=== PATIENT | male | born 1940 | race Caucasian/White ===

== ENCOUNTER 2017-02-05 11:44 | Inpatient (IN) | payer OTHER ==
[~2017-02-05] VITALS: Ht 175.3 cm; Wt 99.8 kg
--- NOTE | 2017-02-05 11:58 | NUR ---
PT STATES THAT HE HAS BEEN HAVING INCREASED URINATION AND MID ABD PAIN, APPETITE HAS BEEN FOR THE PAST FEW DAYS ABLE TO EAT BUT ONLY SOUPS ANS DRINK JUICES. PT STATES THAT HE NOTED THAT HE IS LEAKING URINE SO HE HAS TO WHERE A PAD.PT STATES THAT HE ALSO WAS JUST TREATED FOR YEAST INFECTION BY DR CASTELLANO.
--- NOTE | 2017-02-05 12:28 | NUR ---
LAB UNABLE TO ACCEPT URINE LABEL WAS DATED 2011 PLEASE RECOLLECT URINE WHEN PT IS ABLE TO GO AGAIN
--- NOTE | 2017-02-05 12:35 | NUR ---
PT AMB TO ROOM 2, AWAITING EVAL.
--- NOTE | 2017-02-05 12:42 | ED GENERAL ADULT ---
See Addendum History of Present Illness General Chief Complaint: General Adult Stated Complaint: PT WAS SIB DR Source: patient, family Exam Limitations: no limitations Vital Signs & Intake/Output Vital Signs & Intake/Output Vital Signs Date Time Temp Pulse Resp B/P B/P Pulse O2 O2 Flow FiO2 Mean Ox Delivery Rate 02/10 0838 78 130/80 02/09 0837 78 130/80 02/09 0658 98.5 70 16 122/82 96 Room Air 02/08 2246 98.7 71 20 122/72 95 02/08 1427 97.7 85 20 122/60 96 Room Air ED Intake and Output 02/09 0000 02/08 1200 Intake Total 700 320 Output Total 400 900 Balance 300 -580 Intake, IV 100 120 Intake, Oral 600 200 Output, Urine 400 900 Allergies Coded Allergies: No Known Allergies (02/05/17) Triage Note: PT STATES THAT HE HAS BEEN HAVING INCREASED URINATION AND MID ABD PAIN, APPETITE HAS BEEN FOR THE PAST FEW DAYS ABLE TO EAT BUT ONLY SOUPS ANS DRINK JUICES. PT STATES THAT HE NOTED THAT HE IS LEAKING URINE SO HE HAS TO WHERE A PAD.PT STATES THAT HE ALSO WAS JUST TREATED FOR YEAST INFECTION BY DR SANTOS. Triage Nurses Notes Reviewed? yes Onset: Gradual Duration: day(s): (5) Timing: no prior history Injury Environment: home Severity: severe Severity Numbers: 8 No Modifying Factors: none HPI: Patient is a 77-year-old male presenting to the emergency department with his sister with chief complaint of worsening urinary incontinence and malaise with weakness and dry mouth over the past 5 days. It started after Wednesday. He was seen and evaluated last week for an upper respiratory infection, put on antibiotics. Patient reports that he's been feeling "foggy" for the past 5 days. Denies any dysuria. No hematuria. He saw Dr. Santos after he saw his primary care physician and he was diagnosed with a fungal infection on his penis. He was treated with a topical ointment which has improved the rash. Patient denying fevers but reports chills. No chest pain. No shortness of breath. He called Dr. Santos regarding the urinary incontinence and he said it could be related to the medications he is put on. No history of diabetes. (DOREEN GARCÍA,NEGRA) Reconcile Medications Cephalexin 500 MG CAPSULE 1 CAP PO WEEKLY ABX (Reported) Fish Oil/Borage/Flax/Om3,6,9#1 ([place] 3-6-9 1,200 MG Softgel) 1,200 MG CAPSULE 1 CAP PO DAILY SUPPLEMENT (Reported) Multivitamin (One Daily Multivitamin) 1 EACH TABLET 1 TAB PO DAILY SUPPLEMENT (Reported) Rosuvastatin Calcium (Crestor) 5 MG TABLET 1 TAB PO DAILY CHOLESTEROL ( Reported) Trandolapril 1 MG TABLET 1 MG PO D HTN (Reported) Ubidecarenone (Coq-10) 100 MG CAPSULE 200 MG PO D HEART (Reported) (MELISSA CHAUHAN,JONNA) Past History Travel History Traveled to [place] past 21 day No Medical History Any Pertinent Medical History? 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 No (NEGRA GUZMAN) Review of Systems Review of Systems Constitutional: Reports: malaise, weakness. Comments Review of systems: See HPI, All other systems negative. Constitutional, no chills fever or weight loss HEENT: No visual changes no sore throat Cardiovascular: No chest pain ,palpitation , orthopnea or ankle swelling Skin, no jaundice no rashes Respiratory: No dyspnea cough sputum or hemoptysis GI: No nausea no vomiting : No dysuria No hematuria Muscle skeletal: no back pain, no neck pain, Neurologic: No numbness Psych: No stress anxiety or depression,. Heme/endocrine: No bruising no bleeding no polyuria or polydipsia Immunology: No splenectomy or history of AIDS (NEGRA GUZMAN) Physical Exam Physical Exam General Appearance: well developed/nourished, no apparent distress, alert, awake , comfortable Comments: Well-developed well-nourished person in no acute distress HEENT: extraocular motion intact, no nystagmus. Pupils equally round and reactive to light and accommodation. Nose is atraumatic. External auditory canal and Tympanic membranes clear. Pharynx normal. No swelling or edema. Very dry oral mucosa. Dry cracked lips. Neck: Supple, no lymphadenopathy, normal range of motion without pain or tenderness Back: Nontender, no CVA tenderness. Full range of motion Cardiovascular: Regular rate and rhythms no murmurs rubs or gallops, normal JVP Respiratory: Chest nontender. No respiratory distress.breath sounds clear to auscultation bilaterally Abdomen: Soft, mild tenderness to palpation in the suprapubic region, nondistended, no appreciable organomegaly. Normal bowel sounds. No ascites, no rebound or guarding, gu: No rashes, no testicular pain with palpation. Urine actively coming out of the urethra with movement of the penis. Extremity: No edema, no calf tenderness to palpation, normal and equal pulses. Muscular strength is 5 out of 5 in upper and lower extremities. Asset Manager strength is equal and symmetric bilaterally. Neuro: Alert oriented x3, motor sensory normal, cranial nerves II through XII grossly intact. Cerebellar testing is unremarkable. Skin: No appreciable rash on exposed skin, skin is warm and dry. Psych: Mood and affect is normal, memory and judgment is normal. Core Measures ACS in differential dx? Yes CVA/TIA Diagnosis: No Severe Sepsis Present: No Septic Shock Present: No (DOREEN GARCÍA,NEGRA) Progress Differential Diagnoses I considered the following diagnoses in my evaluation of the patient: Electrolyte abnormality, dehydration, New-onset diabetes, UTI, overflow incontinence Plan of Care: Orders Procedure Date/time Status CBC WITHOUT DIFFERENTIAL 02/09 06 Complete BASIC ELECTROLYTES PLUS BUN&CR 02/09 06 Complete Nursing Misc 02/08 UNK Active Current Medications Sig/Claire Start time Last Medication Dose Stop Time Status Admin Insulin Detemir 12 UNITS BID 02/07 2200 AC 02/09 (Levemir) 0836 Insulin Aspart 0 AT BEDTIME 02/06 2200 AC 02/08 (NovoLOG) 2150 Ampicillin 2,000 MG Q8H 02/06 1800 AC 02/09 (Omnipen-N- 0229 Polycillin 2GM Inj Eloisa) Sodium Chloride 100 ML (Normal Saline 0.9%) Lisinopril 10 MG DAILY 02/06 1429 AC 02/09 (Prinivil) 0838 Tamsulosin HCl 0.4 MG DAILY 02/06 1000 AC 02/09 (Flomax) 0837 Insulin Aspart 0 TIDAC 02/06 0900 AC 02/09 (NovoLOG) 0837 Atorvastatin Calcium 5 MG 1700 02/05 1800 AC 02/08 (Lipitor) 1604 Acetaminophen 325 MG Q6 PRN 02/05 1500 AC (Tylenol) Morphine Sulfate 1 MG Q4 PRN 02/05 1500 AC (Morphine) Oxycodone/ 1 TAB Q6 PRN 02/05 1500 AC Acetaminophen (Percocet) Laboratory Tests 02/09/17 0630: Anion Gap 7, Estimated GFR > 60, BUN/Creatinine Ratio 20.0, CBC w Diff NO MAN DIFF REQ, RBC 3.87 L, MCV 92.5, MCH 31.4 H, RDW 13.0, MPV 8.3, Gran % 51.4, Lymphocytes % 40.9, Monocytes % 4.3, Eosinophils % 3.0, Basophils % 0.4, Absolute Granulocytes 2.5, Absolute Lymphocytes 2.0, Absolute Monocytes 0.2, Absolute Eosinophils 0.1, Absolute Basophils 0, PUBS MCHC 34.0 Initial ED EKG: sinus rhythm at 76 bpm, peaked T waves in the anterolateral leads. Comments: 02/05/2017 1:08:44 PMpatient is alert and orientated mentating well. Patient has extremely dry oral mucosa, complaining about urinary incontinence 5 days. No history of diabetes. We will assess CBC, CMP, troponin and EKG. 02/05/2017 2:30:23 PM patient and family members informed of all lab work results. Patient likely in DKA. No acidosis noted on arterial blood gas. Patient will go to the ICU. IV fluids still infusing. Patient also received calcium gluconate to help stabilize cardiac membranes. 02/05/2017 3:09:34 PM patient will be admitted to the ICU for DKA new onset diabetes. Blood glucose level is 1149. Patient is hyperkalemic, peaked T waves on EKG. Insulin drip going. Spoke with Dr. Tolliver and MOD. (NEGRA GUZMAN) Departure Departure Time of Disposition: 1435 Disposition: STILL A PATIENT Condition: Stable Clinical Impression Primary Impression: DKA (diabetic ketoacidoses) Qualifiers: Diabetes mellitus type: type 2 Diabetes mellitus complication detail: without coma Qualified Code: E13.10 - Other specified diabetes mellitus with ketoacidosis without coma Secondary Impressions: Acute electrocardiogram changes, Hyperkaluria Referrals: TOMA TOLLIVER MD (PCP/Family) Departure Forms: Customer Survey General Discharge Information Admission Note Spoke With: TOMA TOLLIVER MD Documentation of Exam: Documentation of any treatments & extenuating circumstances including Concerns Regarding Discharge (functional status, medication knowledge or non-compliance, living conditions, etc.) that warrant an admission rather than observation: Patient requiring insulin drip for hyperglycemia and DKA, will need endocrinology consultation, medication administration/consultation, IV hydration , serial fingerstick checks. Discharge at this time and medically harmful. Patient will also need serial EKGs to make sure that peaked T waves trend down. (NEGRA GUZMAN) PA/UNDERWATER TRAPPER Co-Sign Statement Statement: ED Attending supervision documentation- [X] I saw and evaluated the patient. I have also reviewed all the pertinent lab results and diagnostic results. I agree with the findings and the plan of care as documented in the PA's/UNDERWATER TRAPPER's documentation. [X] I have reviewed the ED Record and agree with the PA's/UNDERWATER TRAPPER's documentation. [] Additions or exceptions (if any) to the PAs/UNDERWATER TRAPPER's note and plan are summarized below: [] (MELISSA CHAUHAN,JONNA) Critical Care Note Critical Care Note Critical Care Time: 30-74 min (NEGRA GUZMAN) 02/05/2017 2:30:23 PM patient and family members informed of all lab work results. Patient likely in DKA. No acidosis noted on arterial blood gas. Patient will go to the ICU. IV fluids still infusing. Patient also received calcium gluconate to help stabilize cardiac membranes. 02/05/2017 3:09:34 PM patient will be admitted to the ICU for DKA new onset diabetes. Blood glucose level is 1149. Patient is hyperkalemic, peaked T waves on EKG. Insulin drip going. Spoke with Dr. Tolliver and MOD. (NEGRA GUZMAN) Departure Departure Time of Disposition: 1435 Disposition: STILL A PATIENT Condition: Stable Clinical Impression Primary Impression: DKA (diabetic ketoacidoses) Qualifiers: Diabetes mellitus type: type 2 Diabetes mellitus complication detail: without coma Qualified Code: E13.10 - Other specified diabetes mellitus with ketoacidosis without coma Secondary Impressions: Acute electrocardiogram changes, Hyperkaluria Referrals: TOMA TOLLIVER MD (PCP/Family) Departure Forms: Customer Survey General Discharge Information Admission Note Spoke With: TOMA TOLLIVER MD Documentation of Exam: Documentation of any treatments & extenuating circumstances including Concerns Regarding Discharge (functional status, medication knowledge or non-compliance, living conditions, etc.) that warrant an admission rather than observation: Patient requiring insulin drip for hyperglycemia and DKA, will need endocrinology consultation, medication administration/consultation, IV hydration , serial fingerstick checks. Discharge at this time and medically harmful. Patient will also need serial EKGs to make sure that peaked T waves trend down. (NEGRA GUZMAN) PA/UNDERWATER TRAPPER Co-Sign Statement Statement: ED Attending supervision documentation- [X] I saw and evaluated the patient. I have also reviewed all the pertinent lab results and diagnostic results. I agree with the findings and the plan of care as documented in the PA's/UNDERWATER TRAPPER's documentation. [X] I have reviewed the ED Record and agree with the PA's/UNDERWATER TRAPPER's documentation. [] Additions or exceptions (if any) to the PAs/UNDERWATER TRAPPER's note and plan are summarized below: [] (MELISSA CHAUHAN,JONNA) Critical Care Note Critical Care Note Critical Care Time: 30-74 min (NEGRA GUZMAN)
--- NOTE | 2017-02-05 12:50 | NUR ---
URINE SENT. CLEAR AND REEVES TOP ONLY. RAQUEL LOGAN IN FOR EVAL.
[2017-02-05 13:21] LABS: ABSOLUTE BASOPHIL COUNT 0 /CUMM (0.0-0.2); ABSOLUTE EOSINOPHIL COUNT 0 /CUMM (0.0-0.7); ABSOLUTE GRANULOCYTE CT 11.1 /CUMM (1.4-6.5); ABSOLUTE LYMPH COUNT 0.7 /CUMM (1.2-3.4); ABSOLUTE MONOCYTE COUNT 0.5 /CUMM (0.10-0.60); BASOPHIL % 0.3 % (0.0-2.0); EOSINOPHIL % 0 % (0-5); HEMATOCRIT 47.2 % (42-52); MEAN CORPUSCULAR HGB 31.5 PG (27.0-31.0); MEAN CORPUSCULAR HGB CONC 33.1 G/DL (33.0-37.0); MEAN CORPUSCULAR VOLUME 95.2 FL (80.0-94.0); MEAN PLATELET VOLUME 9.2 FL (7.4-10.4); PLATELET COUNT 137 /CUMM (130-400); RBC DISTRIBUTION WIDTH 12.7 % (11.5-14.5); RED BLOOD CELL CT 4.96 /CUMM (4.70-6.10); WHITE BLOOD CELL COUNT 12.4 /CUMM (4.8-10.8)
[2017-02-05 13:41] LABS: GRANULOCYTE % 89.7 % (42.2-75.2)
--- NOTE | 2017-02-05 14:03 | NUR ---
CRITICAL TEST RESULTS [id number] AAKASH CHENEY F 77 M TESTS AND RESULTS: GLUCOSE 1146 & POTASSIUM 6.7 Results received and read back by: FÉLIX MONTENEGRO Results received date and time: 02/05/17 1404 The following provider was notified of the results, and read the results back: RAQUEL LOGAN AND ELDA CARMEN Notified date and time: 02/05/17 at 1404
--- NOTE | 2017-02-05 14:55 | History & Physical ---
See Addendum JLUIS CHAUHAN,SILVERIO 02/05/17 1454: General Information and HPI MD Statement: I have seen and personally examined AAKASH CHENEY and documented this H&P. The patient is a 77 year old M who presented with a patient stated chief complaint of urinary incontinence, polyuria and polydipsia. Source of Information: patient, family, old records Exam Limitations: no limitations History of Present Illness: Mr. Cheney is a 77-year-old gentleman with past medical history of hypertension, HLD, and BPH who presented to the emergency department on 02/05/2017 complaining of urinary incontinence, polyuria and polydipsia. The patient states that approximately 4 weeks ago he developed a productive cough and symptoms of a URI. He visit with his primary care physician Dr. Tolliver who gave him an antibiotic [Cephalexin 500 mg (01/18-01/28)] and a short dose of prednisone (10 mg 01/18-01/29). On 01/25 the patient followed up with his urologist Dr. Santos who began the patient on finasteride (5 mg) and a combination of nystatin (100mg (01/25-02/04) and fluconazole (100 mg 01/25-02/04) for symptomatic relief from a questionable fungal infection which the patient had recently developed. Fungal infection was on his penis. He also has noted that he has continued to have urinary frequency with episodes occuring every 15 minutes. Approximately 24 hours ago patient found that he had decreasing control over his bladder up until early this afternoon when the patient came in with complete loss of bladder control. The patient does report that over the last 7 days he has decreased by mouth intake and has been unable to consume any food. During this time however, he has felt very thirsty. He denies any family history of diabetes His sister Lilian was present in the room at the time of the encounter. 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 Home Who Do You Live With? self Services at Home: None Primary Language: [place] R[place] Smoking Status: Never Smoked ETOH Use: heavy use, Daily Use. Glass of wine daily. . Illicit Drug Use: denies illicit drug use Functional Ability ADLs Independent: dressing, eating, toileting, bathing. Ambulation: independent IADLs Independent: shopping, housework, finances, food prep, telephone, transportation , medication admin. Review of Systems Review of Systems Constitutional: Reports: malaise, weakness. Denies: chills, diaphoresis, fever. Cardiovascular: Denies: chest pain, edema, orthopena, palpitations. Respiratory: Denies: cough, hemoptysis, orthopnea, short of breath. GI: Reports: distention. Denies: abdominal pain, bloating, constipation, diarrhea, bowel incontinence, melena, nausea, bloody stool. Genitourinary: Reports: frequency, hesitation, nocturia, pain, urgency. Denies: discharge, dysuria, hematuria. Musculoskeletal: Denies: back pain, gout, joint pain, joint swelling. Skin: Denies: cysts, change in skin color, change in hair/nails, dryness. Exam & Diagnostic Data Last 24 Hrs of Vital Signs/I&O Vital Signs Date Time Temp Pulse Resp B/P B/P Pulse O2 O2 Flow FiO2 Mean Ox Delivery Rate 02/05 1616 98.4 92 18 153/76 94 Room Air Room Air 02/05 1511 97.9 80 20 181/80 987 Room Air 02/05 1358 98.0 100 18 170/80 96 Room Air 02/05 1315 98 Room Air 02/05 1155 97.1 104 18 153/81 96 Room Air Intake & Output 02/05 1600 02/05 0800 02/05 0000 Intake Total 1000 Output Total Balance 1000 Intake, IV 1000 Patient 99.79 kg Weight Physical Exam General Appearance Alert, Oriented X3, Cooperative Skin Bilaterral Lower Extemity Warts Skin Temp/Moisture Exam: Warm/Dry HEENT Atraumatic, PERRLA, EOMI, Mucous Membranes Dry Cardiovascular Regular Rate, Normal S1, Normal S2 Lungs Clear to Auscultation Abdomen Normal Bowel Sounds, Soft, Distended, Tenderness on deep palpation Neurological Normal Gait, Normal Speech, Strength at 5/5 X4 Ext Extremities No Clubbing, No Cyanosis, No Edema, Normal Pulses Vascular Normal Pulses Reproductive (MALE) ? Penile Discharge. Evidence of urinary incontinence. Pad in place. Last 24 Hrs of Labs/Marck: Laboratory Tests 02/05/17 1410: pH 7.40, pCO2 33 L, pO2 76 L, HCO3 20 L, ABG O2 Sat (Measured) 93.0 L, Carboxyhemoglobin 0.8 L, O2 Concentration % .21, O2 Delivery Method RA, Phlebotomy Draw Site LEFT RADIAL 02/05/17 1310: Anion Gap 17 H, Estimated GFR 37 L, BUN/Creatinine Ratio 24.4, Glucose 1146 *H , Hemoglobin A1c 12.2 H, Serum Osmolality 355 H, Calcium 9.7, Total Bilirubin 0.8, AST 28, ALT 71, Alkaline Phosphatase 99, Troponin I < 0.01, Total Protein 6.4, Albumin 4.1, Globulin 2.3, Albumin/Globulin Ratio 1.8, CBC w Diff NO MAN DIFF REQ, RBC 4.96, MCV 95.2 H, MCH 31.5 H, RDW 12.7, MPV 9.2, Gran % 89.7 H, Lymphocytes % 5.7 L, Monocytes % 4.3, Eosinophils % 0, Basophils % 0.3, Absolute Granulocytes 11.1 H, Absolute Lymphocytes 0.7 L, Absolute Monocytes 0.5, Absolute Eosinophils 0, Absolute Basophils 0, PUBS MCHC 33.1, Acetone Level POSITIVE AT 1:4 DIL 02/05/17 1250: Urine Color YEL, Urine Clarity CLEAR, Urine pH 5.5, Ur Specific [place] <= 1.005 , Urine Protein NEG, Urine Ketones 15 H, Urine Nitrite NEG, Urine Bilirubin NEG , Urine Urobilinogen 0.2, Ur Leukocyte Esterase NEG, Ur Microscopic SEDIMENT EXAMINED, Urine RBC 1-3, Urine WBC 1-3 H, Ur Epithelial Cells RARE, Urine Bacteria RARE H, Urine Mucus RARE, Urine Hemoglobin MOD H, Urine Glucose >= 1000 H Microbiology 02/05 1630 UPPER RESP: Surveillance Culture - ORD 02/05 1630 GI: Surveillance Culture - ORD 02/05 1615 BLOOD: Blood Culture - RECD 02/05 1611 BLOOD: Blood Culture - RECD 02/05 1523 URINE ROUT: Urine Culture - ORD 02/05 1250 URINE ROUT: Urine Culture - RECD Diagnostic Data EKG Results Rate: 76 OR: 168 NSR Assessment/Plan Assessment: Mr. Cheney is a 77-year-old gentleman with past medical history of hypertension, HLD, and BPH who presented to the emergency department on 02/05/2017 complaining of urinary incontinence, polyuria and polydipsia. Patient currently admitted to the ICU for closer monitoring. Hyper osmolar hyperglycemic state Likely precipitated by recent illness and dehydration due to poor PO intake. We will begin the patinet on an Insulin drip, 10 units per hour. Bring down glucoase to below 250. Aim to maintain glucose between 180-250. Aggressive fluid hydration with NS, 1/2 normal Saline, with 20meq KCL and then D5 1/2 NS running at 200 ml/hour. Monitor Ins and outs. 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 (0.05-0.1 U/kg/H) Hyperkalemia Patient was initially given calcium gluconate in the emergency department. Repeat labs 1700 hrs. With continued infusion of insulin, patient will likely need potassium supplementation. Eneida A call was made out to Dr Moreno (covering for Dr Santos), routine consult will be placed for Wednesday02/08/2017. MARCO Hold Chi for now. Once creatinine values normalize, resume. History of BPH Continue finasteride Urology consult with Dr. Santos. Diet Nothing by mouth for now. Can advance diet once blood sugars are lower than 250 and patient expresses desire to begin PO intake. DVT prophylaxis Heparin subcutaneous Code Full code As Ranked By This Provider Problem List: 1. Hyperkaluria 2. DKA (diabetic ketoacidoses) Qualifiers Diabetes mellitus type: type 2 Diabetes mellitus complication detail: without coma Qualified Code: E13.10 - Other specified diabetes mellitus with ketoacidosis without coma Core Measures/Miscellaneous Acute Coronary Syndrome ACS Diagnosis: No Cerebrovascular Accident CVA/TIA Diagnosis: No Congestive Heart Failure CHF Diagnosis: No Venous Thromboembolism VTE Risk Factors: Acute medical illness [facility] prophylaxis d/t: No contraindications No VTE Pharm Prophylaxis d/t: No contraindications VTE Diagnosis: No VTE Type: NONE VTE Confirmed by (Test): NONE Severe Sepsis Severe Sepsis Present: No Septic Shock Septic Shock Present: No Miscellaneous Documentation Attending Case Discussed With: TOMA TOLLIVER MD Primary Care Physician: TOMA TOLLIVER MD Patient sees these Specialists Dr Santos Level of Patient Care: Critical Care (CRI) BRODY BRAY 02/05/17 1600: General Information and HPI Allergies/Medications Home Med list Cephalexin 500 MG CAPSULE 1 CAP PO WEEKLY ABX (Reported) Fish Oil/Borage/Flax/Om3,6,9#1 ([place] 3-6-9 1,200 MG Softgel) 1,200 MG CAPSULE 1 CAP PO DAILY SUPPLEMENT (Reported) Multivitamin (One Daily Multivitamin) 1 EACH TABLET 1 TAB PO DAILY SUPPLEMENT (Reported) Rosuvastatin Calcium (Crestor) 5 MG TABLET 1 TAB PO DAILY CHOLESTEROL ( Reported) Trandolapril 1 MG TABLET 1 MG PO D HTN (Reported) Ubidecarenone (Coq-10) 100 MG CAPSULE 200 MG PO D HEART (Reported) Resident Review Statement Resident Statement: examined this patient, 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 Patient reports that about a month back he had some upper respiratory tract infection and he was treated with by mouth cephalexin and by mouth prednisone for [address] Tolliver. At the same time he developed a fungal infection on his penis for which he was started on fluconazole and finasteride by Dr. Santos. For the past 1 week he has been feeling very weak and tired with decreased appetite. He was not taking any solid food, just drinking juices as he was very thirsty. He had increased urinary frequency and urgency and remembers going to the bathroom every 15 minutes. Symptoms worsened to the point that he became incontinent of urine and continues to be the same. He presumed everything was secondary to the new medications started by Dr. Santos and therefore he stopped taking them. Denied any fevers, chills, nausea, vomiting, chest pain, shortness of breath but complained of increased suprapubic discomfort which is worse today. Patient has no history of diabetes and has never had similar episodes in the past. As per his sister he had recent blood work at Dr. Tolliver's office showed normal sugar numbers. No family history of diabetes. At baseline, the patient is very active, drinks a glass of wine per day, does not smoke or use drugs. In the ED , pertinent labs showed white count of 12.4, H&H of 15/47.2, sodium 132, potassium 6.7, chloride 91, anion gap of 17, BU and 44, creatinine 1.8( normal baseline in the system), serum glucose 1146, hemoglobin A1c 12.2, serum osmolarity 355, negative troponins, normal LFTs. UA showed no infection, 15 ketones. U tox acetone positive AB.40/23/76/20 EKG sinus rhythm at 76 bpm, tall T waves in the anterolateral leads. Physical examination General : Obese, mild discomfort, awake alert and oriented 3 HEENT : PERRLA, EOMI, dry mucous membranes Chest : Clear breath sounds, no adventitious sounds CVS : Regular rhythm, S1-S2 heard, no murmurs Abdomen : Distended, suprapubic tenderness, no guarding/rigidity : Urinary incontinence , white discharge seen over the glans Extremities : No edema, Multiple small warts over bilateral feet . Assessment * Hyperosmolar hyperglycemic state( sugar>1000, ph>7.3, small amount of ketones) * Hypertension * Hyperlipidemia * BPH * Hyperkalemia * Hyponatremia * MARCO? due to dehydration * Incontinence * Fungal infection Plan * Patient is being admitted to the ICU for close monitoring * Endocrinology has been consulted. Recommendations appreciated. * Patient started on insulin drip at 10 units/hr, will be titrated down as sugar improves. Will transition to sc insulin once gap closes. * Water defit calculated about 6 L. Patient received 2 L in the ED. Continue hydration with IV NS at 250 mL per hour X 1 bag. Switch to half-normal NS after that. Start D5 half normal saline when sugar below 250 mg. * Accu-Cheks every 1 hour. * Recheck labs every 2 hrs. Monitor the electrolytes ( Na/ K/AG) and replete as needed. * Blood and urine cultures sent to r/o infection. UA clean * Love placed for incontinence. Urology consult with Dr. Santos as patient was being treated for a fungal infection of the penis. * Continue home medications for hyperlipidemia and BPH. BP stable now. Will hold Lisinopril given the MARCO. Can give Hydralazine prn for BP. * DVT Prophylaxis subcutaneous heparin * Nothing by mouth for now, but start diabetic diet once patient feels like eating. * Full code * Mild pain pathway
--- NOTE | 2017-02-05 15:15 | NUR ---
PT AWARE OF POC AND ADMISSION TO ICU. SISTER AT BEDSIDE. Informed waiting has been performed. REPORT HANDED OFF TO [facility] LEADELDA EDWARDS.
[2017-02-05] MEDS ORDERED: CRESTOR5 M1 PO (15:19)
[2017-02-05] MEDS ORDERED: TRANDOLAPRIL1 MG PO (15:20)
[2017-02-05] MEDS ORDERED: CEPHALEXIN500 M3 PO (15:21)
[2017-02-05] MEDS ORDERED: ONE DAILY MULT1 EAC2 PO (15:21)
[2017-02-05] MEDS ORDERED: COQ-10100 MG PO (15:21)
[2017-02-05] MEDS ORDERED: OMEGA 3-6-9 11200 MG PO (15:22)
--- NOTE | 2017-02-05 15:31 | NUR ---
HOUSE STAFF TO BEDSIDE FOR EVAL.
--- NOTE | 2017-02-05 15:36 | NUR ---
REPORT TO MANISH SCHROEDER IN ICU.
--- NOTE | 2017-02-05 16:26 | NUR ---
[facility] CALLED FOR PT TRANSPORT. BLOOD CULTURES DRAWN AND SENT. URINE TRIO SENT.
--- NOTE | 2017-02-05 17:00 | RADIOLOGY REPORT ---
EXAMINATION: XR PORTABLE CHEST CLINICAL INFORMATION: Cough. COMPARISON: Chest done on 09/07/2016. TECHNIQUE: Portable AP view of the chest was obtained. FINDINGS: Nonspecific bibasilar airspace disease is noted, new since prior study, may represent hypoventilatory, atelectatic changes, infiltrate or combination thereof. The remainder of the lung [place] bilaterally appear clear. The cardiomediastinal silhouette is within normal limits. There is no pleural effusion present. The visualized upper abdomen is unremarkable. IMPRESSION: Nonspecific bibasilar airspace disease, new since 09/07/2016, may represent infiltrate, atelectasis or combination thereof.
[2017-02-05 17:16] VITALS: BP 130/70
[2017-02-05 17:42] LABS: ABSOLUTE BASOPHIL COUNT 0 /CUMM (0.0-0.2); ABSOLUTE EOSINOPHIL COUNT 0 /CUMM (0.0-0.7); ABSOLUTE GRANULOCYTE CT 9.7 /CUMM (1.4-6.5); ABSOLUTE LYMPH COUNT 0.8 /CUMM (1.2-3.4); ABSOLUTE MONOCYTE COUNT 0.4 /CUMM (0.10-0.60); BASOPHIL % 0 % (0.0-2.0); EOSINOPHIL % 0 % (0-5); GRANULOCYTE % 89.3 % (42.2-75.2); HEMATOCRIT 43.4 % (42-52); MEAN CORPUSCULAR HGB 31.2 PG (27.0-31.0); MEAN CORPUSCULAR HGB CONC 33.7 G/DL (33.0-37.0); MEAN CORPUSCULAR VOLUME 92.5 FL (80.0-94.0); MEAN PLATELET VOLUME 9.1 FL (7.4-10.4); PLATELET COUNT 121 /CUMM (130-400); RBC DISTRIBUTION WIDTH 13.4 % (11.5-14.5); RED BLOOD CELL CT 4.69 /CUMM (4.70-6.10); WHITE BLOOD CELL COUNT 10.8 /CUMM (4.8-10.8)
--- NOTE | 2017-02-05 18:31 | Cons- Endocrinology ---
General Information and HPI Consulting Request Date of Consult: 02/05/17 Requested By: medical team Reason for Consult: Hyperglycemic hyperosmolar state Source of Information: patient Exam Limitations: no limitations History of Present Illness: This 77-year-old male felt a known history of diabetes came to emergency room because of lower abdominal discomfort. He also has had weakness over the past few days. He has noticed a lot of increased thirst and urination. He has been treated recently for a fungal infection by Dr. Santos. He had received a course of prednisone which he stopped about 1 week ago. There is no family history of diabetes. In the emergency room his blood sugar was found to be 1146. He was also found to be in urinary retention and a Love had to be inserted. Allergies/Medications Allergies: Coded Allergies: No Known Allergies (02/05/17) Home Med List: Cephalexin 500 MG CAPSULE 1 CAP PO WEEKLY ABX (Reported) Fish Oil/Borage/Flax/Om3,6,9#1 ([place] 3-6-9 1,200 MG Softgel) 1,200 MG CAPSULE 1 CAP PO DAILY SUPPLEMENT (Reported) Multivitamin (One Daily Multivitamin) 1 EACH TABLET 1 TAB PO DAILY SUPPLEMENT (Reported) Rosuvastatin Calcium (Crestor) 5 MG TABLET 1 TAB PO DAILY CHOLESTEROL ( Reported) Trandolapril 1 MG TABLET 1 MG PO D HTN (Reported) Ubidecarenone (Coq-10) 100 MG CAPSULE 200 MG PO D HEART (Reported) Review of Systems Review of Systems Constitutional: Denies: chills, fever. Cardiovascular: Denies: chest pain. Respiratory: Denies: cough. GI: Reports: abdominal pain (lower abdomen). Genitourinary: Reports: see HPI. Skin: Reports: no symptoms. 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 Home Who Do You Live With? self Services at Home: None Primary Language: Tajik Smoking Status: Never Smoked ETOH Use: heavy use, Daily Use. Glass of wine daily. . Illicit Drug Use: denies illicit drug use Functional Ability ADLs Independent: dressing, eating, toileting, bathing. Ambulation: independent IADLs Independent: shopping, housework, finances, food prep, telephone, transportation , medication admin. Exam & Diagnostic Data Last 24 Hrs of Vital Signs/I&O Vital Signs Date Time Temp Pulse Resp B/P B/P Pulse O2 O2 Flow FiO2 Mean Ox Delivery Rate 02/05 1716 95 Room Air 02/05 1716 98.2 93 16 130/70 95 Room Air 02/05 1616 98.4 92 18 153/76 94 Room Air Room Air 02/05 1511 97.9 80 20 181/80 987 Room Air 02/05 1358 98.0 100 18 170/80 96 Room Air 02/05 1315 98 Room Air 02/05 1155 97.1 104 18 153/81 96 Room Air Intake & Output 02/05 1600 02/05 0800 02/05 0000 Intake Total 1000 Output Total Balance 1000 Intake, IV 1000 Patient 220 lb Weight Vital Signs Date Time Temp Pulse Resp B/P B/P Pulse O2 O2 Flow FiO2 Mean Ox Delivery Rate 02/05 1716 95 Room Air 02/05 1716 98.2 93 16 130/70 95 Room Air 02/05 1616 98.4 92 18 153/76 94 Room Air Room Air 02/05 1511 97.9 80 20 181/80 987 Room Air 02/05 1358 98.0 100 18 170/80 96 Room Air 02/05 1315 98 Room Air 02/05 1155 97.1 104 18 153/81 96 Room Air Intake & Output 02/05 1600 02/05 0800 02/05 0000 Intake Total 1000 Output Total Balance 1000 Intake, IV 1000 Patient 220 lb Weight Physical Exam General Appearance: alert, awake, comfortable Head: normal appearance Ears, Nose, Throat: tongue is dry Neck: normal inspection Respiratory: normal breath sounds Cardiovascular: regular rate/rhythm Gastrointestinal: normal bowel sounds, soft, non-tender Extremities: normal inspection Skin: intact Labs/Marck Results: Laboratory Tests 02/05 02/05 1725 1700 Chemistry Sodium (137 - 145 mmol/L) 142 Cancelled Potassium (3.5 - 5.1 mmol/L) 4.5 Cancelled Chloride (98 - 107 mmol/L) 103 Cancelled Carbon Dioxide (22 - 30 mmol/L) 24 Cancelled Anion Gap (5 - 16) 16 Cancelled BUN (9 - 20 mg/dL) 41 H Cancelled Creatinine (0.7 - 1.2 mg/dL) 1.5 H Cancelled Estimated GFR (>60 ml/min) 45 L BUN/Creatinine Ratio Cancelled Glucose (65 - 99 mg/dL) 664 *H Calcium (8.4 - 10.2 mg/dL) 9.9 Phosphorus (2.5 - 4.5 mg/dL) 3.5 Magnesium (1.6 - 2.3 mg/dL) 2.8 H Total Bilirubin (0.2 - 1.3 mg/dL) 0.6 AST (17 - 59 U/L) 27 ALT (21 - 72 U/L) 64 Albumin (3.5 - 5.0 g/dL) 3.7 Hematology CBC w Diff NO MAN DIFF REQ WBC (4.8 - 10.8 /CUMM) 10.8 RBC (4.70 - 6.10 /CUMM) 4.69 L Hgb (14.0 - 18.0 G/DL) 14.6 Hct (42 - 52 %) 43.4 MCV (80.0 - 94.0 FL) 92.5 MCH (27.0 - 31.0 PG) 31.2 H RDW (11.5 - 14.5 %) 13.4 Plt Count (130 - 400 /CUMM) 121 L MPV (7.4 - 10.4 FL) 9.1 Gran % (42.2 - 75.2 %) 89.3 H Lymphocytes % (20.5 - 51.1 %) 7.2 L Monocytes % (1.7 - 9.3 %) 3.5 Eosinophils % (0 - 5 %) 0 Basophils % (0.0 - 2.0 %) 0 L Absolute Granulocytes (1.4 - 6.5 /CUMM) 9.7 H Absolute Lymphocytes (1.2 - 3.4 /CUMM) 0.8 L Absolute Monocytes (0.10 - 0.60 /CUMM) 0.4 Absolute Eosinophils (0.0 - 0.7 /CUMM) 0 Absolute Basophils (0.0 - 0.2 /CUMM) 0 PUBS MCHC (33.0 - 37.0 G/DL) 33.7 02/05 02/05 1410 1310 Blood Gas pH (7.35 - 7.45 PH) 7.40 pCO2 (35 - 45 TORR) 33 L pO2 (80 - 100 TORR) 76 L HCO3 (21 - 28 MEQ/L) 20 L ABG O2 Sat (Measured) (>96.0 %) 93.0 L Carboxyhemoglobin (1.5 - 5.0 %) 0.8 L O2 Concentration % .21 O2 Delivery Method RA Chemistry Sodium (137 - 145 mmol/L) 132 L Potassium (3.5 - 5.1 mmol/L) 6.7 *H Chloride (98 - 107 mmol/L) 91 L Carbon Dioxide (22 - 30 mmol/L) 24 Anion Gap (5 - 16) 17 H BUN (9 - 20 mg/dL) 44 H Creatinine (0.7 - 1.2 mg/dL) 1.8 H Estimated GFR (>60 ml/min) 37 L BUN/Creatinine Ratio (7 - 25 %) 24.4 Glucose (65 - 99 mg/dL) 1146 *H Hemoglobin A1c (4.2 - 5.8 %) 12.2 H Serum Osmolality (285 - 295 MOSM/KG) 355 H Calcium (8.4 - 10.2 mg/dL) 9.7 Total Bilirubin (0.2 - 1.3 mg/dL) 0.8 AST (17 - 59 U/L) 28 ALT (21 - 72 U/L) 71 Alkaline Phosphatase (< 127 U/L) 99 Troponin I (<0.11 ng/ml) < 0.01 Total Protein (6.3 - 8.2 g/dL) 6.4 Albumin (3.5 - 5.0 g/dL) 4.1 Globulin (1.9 - 4.2 gm/dL) 2.3 Albumin/Globulin Ratio (1.1 - 2.2 %) 1.8 Hematology CBC w Diff NO MAN DIFF REQ WBC (4.8 - 10.8 /CUMM) 12.4 H RBC (4.70 - 6.10 /CUMM) 4.96 Hgb (14.0 - 18.0 G/DL) 15.6 Hct (42 - 52 %) 47.2 MCV (80.0 - 94.0 FL) 95.2 H MCH (27.0 - 31.0 PG) 31.5 H RDW (11.5 - 14.5 %) 12.7 Plt Count (130 - 400 /CUMM) 137 MPV (7.4 - 10.4 FL) 9.2 Gran % (42.2 - 75.2 %) 89.7 H Lymphocytes % (20.5 - 51.1 %) 5.7 L Monocytes % (1.7 - 9.3 %) 4.3 Eosinophils % (0 - 5 %) 0 Basophils % (0.0 - 2.0 %) 0.3 Absolute Granulocytes (1.4 - 6.5 /CUMM) 11.1 H Absolute Lymphocytes (1.2 - 3.4 /CUMM) 0.7 L Absolute Monocytes (0.10 - 0.60 /CUMM) 0.5 Absolute Eosinophils (0.0 - 0.7 /CUMM) 0 Absolute Basophils (0.0 - 0.2 /CUMM) 0 PUBS MCHC (33.0 - 37.0 G/DL) 33.1 Miscellaneous Phlebotomy Draw Site LEFT RADIAL Toxicology Acetone Level (NEGATIVE) POSITIVE AT 1:4 DIL 02/05 1250 Urines Urine Color (YEL,AMB,STR) YEL Urine Clarity (CLEAR) CLEAR Urine pH (5.0 - 8.0) 5.5 Ur Specific [place] (1.001 - 1.035) <= 1.005 Urine Protein (NEG,<30 MG/DL) NEG Urine Ketones (NEG) 15 H Urine Nitrite (NEG) NEG Urine Bilirubin (NEG) NEG Urine Urobilinogen (0.1 - 1.0 EU/dl) 0.2 Ur Leukocyte Esterase (NEG) NEG Ur Microscopic SEDIMENT EXAMINED Urine RBC (0 - 5 /HPF) 1-3 Urine WBC (0 - 2 /HPF) 1-3 H Ur Epithelial Cells (NONE,FEW) RARE Urine Bacteria (NEG/NONE) RARE H Urine Mucus (FEW,NONE) RARE Urine Hemoglobin (NEG) MOD H Urine Glucose (N MG/DL) >=1000 H Assessment/Plan Assessment/Plan This patient has a hyperglycemic hyperosmolar state. His anion gap is mildly elevated but this is not a significant degree of ketoacidosis. He also has evidence of renal insufficiency possibly Acute on Chronic Renal Disease. Patient Is Presently on an Insulin Drip at 10 Units per Hour. We Are Going to Continue the Insulin Drip and Measure His Sugar Every Hour. After this liter of normal saline we should switch his IV to half-normal saline with 20 mEq KCl at 250 mL per hour. His repeat potassium is down to 4.5 and his creatinine has improved to 1.5.. When his fingerstick sugar gets to 250 we should switch to D5 half-normal saline with 20 mEq KCl at 200 mL per hour. We can continue the insulin drip at that time and adjust the rate of the insulin drip to keep his blood sugar in the 180- 200 range. We can allow him to drink water since he is alert awake and has no trouble swallowing. I would repeat his lab work every 4 hours. Consult Acknowledgment - Thank you for your consult request.
--- NOTE | 2017-02-05 18:46 | Admission Certification ---
Admission Certification Certification Statement - As attending physician, I certify that at the time of - admission, based on clinical presentation, severity of - symptoms, need for further diagnostic testing and - therapeutic interventions, and risk of adverse outcomes - without in-hospital treatment, in my clinical assessment, - this patient requires an acute hospital stay for a minimum - of two nights or longer. I have also considered psychsocial - factors such as support system, advanced age, financial - issues, cognitive issues, and failed out-patient treatments, - past re-admission history, safety of patient, and lack of - compliance as applicable. Specific rationale supporting this admission is: new onset of diabetis with DKA
--- NOTE | 2017-02-05 18:56 | PN- Att Addend ---
Attending Addendum Attending Brief Note 77-year-old white male no previous history of diabetes , having some urological problems followed by a urologist on medications even had some steroids for the last few days having polydipsia not feeling well comes to the emergency room weak and very high sugars,abnormal electrolytes was treated with insulin drip and IV fluids, admitted to the ICU, following closely blood work, seen by Dr. Monterroso endocrinology patient already improved Laboratory Tests 02/05 02/05 1725 1700 Chemistry Sodium (137 - 145 mmol/L) 142 Cancelled Potassium (3.5 - 5.1 mmol/L) 4.5 Cancelled Chloride (98 - 107 mmol/L) 103 Cancelled Carbon Dioxide (22 - 30 mmol/L) 24 Cancelled Anion Gap (5 - 16) 16 Cancelled BUN (9 - 20 mg/dL) 41 H Cancelled Creatinine (0.7 - 1.2 mg/dL) 1.5 H Cancelled Estimated GFR (>60 ml/min) 45 L BUN/Creatinine Ratio Cancelled Glucose (65 - 99 mg/dL) 664 *H Calcium (8.4 - 10.2 mg/dL) 9.9 Phosphorus (2.5 - 4.5 mg/dL) 3.5 Magnesium (1.6 - 2.3 mg/dL) 2.8 H Total Bilirubin (0.2 - 1.3 mg/dL) 0.6 AST (17 - 59 U/L) 27 ALT (21 - 72 U/L) 64 Albumin (3.5 - 5.0 g/dL) 3.7 Hematology CBC w Diff NO MAN DIFF REQ WBC (4.8 - 10.8 /CUMM) 10.8 RBC (4.70 - 6.10 /CUMM) 4.69 L Hgb (14.0 - 18.0 G/DL) 14.6 Hct (42 - 52 %) 43.4 MCV (80.0 - 94.0 FL) 92.5 MCH (27.0 - 31.0 PG) 31.2 H RDW (11.5 - 14.5 %) 13.4 Plt Count (130 - 400 /CUMM) 121 L MPV (7.4 - 10.4 FL) 9.1 Gran % (42.2 - 75.2 %) 89.3 H Lymphocytes % (20.5 - 51.1 %) 7.2 L Monocytes % (1.7 - 9.3 %) 3.5 Eosinophils % (0 - 5 %) 0 Basophils % (0.0 - 2.0 %) 0 L Absolute Granulocytes (1.4 - 6.5 /CUMM) 9.7 H Absolute Lymphocytes (1.2 - 3.4 /CUMM) 0.8 L Absolute Monocytes (0.10 - 0.60 /CUMM) 0.4 Absolute Eosinophils (0.0 - 0.7 /CUMM) 0 Absolute Basophils (0.0 - 0.2 /CUMM) 0 PUBS MCHC (33.0 - 37.0 G/DL) 33.7 02/05 02/05 1410 1310 Blood Gas pH (7.35 - 7.45 PH) 7.40 pCO2 (35 - 45 TORR) 33 L pO2 (80 - 100 TORR) 76 L HCO3 (21 - 28 MEQ/L) 20 L ABG O2 Sat (Measured) (>96.0 %) 93.0 L Carboxyhemoglobin (1.5 - 5.0 %) 0.8 L O2 Concentration % .21 O2 Delivery Method RA Chemistry Sodium (137 - 145 mmol/L) 132 L Potassium (3.5 - 5.1 mmol/L) 6.7 *H Chloride (98 - 107 mmol/L) 91 L Carbon Dioxide (22 - 30 mmol/L) 24 Anion Gap (5 - 16) 17 H BUN (9 - 20 mg/dL) 44 H Creatinine (0.7 - 1.2 mg/dL) 1.8 H Estimated GFR (>60 ml/min) 37 L BUN/Creatinine Ratio (7 - 25 %) 24.4 Glucose (65 - 99 mg/dL) 1146 *H Hemoglobin A1c (4.2 - 5.8 %) 12.2 H Serum Osmolality (285 - 295 MOSM/KG) 355 H Calcium (8.4 - 10.2 mg/dL) 9.7 Total Bilirubin (0.2 - 1.3 mg/dL) 0.8 AST (17 - 59 U/L) 28 ALT (21 - 72 U/L) 71 Alkaline Phosphatase (< 127 U/L) 99 Troponin I (<0.11 ng/ml) < 0.01 Total Protein (6.3 - 8.2 g/dL) 6.4 Albumin (3.5 - 5.0 g/dL) 4.1 Globulin (1.9 - 4.2 gm/dL) 2.3 Albumin/Globulin Ratio (1.1 - 2.2 %) 1.8 Hematology CBC w Diff NO MAN DIFF REQ WBC (4.8 - 10.8 /CUMM) 12.4 H RBC (4.70 - 6.10 /CUMM) 4.96 Hgb (14.0 - 18.0 G/DL) 15.6 Hct (42 - 52 %) 47.2 MCV (80.0 - 94.0 FL) 95.2 H MCH (27.0 - 31.0 PG) 31.5 H RDW (11.5 - 14.5 %) 12.7 Plt Count (130 - 400 /CUMM) 137 MPV (7.4 - 10.4 FL) 9.2 Gran % (42.2 - 75.2 %) 89.7 H Lymphocytes % (20.5 - 51.1 %) 5.7 L Monocytes % (1.7 - 9.3 %) 4.3 Eosinophils % (0 - 5 %) 0 Basophils % (0.0 - 2.0 %) 0.3 Absolute Granulocytes (1.4 - 6.5 /CUMM) 11.1 H Absolute Lymphocytes (1.2 - 3.4 /CUMM) 0.7 L Absolute Monocytes (0.10 - 0.60 /CUMM) 0.5 Absolute Eosinophils (0.0 - 0.7 /CUMM) 0 Absolute Basophils (0.0 - 0.2 /CUMM) 0 PUBS MCHC (33.0 - 37.0 G/DL) 33.1 Miscellaneous Phlebotomy Draw Site LEFT RADIAL Toxicology Acetone Level (NEGATIVE) POSITIVE AT 1:4 DIL 02/05 1250 Urines Urine Color (YEL,AMB,STR) YEL Urine Clarity (CLEAR) CLEAR Urine pH (5.0 - 8.0) 5.5 Ur Specific [place] (1.001 - 1.035) <= 1.005 Urine Protein (NEG,<30 MG/DL) NEG Urine Ketones (NEG) 15 H Urine Nitrite (NEG) NEG Urine Bilirubin (NEG) NEG Urine Urobilinogen (0.1 - 1.0 EU/dl) 0.2 Ur Leukocyte Esterase (NEG) NEG Ur Microscopic SEDIMENT EXAMINED Urine RBC (0 - 5 /HPF) 1-3 Urine WBC (0 - 2 /HPF) 1-3 H Ur Epithelial Cells (NONE,FEW) RARE Urine Bacteria (NEG/NONE) RARE H Urine Mucus (FEW,NONE) RARE Urine Hemoglobin (NEG) MOD H Urine Glucose (N MG/DL) >=1000 H
[2017-02-06] VITALS: BP 100/50
[2017-02-06 05:30] LABS: ABSOLUTE BASOPHIL COUNT 0 /CUMM (0.0-0.2); WHITE BLOOD CELL COUNT 9.7 /CUMM (4.8-10.8)
[2017-02-06 05:38] LABS: ABSOLUTE EOSINOPHIL COUNT 0.1 /CUMM (0.0-0.7); ABSOLUTE GRANULOCYTE CT 7.2 /CUMM (1.4-6.5); ABSOLUTE MONOCYTE COUNT 0.5 /CUMM (0.10-0.60); BASOPHIL % 0 % (0.0-2.0); EOSINOPHIL % 0.6 % (0-5); GRANULOCYTE % 74.4 % (42.2-75.2); MEAN CORPUSCULAR HGB 31.2 PG (27.0-31.0); MEAN CORPUSCULAR HGB CONC 33.3 G/DL (33.0-37.0); MEAN CORPUSCULAR VOLUME 93.6 FL (80.0-94.0); MEAN PLATELET VOLUME 8.7 FL (7.4-10.4); PLATELET COUNT 102 /CUMM (130-400); RBC DISTRIBUTION WIDTH 13.1 % (11.5-14.5); RED BLOOD CELL CT 3.95 /CUMM (4.70-6.10)
[2017-02-06 05:46] LABS: HEMATOCRIT 36.9 % (42-52)
--- NOTE | 2017-02-06 07:48 | PN- Att Addend ---
Attending Addendum Attending Brief Note Covering attending note. Overall patient looks very well he's awake alert no complaints. Glucose is morning is 126. Intake & Output 02/06 0800 02/06 0000 02/05 1600 Intake Total 1540 1587 1000 Output Total 300 1800 Balance 1240 -213 1000 Intake, IV 1500 1547 1000 Intake, Oral 40 40 Number 0 0 Bowel Movements Output, Urine 300 1800 Patient 220 lb 220 lb Weight Vital Signs Date Time Temp Pulse Resp B/P B/P Pulse O2 O2 Flow FiO2 Mean Ox Delivery Rate 02/06 97.8 66 14 100/50 95 Room Air Room Air 02/05 1716 95 Room Air 02/05 1716 98.2 93 16 130/70 95 Room Air 02/05 1616 98.4 92 18 153/76 94 Room Air Room Air 02/05 1511 97.9 80 20 181/80 987 Room Air 02/05 1358 98.0 100 18 170/80 96 Room Air 02/05 1315 98 Room Air 02/05 1155 97.1 104 18 153/81 96 Room Air Intake & Output 02/06 0800 02/06 0000 02/05 1600 Intake Total 1540 1587 1000 Output Total 300 1800 Balance 1240 -213 1000 Intake, IV 1500 1547 1000 Intake, Oral 40 40 Number 0 0 Bowel Movements Output, Urine 300 1800 Patient 220 lb 220 lb Weight Glucose this morning is 126. Examination Patient is awake alert oriented knowing in no acute distress. Neck is supple JVD is not raised no carotid bruit S1-S2 is normal Lungs air entry equal bilaterally no crepitations or rhonchi Abdomen is soft nontender bowel sounds are present Extremities no evidence of any calf tenderness and good pedal pulses are present bilaterally. Laboratory Tests 02/06 02/06 02/05 0510 0100 8 Chemistry Sodium (137 - 145 mmol/L) 146 H 147 H 147 H Potassium (3.5 - 5.1 mmol/L) 4.1 4.0 3.9 Chloride (98 - 107 mmol/L) 113 H 112 H 111 H Carbon Dioxide (22 - 30 mmol/L) 26 28 28 Anion Gap (5 - 16) 8 8 8 BUN (9 - 20 mg/dL) 32 H 34 H 37 H Creatinine (0.7 - 1.2 mg/dL) 1.1 1.2 1.2 Estimated GFR (>60 ml/min) > 60 58 L 58 L Glucose (65 - 99 mg/dL) 146 H 189 H 149 H Calcium (8.4 - 10.2 mg/dL) 8.5 8.9 9.3 Phosphorus (2.5 - 4.5 mg/dL) 2.9 3.6 3.2 Magnesium (1.6 - 2.3 mg/dL) 2.3 2.5 H 2.6 H Total Bilirubin (0.2 - 1.3 mg/dL) 0.3 0.3 0.4 AST (17 - 59 U/L) 25 25 27 ALT (21 - 72 U/L) 57 56 57 Albumin (3.5 - 5.0 g/dL) 2.4 L 2.8 L 3.1 L Hematology CBC w Diff NO MAN DIFF REQ WBC (4.8 - 10.8 /CUMM) 9.7 RBC (4.70 - 6.10 /CUMM) 3.95 L Hgb (14.0 - 18.0 G/DL) 12.3 L Hct (42 - 52 %) 36.9 L MCV (80.0 - 94.0 FL) 93.6 MCH (27.0 - 31.0 PG) 31.2 H RDW (11.5 - 14.5 %) 13.1 Plt Count (130 - 400 /CUMM) 102 L MPV (7.4 - 10.4 FL) 8.7 Gran % (42.2 - 75.2 %) 74.4 Lymphocytes % (20.5 - 51.1 %) 20.3 L Monocytes % (1.7 - 9.3 %) 4.7 Eosinophils % (0 - 5 %) 0.6 Basophils % (0.0 - 2.0 %) 0 L Absolute Granulocytes (1.4 - 6.5 /CUMM) 7.2 H Absolute Lymphocytes (1.2 - 3.4 /CUMM) 2.0 Absolute Monocytes (0.10 - 0.60 /CUMM) 0.5 Absolute Eosinophils (0.0 - 0.7 /CUMM) 0.1 Absolute Basophils (0.0 - 0.2 /CUMM) 0 PUBS MCHC (33.0 - 37.0 G/DL) 33.3 02/05 02/05 1725 1700 Chemistry Sodium (137 - 145 mmol/L) 142 Cancelled Potassium (3.5 - 5.1 mmol/L) 4.5 Cancelled Chloride (98 - 107 mmol/L) 103 Cancelled Carbon Dioxide (22 - 30 mmol/L) 24 Cancelled Anion Gap (5 - 16) 16 Cancelled BUN (9 - 20 mg/dL) 41 H Cancelled Creatinine (0.7 - 1.2 mg/dL) 1.5 H Cancelled Estimated GFR (>60 ml/min) 45 L BUN/Creatinine Ratio Cancelled Glucose (65 - 99 mg/dL) 664 *H Calcium (8.4 - 10.2 mg/dL) 9.9 Phosphorus (2.5 - 4.5 mg/dL) 3.5 Magnesium (1.6 - 2.3 mg/dL) 2.8 H Total Bilirubin (0.2 - 1.3 mg/dL) 0.6 AST (17 - 59 U/L) 27 ALT (21 - 72 U/L) 64 Albumin (3.5 - 5.0 g/dL) 3.7 Hematology CBC w Diff NO MAN DIFF REQ WBC (4.8 - 10.8 /CUMM) 10.8 RBC (4.70 - 6.10 /CUMM) 4.69 L Hgb (14.0 - 18.0 G/DL) 14.6 Hct (42 - 52 %) 43.4 MCV (80.0 - 94.0 FL) 92.5 MCH (27.0 - 31.0 PG) 31.2 H RDW (11.5 - 14.5 %) 13.4 Plt Count (130 - 400 /CUMM) 121 L MPV (7.4 - 10.4 FL) 9.1 Gran % (42.2 - 75.2 %) 89.3 H Lymphocytes % (20.5 - 51.1 %) 7.2 L Monocytes % (1.7 - 9.3 %) 3.5 Eosinophils % (0 - 5 %) 0 Basophils % (0.0 - 2.0 %) 0 L Absolute Granulocytes (1.4 - 6.5 /CUMM) 9.7 H Absolute Lymphocytes (1.2 - 3.4 /CUMM) 0.8 L Absolute Monocytes (0.10 - 0.60 /CUMM) 0.4 Absolute Eosinophils (0.0 - 0.7 /CUMM) 0 Absolute Basophils (0.0 - 0.2 /CUMM) 0 PUBS MCHC (33.0 - 37.0 G/DL) 33.7 02/05 02/05 1410 1310 Blood Gas pH (7.35 - 7.45 PH) 7.40 pCO2 (35 - 45 TORR) 33 L pO2 (80 - 100 TORR) 76 L HCO3 (21 - 28 MEQ/L) 20 L ABG O2 Sat (Measured) (>96.0 %) 93.0 L Carboxyhemoglobin (1.5 - 5.0 %) 0.8 L O2 Concentration % .21 O2 Delivery Method RA Chemistry Sodium (137 - 145 mmol/L) 132 L Potassium (3.5 - 5.1 mmol/L) 6.7 *H Chloride (98 - 107 mmol/L) 91 L Carbon Dioxide (22 - 30 mmol/L) 24 Anion Gap (5 - 16) 17 H BUN (9 - 20 mg/dL) 44 H Creatinine (0.7 - 1.2 mg/dL) 1.8 H Estimated GFR (>60 ml/min) 37 L BUN/Creatinine Ratio (7 - 25 %) 24.4 Glucose (65 - 99 mg/dL) 1146 *H Hemoglobin A1c (4.2 - 5.8 %) 12.2 H Serum Osmolality (285 - 295 MOSM/KG) 355 H Calcium (8.4 - 10.2 mg/dL) 9.7 Total Bilirubin (0.2 - 1.3 mg/dL) 0.8 AST (17 - 59 U/L) 28 ALT (21 - 72 U/L) 71 Alkaline Phosphatase (< 127 U/L) 99 Troponin I (<0.11 ng/ml) < 0.01 Total Protein (6.3 - 8.2 g/dL) 6.4 Albumin (3.5 - 5.0 g/dL) 4.1 Globulin (1.9 - 4.2 gm/dL) 2.3 Albumin/Globulin Ratio (1.1 - 2.2 %) 1.8 Hematology CBC w Diff NO MAN DIFF REQ WBC (4.8 - 10.8 /CUMM) 12.4 H RBC (4.70 - 6.10 /CUMM) 4.96 Hgb (14.0 - 18.0 G/DL) 15.6 Hct (42 - 52 %) 47.2 MCV (80.0 - 94.0 FL) 95.2 H MCH (27.0 - 31.0 PG) 31.5 H RDW (11.5 - 14.5 %) 12.7 Plt Count (130 - 400 /CUMM) 137 MPV (7.4 - 10.4 FL) 9.2 Gran % (42.2 - 75.2 %) 89.7 H Lymphocytes % (20.5 - 51.1 %) 5.7 L Monocytes % (1.7 - 9.3 %) 4.3 Eosinophils % (0 - 5 %) 0 Basophils % (0.0 - 2.0 %) 0.3 Absolute Granulocytes (1.4 - 6.5 /CUMM) 11.1 H Absolute Lymphocytes (1.2 - 3.4 /CUMM) 0.7 L Absolute Monocytes (0.10 - 0.60 /CUMM) 0.5 Absolute Eosinophils (0.0 - 0.7 /CUMM) 0 Absolute Basophils (0.0 - 0.2 /CUMM) 0 PUBS MCHC (33.0 - 37.0 G/DL) 33.1 Miscellaneous Phlebotomy Draw Site LEFT RADIAL Toxicology Acetone Level (NEGATIVE) POSITIVE AT 1:4 DIL 02/05 1250 Urines Urine Color (YEL,AMB,STR) YEL Urine Clarity (CLEAR) CLEAR Urine pH (5.0 - 8.0) 5.5 Ur Specific [place] (1.001 - 1.035) <= 1.005 Urine Protein (NEG,<30 MG/DL) NEG Urine Ketones (NEG) 15 H Urine Nitrite (NEG) NEG Urine Bilirubin (NEG) NEG Urine Urobilinogen (0.1 - 1.0 EU/dl) 0.2 Ur Leukocyte Esterase (NEG) NEG Ur Microscopic SEDIMENT EXAMINED Urine RBC (0 - 5 /HPF) 1-3 Urine WBC (0 - 2 /HPF) 1-3 H Ur Epithelial Cells (NONE,FEW) RARE Urine Bacteria (NEG/NONE) RARE H Urine Mucus (FEW,NONE) RARE Urine Hemoglobin (NEG) MOD H Urine Glucose (N MG/DL) >=1000 H Microbiology Date/Time Procedure - Status Source Growth 02/05 192 Urine Culture - RECD URINE ROUT 02/05 163 Surveillance Culture - RECD UPPER RESP 02/05 1630 Surveillance Culture - CAN GI Cancelled: PATIENT REFUSED. 02/05 1615 Blood Culture - RES BLOOD GRAM POSITIVE COCCI 02/05 1611 Blood Culture - RECD BLOOD 02/05 1523 Urine Culture - COLB URINE ROUT 02/05 1250 Urine Culture - RECD URINE ROUT Blood cultures 1 is bottle is positive for gram-positive rods and chains Assessment * Hyperosmolar hyperglycemic state( sugar>1000, ph>7.3, small amount of ketones) * Hypertension * Hyperlipidemia * BPH * Hyperkalemia * Hyponatremia * MARCO? due to dehydration * Incontinence Plan currently on insulin drip which been tapered down by Joey Monterroso MD [facility] the urinary incontinence currently has a Love catheter Patient currently not on any antibiotics but once her blood cultures positive possibly contaminant will identify the organism also look for the other set of blood cultures. EKG shows low-voltage left axis deviation.
[2017-02-06 08:00] VITALS: BP 118/60
--- NOTE | 2017-02-06 08:06 | PN- Housestaff ---
Subjective Follow-up For: Hyperosmolar hyperglycemic state Urinary incontinence Subjective: Patient was seen and examined this morning, he is lying comfortably on bed with no signs of acute distress, alert oriented 3. Patient denied any abdominal pain, nausea, vomiting. We started his diet this morning and he was able to eat 30-40% of his breakfast. Patient denied any shortness of breath, cough, chest pain. Denied any lightheadedness, blurry vision, headache. Patient denied any burning with urination, has Zelaya catheter in place with clear urine. Review of Systems Constitutional: Reports: see HPI. Objective Last 24 Hrs of Vital Signs/I&O Vital Signs Date Time Temp Pulse Resp B/P B/P Pulse O2 O2 Flow FiO2 Mean Ox Delivery Rate 02/06 1209 64 130/60 02/06 0800 96 Room Air 02/06 0800 98.6 69 15 118/60 96 Room Air 02/06 0000 97.8 66 14 100/50 95 Room Air Room Air 02/05 1716 95 Room Air 02/05 1716 98.2 93 16 130/70 95 Room Air 02/05 1616 98.4 92 18 153/76 94 Room Air Room Air 02/05 1511 97.9 80 20 181/80 987 Room Air Intake & Output 02/06 1600 02/06 0800 02/06 0000 Intake Total 1540 1587 Output Total 300 1800 Balance 1240 -213 Intake, IV 1500 1547 Intake, Oral 40 40 Number 0 0 Bowel Movements Output, Urine 300 1800 Patient 99.79 kg 99.79 kg Weight Physical Exam General Appearance: Alert, Oriented X3, Cooperative, No Acute Distress Skin: No Rashes, No Breakdown, No Significant Lesion Skin Temp/Moisture Exam: Warm/Dry Sepsis Skin Exam (color): Normal for Ethnicity HEENT: Atraumatic, PERRLA, EOMI, Mucous Membr. moist/pink Neck: Supple, No JVD Lymphatic: no cervical lymphadenopathy Cardiovascular: Regular Rate, Normal S1, Normal S2, No Murmurs Lungs: Clear to Auscultation, Normal Air Movement Abdomen: Normal Bowel Sounds, Soft, No Tenderness Neurological: Normal Gait, Normal Speech, Strength at 5/5 X4 Ext, Normal Tone, Sensation Intact, Cranial Nerves 3-12 NL, Reflexes 2+ Extremities: No Clubbing, No Cyanosis, No Edema, Normal Pulses, No Tenderness/ Swelling Assessment/Plan Assessment: Mr. Upton is a 77-year-old gentleman with past medical history of hypertension, HLD, and BPH who presented to the emergency department on 02/05/2017 complaining of urinary incontinence, polyuria and polydipsia. Assessment * Hyperosmolar hyperglycemic state( sugar>1000, ph>7.3, small amount of ketones) * Hypertension, Hyperlipidemia * BPH * MARCO * Urinary Incontinence * Fungal infection Plan #Hyperosmolar hyperglycemic state( sugar>1000, ph>7.3, small amount of ketones) -Blood sugar this morning is 146, anion gap is closed 8, will switch to levemir 10 mg twice a day and NovoLog sliding scale before meals and separate 1 at bedtime -Endocrine consultation was obtained, thanks for recommendation -Accu-Chek 3 times a day before meals and at bedtime -Potassium 4.1, sodium 146 -We'll start diet consistent carbohydrate 2 -DC IV fluid -Nutrition consultation was obtained, advancement to consistent carbohydrate 3 was recommended once patient tolerate the diet well #Hypertension and Hyperlipidemia -Patient creatinine value improved, 1.1 was 1.5 on admission -We will restart FATOU inhibitor, patient's home medication trandolipril 1 mg daily which is equivalent to lisinopril 10 mg daily -Continue atorvastatin 5 mg daily #MARCO -Mostly due to dehydration -Improved -On admission BUN/creatinine 41/1.5, this morning BUN/creatinine 32/1.1 -Diet was restarted -Encourage fluid intake #BPH -We'll start Flomax 0.4 mg daily -Zelaya catheter is in place, plan to remove zelaya catheter tomorrow morning -Follow up urine culture #Fungal infection -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 Diabetic hyperosmolar non-ketotic state 2. BPH (benign prostatic hyperplasia) Pain Ratin Pain Location: none Pain Goal: Pain 4 or less Pain Plan: Mild [place] pathway Tomorrow's Labs & Rationales: CBC ICU bundle
--- NOTE | 2017-02-06 08:30 | PN- Diabetes ---
Assessment/Plan Assessment: Patient feels improved. His labs have pretty much normalized except for mildly elevated serum sodium. His renal function is improved. Patient's labs this morning show glucose 140 6P 132, creatinine 1.1, sodium 146, potassium 4.1, chloride 113, carbon dioxide 26 anion gap 8. Albumin is low at 2.4 and liver tests are normal. There is one blood culture positive for gram-positive cocci. His urine cultures states pending receipt. Plan: Suggest that the patient be switched to subcutaneous insulin. We can begin Levemir 10 units twice a day first dose stat. The blood cultures should be drawn.e positive for gram-positive cocci may be a contaminant. Further blood cultur In addition we will begin NovoLog sliding scale. NovoLog sliding scale before meals should be 80-150 give 4 units NovoLog, 151-200 give 5 units NovoLog, 201- 250 give 6 units NovoLog, 251-300 give 7 units NovoLog, 301-350 give 8 units NovoLog, 351-400 give 9 units NovoLog. Accu-Chek should be done 4 times a day. We should do one additional fingerstick blood sugar 2 hours after breakfast. A separate bedtime sliding-scale should be written. Bedtime sliding-scale NovoLog should be less than 250 give no insulin, 251-300 give 2 units NovoLog 301-350 give 3 units NovoLog 351-400 give 4 units NovoLog. We should make sure that the patient's urine culture is in the lab has not another one should be done. Addition we should start him on Flomax 0.4 mg daily and perhaps his Love catheter can be removed by tomorrow morning. The one blood culture positive for gram-positive cocci may be a contaminant. Further blood cultures should be drawn. Subjective Subjective: Feels okay Review of Systems Constitutional: Denies: chills, fever. Cardiovascular: Denies: chest pain. Respiratory: Denies: cough, short of breath. Gastrointestinal: Denies: abdominal pain, nausea, vomiting. Skin: Reports: no symptoms. Objective Last 24 Hrs of Vital Signs/I&O Vital Signs Date Time Temp Pulse Resp B/P B/P Pulse O2 O2 Flow FiO2 Mean Ox Delivery Rate 02/06 0000 97.8 66 14 100/50 95 Room Air Room Air 02/06 1716 95 Room Air 04/21 1716 98.2 93 16 130/70 95 Room Air 02/05 1616 98.4 92 18 153/76 94 Room Air Room Air 02/05 1511 97.9 80 20 181/80 987 Room Air 02/05 1358 98.0 100 18 170/80 96 Room Air 02/05 1315 98 Room Air 02/05 1155 97.1 104 18 153/81 96 Room Air Vital Signs Date Time Temp Pulse Resp B/P B/P Pulse O2 O2 Flow FiO2 Mean Ox Delivery Rate 02/06 0000 97.8 66 14 100/50 95 Room Air Room Air 02/05 1716 95 Room Air 02/05 1716 98.2 93 16 130/70 95 Room Air 02/05 1616 98.4 92 18 153/76 94 Room Air Room Air 02/05 1511 97.9 80 20 181/80 987 Room Air 02/05 1358 98.0 100 18 170/80 96 Room Air 02/05 1315 98 Room Air 02/05 1155 97.1 104 18 153/81 96 Room Air Intake & Output 02/06 1600 02/06 0800 02/06 0000 Intake Total 1540 1587 Output Total 300 1800 Balance 1240 -213 Intake, IV 1500 1547 Intake, Oral 40 40 Number 0 0 Bowel Movements Output, Urine 300 1800 Patient 220 lb 220 lb Weight Physical Exam General Appearance: alert, awake, comfortable Head: normal appearance Neck: normal inspection Respiratory: normal breath sounds Cardiovascular: regular rate/rhythm Extremities: normal inspection Current Medications: Current Medications Sig/Claire Start time Last Medication Dose Route Stop Time Status Admin Acetaminophen 325 MG Q6 PRN 02/05 1500 AC PO Atorvastatin Calcium 5 MG 1700 02/05 1800 AC 02/05 PO 2030 Atorvastatin Calcium 5 MG DAILY 02/05 1715 CAN PO Calcium Chloride 0 .STK-MED ONE 02/05 1504 DC .ROUTE Calcium Chloride 0 .STK-MED ONE 02/05 1504 DC .ROUTE Calcium Gluconate 0 .STK-MED ONE 02/05 1506 DC IV Calcium Gluconate 1 GM ONCE ONE 02/05 1415 DC 02/05 Sodium Chloride 100 ML IV 02/05 1514 1500 Heparin Sodium 5,000 UNIT Q8 02/05 1454 AC 02/06 (Porcine) SC 0524 Insulin Detemir 10 UNITS BID 02/06 1000 UNVr SC Insulin Human Regular 100 UNIT Q24H 02/05 1530 DC 02/06 Sodium Chloride 100 ML IV 0526 Insulin Human Regular 100 UNIT ONCE ONE 02/05 1415 DC 02/05 Sodium Chloride 100 ML IV 02/05 1416 1450 Lisinopril 10 MG DAILY 02/05 1715 DC PO Morphine Sulfate 1 MG Q4 PRN 02/05 1500 AC IV Oxycodone/ 1 TAB Q6 PRN 02/05 1500 AC Acetaminophen PO Patient Medication 1 UNIT ONE NR 02/05 1730 [place] Teaching ED 02/05 1800 Patient Medication 1 UNIT ONE NR 02/05 1730 [place] Teaching ED 02/05 1800 Potassium Chloride 20 MEQ Q5H 02/06 0400 DC 02/06 Dextrose/Sodium 1,000 ML IV 0525 Chloride Potassium Chloride 20 MEQ Q5H 02/05 2300 DC 02/06 Dextrose/Sodium 1,000 ML IV 0344 Chloride Potassium Chloride 20 MEQ Q4H 02/05 1915 DC 02/05 Sodium Chloride 1,000 ML IV 2029 Potassium Chloride 250 MEQ ONCE ONE 02/05 1900 CAN IV 02/05 1901 Potassium Chloride 20 MEQ ONCE ONE 02/05 1900 CAN Sodium Chloride 1,000 ML IV 02/05 2259 Sodium Chloride 1,000 ML ONCE ONE 02/05 1530 DC 02/05 IV 02/05 1929 1625 Sodium Chloride 1,000 ML BOLUS ONE 02/05 1415 DC 02/05 IV 02/05 1614 1450 Sodium Chloride 1,000 ML BOLUS ONE 02/05 1315 DC 02/05 IV 02/05 1514 1310 Findings Pertinent Lab/Marck Results: Laboratory Tests 02/06 02/06 02/05 0510 0100 2138 Chemistry Sodium (137 - 145 mmol/L) 146 H 147 H 147 H Potassium (3.5 - 5.1 mmol/L) 4.1 4.0 3.9 Chloride (98 - 107 mmol/L) 113 H 112 H 111 H Carbon Dioxide (22 - 30 mmol/L) 26 28 28 Anion Gap (5 - 16) 8 8 8 BUN (9 - 20 mg/dL) 32 H 34 H 37 H Creatinine (0.7 - 1.2 mg/dL) 1.1 1.2 1.2 Estimated GFR (>60 ml/min) > 60 58 L 58 L Glucose (65 - 99 mg/dL) 146 H 189 H 149 H Calcium (8.4 - 10.2 mg/dL) 8.5 8.9 9.3 Phosphorus (2.5 - 4.5 mg/dL) 2.9 3.6 3.2 Magnesium (1.6 - 2.3 mg/dL) 2.3 2.5 H 2.6 H Total Bilirubin (0.2 - 1.3 mg/dL) 0.3 0.3 0.4 AST (17 - 59 U/L) 25 25 27 ALT (21 - 72 U/L) 57 56 57 Albumin (3.5 - 5.0 g/dL) 2.4 L 2.8 L 3.1 L Hematology CBC w Diff NO MAN DIFF REQ WBC (4.8 - 10.8 /CUMM) 9.7 RBC (4.70 - 6.10 /CUMM) 3.95 L Hgb (14.0 - 18.0 G/DL) 12.3 L Hct (42 - 52 %) 36.9 L MCV (80.0 - 94.0 FL) 93.6 MCH (27.0 - 31.0 PG) 31.2 H RDW (11.5 - 14.5 %) 13.1 Plt Count (130 - 400 /CUMM) 102 L MPV (7.4 - 10.4 FL) 8.7 Gran % (42.2 - 75.2 %) 74.4 Lymphocytes % (20.5 - 51.1 %) 20.3 L Monocytes % (1.7 - 9.3 %) 4.7 Eosinophils % (0 - 5 %) 0.6 Basophils % (0.0 - 2.0 %) 0 L Absolute Granulocytes (1.4 - 6.5 /CUMM) 7.2 H Absolute Lymphocytes (1.2 - 3.4 /CUMM) 2.0 Absolute Monocytes (0.10 - 0.60 /CUMM) 0.5 Absolute Eosinophils (0.0 - 0.7 /CUMM) 0.1 Absolute Basophils (0.0 - 0.2 /CUMM) 0 PUBS MCHC (33.0 - 37.0 G/DL) 33.3 02/05 02/05 1725 1700 Chemistry Sodium (137 - 145 mmol/L) 142 Cancelled Potassium (3.5 - 5.1 mmol/L) 4.5 Cancelled Chloride (98 - 107 mmol/L) 103 Cancelled Carbon Dioxide (22 - 30 mmol/L) 24 Cancelled Anion Gap (5 - 16) 16 Cancelled BUN (9 - 20 mg/dL) 41 H Cancelled Creatinine (0.7 - 1.2 mg/dL) 1.5 H Cancelled Estimated GFR (>60 ml/min) 45 L BUN/Creatinine Ratio Cancelled Glucose (65 - 99 mg/dL) 664 *H Calcium (8.4 - 10.2 mg/dL) 9.9 Phosphorus (2.5 - 4.5 mg/dL) 3.5 Magnesium (1.6 - 2.3 mg/dL) 2.8 H Total Bilirubin (0.2 - 1.3 mg/dL) 0.6 AST (17 - 59 U/L) 27 ALT (21 - 72 U/L) 64 Albumin (3.5 - 5.0 g/dL) 3.7 Hematology CBC w Diff NO MAN DIFF REQ WBC (4.8 - 10.8 /CUMM) 10.8 RBC (4.70 - 6.10 /CUMM) 4.69 L Hgb (14.0 - 18.0 G/DL) 14.6 Hct (42 - 52 %) 43.4 MCV (80.0 - 94.0 FL) 92.5 MCH (27.0 - 31.0 PG) 31.2 H RDW (11.5 - 14.5 %) 13.4 Plt Count (130 - 400 /CUMM) 121 L MPV (7.4 - 10.4 FL) 9.1 Gran % (42.2 - 75.2 %) 89.3 H Lymphocytes % (20.5 - 51.1 %) 7.2 L Monocytes % (1.7 - 9.3 %) 3.5 Eosinophils % (0 - 5 %) 0 Basophils % (0.0 - 2.0 %) 0 L Absolute Granulocytes (1.4 - 6.5 /CUMM) 9.7 H Absolute Lymphocytes (1.2 - 3.4 /CUMM) 0.8 L Absolute Monocytes (0.10 - 0.60 /CUMM) 0.4 Absolute Eosinophils (0.0 - 0.7 /CUMM) 0 Absolute Basophils (0.0 - 0.2 /CUMM) 0 PUBS MCHC (33.0 - 37.0 G/DL) 33.7 02/05 02/05 1410 1310 Blood Gas pH (7.35 - 7.45 PH) 7.40 pCO2 (35 - 45 TORR) 33 L pO2 (80 - 100 TORR) 76 L HCO3 (21 - 28 MEQ/L) 20 L ABG O2 Sat (Measured) (>96.0 %) 93.0 L Carboxyhemoglobin (1.5 - 5.0 %) 0.8 L O2 Concentration % .21 O2 Delivery Method RA Chemistry Sodium (137 - 145 mmol/L) 132 L Potassium (3.5 - 5.1 mmol/L) 6.7 *H Chloride (98 - 107 mmol/L) 91 L Carbon Dioxide (22 - 30 mmol/L) 24 Anion Gap (5 - 16) 17 H BUN (9 - 20 mg/dL) 44 H Creatinine (0.7 - 1.2 mg/dL) 1.8 H Estimated GFR (>60 ml/min) 37 L BUN/Creatinine Ratio (7 - 25 %) 24.4 Glucose (65 - 99 mg/dL) 1146 *H Hemoglobin A1c (4.2 - 5.8 %) 12.2 H Serum Osmolality (285 - 295 MOSM/KG) 355 H Calcium (8.4 - 10.2 mg/dL) 9.7 Total Bilirubin (0.2 - 1.3 mg/dL) 0.8 AST (17 - 59 U/L) 28 ALT (21 - 72 U/L) 71 Alkaline Phosphatase (< 127 U/L) 99 Troponin I (<0.11 ng/ml) < 0.01 Total Protein (6.3 - 8.2 g/dL) 6.4 Albumin (3.5 - 5.0 g/dL) 4.1 Globulin (1.9 - 4.2 gm/dL) 2.3 Albumin/Globulin Ratio (1.1 - 2.2 %) 1.8 Hematology CBC w Diff NO MAN DIFF REQ WBC (4.8 - 10.8 /CUMM) 12.4 H RBC (4.70 - 6.10 /CUMM) 4.96 Hgb (14.0 - 18.0 G/DL) 15.6 Hct (42 - 52 %) 47.2 MCV (80.0 - 94.0 FL) 95.2 H MCH (27.0 - 31.0 PG) 31.5 H RDW (11.5 - 14.5 %) 12.7 Plt Count (130 - 400 /CUMM) 137 MPV (7.4 - 10.4 FL) 9.2 Gran % (42.2 - 75.2 %) 89.7 H Lymphocytes % (20.5 - 51.1 %) 5.7 L Monocytes % (1.7 - 9.3 %) 4.3 Eosinophils % (0 - 5 %) 0 Basophils % (0.0 - 2.0 %) 0.3 Absolute Granulocytes (1.4 - 6.5 /CUMM) 11.1 H Absolute Lymphocytes (1.2 - 3.4 /CUMM) 0.7 L Absolute Monocytes (0.10 - 0.60 /CUMM) 0.5 Absolute Eosinophils (0.0 - 0.7 /CUMM) 0 Absolute Basophils (0.0 - 0.2 /CUMM) 0 PUBS MCHC (33.0 - 37.0 G/DL) 33.1 Miscellaneous Phlebotomy Draw Site LEFT RADIAL Toxicology Acetone Level (NEGATIVE) POSITIVE AT 1:4 DIL 02/05 1250 Urines Urine Color (YEL,AMB,STR) YEL Urine Clarity (CLEAR) CLEAR Urine pH (5.0 - 8.0) 5.5 Ur Specific [place] (1.001 - 1.035) <= 1.005 Urine Protein (NEG,<30 MG/DL) NEG Urine Ketones (NEG) 15 H Urine Nitrite (NEG) NEG Urine Bilirubin (NEG) NEG Urine Urobilinogen (0.1 - 1.0 EU/dl) 0.2 Ur Leukocyte Esterase (NEG) NEG Ur Microscopic SEDIMENT EXAMINED Urine RBC (0 - 5 /HPF) 1-3 Urine WBC (0 - 2 /HPF) 1-3 H Ur Epithelial Cells (NONE,FEW) RARE Urine Bacteria (NEG/NONE) RARE H Urine Mucus (FEW,NONE) RARE Urine Hemoglobin (NEG) MOD H Urine Glucose (N MG/DL) >=1000 H
[2017-02-06 16:00] VITALS: BP 122/64
--- NOTE | 2017-02-06 17:45 | Event Note ---
Event Note Event Note: Patient has both sets of blood culture (02/05 2 tubes, 02/06 1 tube) positive for gram-positive cocci in chains and pairs. Over the phone consultation with Dr. Jabier Dominique MD was obtained. Will treat for enterococcus with ampicillin 2 g every 8, follow culture sensitivity tomorrow, recommendation for CT abdomen and pelvis to look for any signs of urinary obstruction given history of BPH versus abdominal pathology. Patient is hemodynamically stable, afebrile, no leukocytosis. Patient is Asymptomatic. Resident made aware. We'll continue to follow.
--- NOTE | 2017-02-06 21:58 | CT SCAN REPORT ---
EXAMINATION: CT ABDOMEN AND PELVIS WITHOUT AND WITH CONTRAST CLINICAL INFORMATION: Septicemia COMPARISON: CT chest 09/29/2016 TECHNIQUE: Multidetector volumetric imaging was performed through the abdomen prior to IV contrast. The abdomen and pelvis were then reexamined after the administration of 94 mL Optiray 320 intravenous contrast. Sagittal and coronal reformatted images were obtained on the technologist's workstation. DLP: 1099.9 mGy-cm FINDINGS: LUNG BASES: The visualized lung bases are unremarkable. LIVER, GALLBLADDER, AND BILIARY TREE: The liver is grossly unremarkable on this noncontrast study. There is a hypodense lesion within segment 7 of the liver measuring 1 cm in size which is too small to characterize (image 67, series 3). The gallbladder is mildly distended. There is no pericholecystic fluid or wall edema. High density layering material is present within the gallbladder. PANCREAS: There are numerous punctate densities scattered throughout the pancreas. There is a cystic lesion within the tail of the pancreas measuring 1.3 cm which is best appreciated on the coronal images (image 47, series 602). SPLEEN: Unremarkable. ADRENAL GLANDS: Unremarkable. KIDNEYS AND URETERS: There is no hydronephrosis. There is symmetric bilateral perinephric stranding. An exophytic cystic structures identified lower pole of the right kidney measuring 1.3 cm. There are bilateral punctate densities within the collecting system of the kidneys consistent with nonfasting stones. BLADDER: A Love catheter is present within the bladder. Soft tissue stranding is noted surrounding the superior aspect of the bladder. GASTROINTESTINAL TRACT: There are no dilated loops of small or large bowel. Innumerable diverticula are seen involving the descending and sigmoid colon. The appendix is unremarkable. ABDOMINAL WALL: There is a small fat-containing inguinal hernia on the left. LYMPH NODES: Normal. VASCULAR: Unremarkable. PELVIC VISCERA: The prostate gland appears significantly enlarged measuring 8 cm in transverse diameter and extending superiorly into the bladder. There are numerous coarse calcifications at the base of the prostate. OSSEOUS STRUCTURES: There is a right-sided pars defect at the L5-S1 level. There are mild degenerative changes of the visualized portions of the lower thoracic lumbar spine. No spondylolisthesis. IMPRESSION: 1. Distended gallbladder without other CT evidence for acute cholecystitis. Correlation with patient's symptoms and consideration of dedicated right upper quadrant ultrasound is suggested. 2. Prostatomegaly. Inflammatory changes surrounding the upper portion of the bladder. Underlying bladder infection cannot be completely excluded. 3. Indeterminate cystic lesion within the tail of the pancreas. Evidence for repeated bouts of pancreatitis given the number of calcifications. Differential diagnostic considerations for the cystic mass within the pancreatic tail would include a pseudocyst versus a cystic pancreatic neoplasm. Consider further dedicated evaluation with ERCP or MRCP. 4. Indeterminant liver lesion. This is statistically most likely to represent a cyst. 5. Small exophytic cyst at the lower pole the right kidney. 6. Diverticulosis without CT evidence for acute diverticulitis.
[2017-02-06 23:52] VITALS: BP 120/50
--- NOTE | 2017-02-06 23:54 | NUR ---
PT ARRIVED TO FLOOR AT [facility]. 2250. A&O X 3. NO C/O PAIN. LUNGS CTA, NO EDEMA NOTED. BED LOW, LOCKED, CALL DÍAZ WITHIN REACH. MONITOR, MAINTAIN SAFETY PRECAUTIONS.
[2017-02-07 06:29] VITALS: BP 140/76
[2017-02-07 09:11] LABS: ABSOLUTE BASOPHIL COUNT 0 /CUMM (0.0-0.2); ABSOLUTE EOSINOPHIL COUNT 0.1 /CUMM (0.0-0.7); ABSOLUTE GRANULOCYTE CT 3.6 /CUMM (1.4-6.5); ABSOLUTE LYMPH COUNT 1.9 /CUMM (1.2-3.4); ABSOLUTE MONOCYTE COUNT 0.2 /CUMM (0.10-0.60); BASOPHIL % 0.3 % (0.0-2.0); EOSINOPHIL % 1.3 % (0-5); GRANULOCYTE % 61.8 % (42.2-75.2); HEMATOCRIT 37.9 % (42-52); MEAN CORPUSCULAR HGB 31.2 PG (27.0-31.0); MEAN CORPUSCULAR HGB CONC 33.6 G/DL (33.0-37.0); MEAN CORPUSCULAR VOLUME 92.7 FL (80.0-94.0); MEAN PLATELET VOLUME 8.9 FL (7.4-10.4); PLATELET COUNT 92 /CUMM (130-400); RBC DISTRIBUTION WIDTH 13.3 % (11.5-14.5); RED BLOOD CELL CT 4.09 /CUMM (4.70-6.10); WHITE BLOOD CELL COUNT 5.8 /CUMM (4.8-10.8)
--- NOTE | 2017-02-07 09:27 | PN- Diabetes ---
Assessment/Plan Assessment: The patient feels better. He still has a Love catheter inserted. He now has 2 blood cultures positive for gram-positive cocci and pairs and in chains. He has been placed on Unasyn. The CT scan of abdomen and pelvis shows evidence of chronic pancreatitis. With regard to his blood sugars patient is presently on 10 units of Levemir twice a day. He is on sliding scale NovoLog starting with 4 units 150 before meals. His fingerstick blood sugar this morning is 262. Yesterday his sugars were 230 to before breakfast, 347 before lunch, 310 before dinner, and 203 at bedtime. There are now two blood cultures positive for gram-positive cocci. He has been placed on IV Unasyn. His urine cultures is not complete. Plan: Suggest increase Levemir to 12 units twice a day. Adjust sliding-scale NovoLog before meals to be 80-150 give 4 units, 151-200 give 6 units, 201-250 give 7 units, 251-300 give 8 units, 301-350 give 9 units, 351-400 give 10 units. Patient has evidence of positive blood cultures. Jabier Dominique MD to see patient. Bedtime sliding-scale NovoLog should stay as written.. We should continue to check the blood sugars 4 times a day and further adjustments of his insulin may be necessary. Patient has a very large prostate. We should check his PSA which apparently he states his been in the 7-8 range for years. After a few doses of tamsulosin we can try to discontinue the Love catheter Subjective Subjective: Feels okay Review of Systems Constitutional: Denies: chills, fever. Cardiovascular: Denies: chest pain. Respiratory: Denies: cough, short of breath. Gastrointestinal: Denies: nausea, vomiting. Genitourinary: Reports: no symptoms (still has Love). Musculoskeletal: Denies: back pain. Skin: Reports: no symptoms. Objective Last 24 Hrs of Vital Signs/I&O Vital Signs Date Time Temp Pulse Resp B/P B/P Pulse O2 O2 Flow FiO2 Mean Ox Delivery Rate 02/07 0629 97.8 70 18 140/76 96 Room Air 02/06 2352 98.2 87 20 120/50 96 Room Air 02/06 1600 98.6 72 18 122/64 95 Room Air 02/06 1540 98.6 72 18 122/64 02/06 1209 64 130/60 Intake & Output 02/07 1600 02/07 0800 02/07 0000 Intake Total 720 655 Output Total 1250 1076 Balance -530 -421 Intake, IV 600 175 Intake, Oral 120 480 Number 0 Bowel Movements Output, Stool 1 Output, Urine 1250 1075 Vital Signs Date Time Temp Pulse Resp B/P B/P Pulse O2 O2 Flow FiO2 Mean Ox Delivery Rate 02/07 0629 97.8 70 18 140/76 96 Room Air 02/06 2352 98.2 87 20 120/50 96 Room Air 02/06 1600 98.6 72 18 122/64 95 Room Air 02/06 1540 98.6 72 18 122/64 02/06 1209 64 130/60 Intake & Output 02/07 1600 02/07 0800 02/07 0000 Intake Total 720 655 Output Total 1250 1076 Balance -530 -421 Intake, IV 600 175 Intake, Oral 120 480 Number 0 Bowel Movements Output, Stool 1 Output, Urine 1250 1075 Physical Exam General Appearance: alert, awake, comfortable Head: normal appearance Neck: normal inspection Respiratory: normal breath sounds Cardiovascular: regular rate/rhythm Abdomen: normal bowel sounds, soft, non-tender Extremities: normal inspection Skin: intact Current Medications: Current Medications Sig/Claire Start time Last Medication Dose Route Stop Time Status Admin Acetaminophen 325 MG Q6 PRN 02/05 1500 AC PO Ampicillin 2,000 MG Q8H 02/06 1800 AC 02/07 Sodium Chloride 100 ML IV 0154 Atorvastatin Calcium 5 MG 1700 02/05 1800 AC 02/06 PO 1613 Heparin Sodium 5,000 UNIT Q8 02/05 1454 DC 02/06 (Porcine) [place] 1322 Insulin Aspart 0 AT BEDTIME 02/06 2200 AC SC Insulin Aspart 0 TIDAC 02/06 0900 AC 02/07 VA 0808 Insulin Detemir 10 UNITS BID 02/06 1000 AC 02/06 SC 2136 Lisinopril 10 MG DAILY 02/06 1429 AC 02/06 PO 1540 Morphine Sulfate 1 MG Q4 PRN 02/05 1500 AC IV Oxycodone/ 1 TAB Q6 PRN 02/05 1500 AC Acetaminophen PO Sodium Chloride 1,000 ML ONCE ONE 02/06 1745 DC 02/06 IV 02/07 0704 1930 Tamsulosin HCl 0.4 MG DAILY 02/06 1000 AC 04/22 PO 1209 Findings Pertinent Lab/Marck Results: Laboratory Tests 02/07 0800 Chemistry Sodium (137 - 145 mmol/L) 141 Potassium (3.5 - 5.1 mmol/L) 4.0 Chloride (98 - 107 mmol/L) 110 H Carbon Dioxide (22 - 30 mmol/L) 26 Anion Gap (5 - 16) 6 BUN (9 - 20 mg/dL) 18 Creatinine (0.7 - 1.2 mg/dL) 0.9 Estimated GFR (>60 ml/min) > 60 Glucose (65 - 99 mg/dL) 223 H Calcium (8.4 - 10.2 mg/dL) 8.3 L Phosphorus (2.5 - 4.5 mg/dL) 2.8 Magnesium (1.6 - 2.3 mg/dL) 2.0 Total Bilirubin (0.2 - 1.3 mg/dL) 0.3 AST (17 - 59 U/L) 43 ALT (21 - 72 U/L) 72 Albumin (3.5 - 5.0 g/dL) 2.5 L Hematology CBC w Diff Pending WBC Pending RBC Pending Hgb Pending Hct Pending MCV Pending MCH Pending RDW Pending Plt Count Pending MPV Pending PUBS MCHC Pending
--- NOTE | 2017-02-07 09:45 | PN- Att Addend ---
Attending Addendum Attending Brief Note Covering attending note. Patient is comfortable has no new complaints at all. However his blood cultures Q grew gram-positive cocci in pairs and in chains. He was started on IV Unasyn. Is fully catheter will be discontinued today Current Medications Sig/Claire Start time Last Medication Dose Route Stop Time Status Admin Acetaminophen 325 MG Q6 PRN 02/05 1500 AC PO Ampicillin 2,000 MG Q8H 02/06 1800 AC 02/07 Sodium Chloride 100 ML IV 0154 Atorvastatin Calcium 5 MG 1700 02/05 1800 AC 02/06 PO 1613 Heparin Sodium 5,000 UNIT Q8 02/05 1454 DC 02/06 (Porcine) SC 1322 Insulin Aspart 0 AT BEDTIME 02/06 2200 AC SC Insulin Aspart 0 TIDAC 02/06 0900 AC 02/07 SC 0808 Insulin Detemir 10 UNITS BID 02/06 1000 AC 02/06 SC 2136 Lisinopril 10 MG DAILY 02/06 1429 AC 02/06 PO 1540 Morphine Sulfate 1 MG Q4 PRN 02/05 1500 AC IV Oxycodone/ 1 TAB Q6 PRN 02/05 1500 AC Acetaminophen PO Sodium Chloride 1,000 ML ONCE ONE 02/06 1745 DC 02/06 IV 02/07 0704 1930 Tamsulosin HCl 0.4 MG DAILY 02/06 1000 AC 02/06 PO 1209 On examination Patient is awake alert oriented 3 Neck is supple JVD is not raised No carotid bruit present. S1-S2 is normal Lungs are clear Abdomen is soft nontender bowel sounds are present. Blood cultures Positive for enterococcus Laboratory Tests 02/07 0800 Chemistry Sodium (137 - 145 mmol/L) 141 Potassium (3.5 - 5.1 mmol/L) 4.0 Chloride (98 - 107 mmol/L) 110 H Carbon Dioxide (22 - 30 mmol/L) 26 Anion Gap (5 - 16) 6 BUN (9 - 20 mg/dL) 18 Creatinine (0.7 - 1.2 mg/dL) 0.9 Estimated GFR (>60 ml/min) > 60 Glucose (65 - 99 mg/dL) 223 H Calcium (8.4 - 10.2 mg/dL) 8.3 L Phosphorus (2.5 - 4.5 mg/dL) 2.8 Magnesium (1.6 - 2.3 mg/dL) 2.0 Total Bilirubin (0.2 - 1.3 mg/dL) 0.3 AST (17 - 59 U/L) 43 ALT (21 - 72 U/L) 72 Albumin (3.5 - 5.0 g/dL) 2.5 L Hematology CBC w Diff Pending WBC Pending RBC Pending Hgb Pending Hct Pending MCV Pending MCH Pending RDW Pending Plt Count Pending MPV Pending PUBS MCHC Pending Assessment Sepsis Gram-positive for the cocci in chains and pairs enterococcus Patient is started on IV Unasyn. History of diabetic ketoacidosis Will obtain infectious disease consult. DC Love catheter.
--- NOTE | 2017-02-07 09:55 | Cons- Infect Disease ---
General Information and HPI Consulting Request Date of Consult: 02/07/17 Requested By: TOMA GUNTER MD Reason for Consult: Positive blood cultures for gram-positive cocci in pairs and chains Source of Information: patient History of Present Illness: This is a 77-year-old man with a history of hypertension and BPH, treated with Keflex and prednisone 2 1/2 weeks prior to admission for URI symptoms and Fluconazole and Nystatin for what was felt to be a Maryjo balanitis, and begun on Flomax at that time, admitted on February 05 with decreased oral intake, fatigue , urinary frequency and urgency over the past week and more recent onset of urinary incontinence and suprapubic discomfort with no fevers or chills. On admission he was afebrile. Laboratory data revealed a white blood cell count of 12,000, platelets 137,000, glucose 1146, BUN/creatinine 44 and 1.8, sodium 132, potassium 6.7, acetone +1:4, with normal liver enzymes, hemoglobin A1c 12.2, ABG 7.40/33/76 on room air. Urinalysis 1-3 RBC/1-3 WBCs. Chest x-ray revealed nonspecific bibasilar airspace disease. A Love catheter was inserted with 900 mL of urine obtained. He was given IV fluids, begun on an insulin drip and admitted to the ICU. On February 06 blood cultures 2 were reported positive for gram-positive cocci in pairs and chains. After discussion with me he was begun on Ampicillin. He has remained afebrile since admission and white blood cell count has decreased. He feels improved with no further suprapubic discomfort. Allergies/Medications Allergies: Coded Allergies: No Known Allergies (02/05/17) Home Med List: Cephalexin 500 MG CAPSULE 1 CAP PO WEEKLY ABX (Reported) Fish Oil/Borage/Flax/Om3,6,9#1 (Glade 3-6-9 1,200 MG Softgel) 1,200 MG CAPSULE 1 CAP PO DAILY SUPPLEMENT (Reported) Multivitamin (One Daily Multivitamin) 1 EACH TABLET 1 TAB PO DAILY SUPPLEMENT (Reported) Rosuvastatin Calcium (Crestor) 5 MG TABLET 1 TAB PO DAILY CHOLESTEROL ( Reported) Trandolapril 1 MG TABLET 1 MG PO D HTN (Reported) Ubidecarenone (Coq-10) 100 MG CAPSULE 200 MG PO D HEART (Reported) Past History Travel History Traveled to [place] past 21 day No Medical History Blood Transfusion Hx: No Neurological: NONE EENT: NONE Cardiovascular: hypertension, hyperlipidemia Respiratory: NONE Gastrointestinal: NONE Hepatic: NONE Renal: benign prost hyperplasia Musculoskeletal: NONE Psychiatric: NONE Endocrine: NONE Blood Disorders: NONE Cancer(s): NONE History of MRSA: No History of VRE: No History of CDIFF: No Isolation History: Standard Influenza Vaccine: 10/29/16 Tetanus Vaccine: Surgical History Surgical History: non-contributory Psychosocial History Where Do You Live? Home Who Do You Live With? self Services at Home: None Primary Language: Turkmen Smoking Status: Never Smoked ETOH Use: heavy use, Daily Use. Glass of wine daily. . Illicit Drug Use: denies illicit drug use Functional Ability ADLs Independent: dressing, eating, toileting, bathing. Ambulation: independent IADLs Independent: shopping, housework, finances, food prep, telephone, transportation , medication admin. Review of Systems Review of Systems All Other Systems: Reviewed and Negative Exam & Diagnostic Data Last 24 Hrs of Vital Signs/I&O Vital Signs Date Time Temp Pulse Resp B/P B/P Pulse O2 O2 Flow FiO2 Mean Ox Delivery Rate 02/07 0946 140/70 02/07 0946 140/70 02/07 0629 97.8 70 18 140/76 96 Room Air 02/06 2352 98.2 87 20 120/50 96 Room Air 02/06 1600 98.6 72 18 122/64 95 Room Air 02/06 1540 98.6 72 18 122/64 02/06 1209 64 130/60 Intake & Output 02/07 1600 02/07 0800 02/07 0000 Intake Total 720 655 Output Total 1250 1076 Balance -530 -421 Intake, IV 600 175 Intake, Oral 120 480 Number 0 Bowel Movements Output, Stool 1 Output, Urine 1250 1075 Physical Exam Other Physical Findings: He is awake and alert in no acute distress. He is afebrile. Skin reveals a birthmark on his right upper thigh and groin. HEENT exam is negative. Neck is supple with no adenopathy. Lungs are clear. Heart regular rhythm with no murmur. Abdomen is soft, nontender with positive bowel sounds. Back no CVA tenderness. Extremities no cyanosis, clubbing or edema. Neuro is without focality. Love catheter is in place. Last 24 Hours of Lab Results: Laboratory Tests 02/07 0800 Chemistry Sodium (137 - 145 mmol/L) 141 Potassium (3.5 - 5.1 mmol/L) 4.0 Chloride (98 - 107 mmol/L) 110 H Carbon Dioxide (22 - 30 mmol/L) 26 Anion Gap (5 - 16) 6 BUN (9 - 20 mg/dL) 18 Creatinine (0.7 - 1.2 mg/dL) 0.9 Estimated GFR (>60 ml/min) > 60 Glucose (65 - 99 mg/dL) 223 H Calcium (8.4 - 10.2 mg/dL) 8.3 L Phosphorus (2.5 - 4.5 mg/dL) 2.8 Magnesium (1.6 - 2.3 mg/dL) 2.0 Total Bilirubin (0.2 - 1.3 mg/dL) 0.3 AST (17 - 59 U/L) 43 ALT (21 - 72 U/L) 72 Albumin (3.5 - 5.0 g/dL) 2.5 L Hematology CBC w Diff NO MAN DIFF REQ WBC (4.8 - 10.8 /CUMM) 5.8 RBC (4.70 - 6.10 /CUMM) 4.09 L Hgb (14.0 - 18.0 G/DL) 12.7 L Hct (42 - 52 %) 37.9 L MCV (80.0 - 94.0 FL) 92.7 MCH (27.0 - 31.0 PG) 31.2 H RDW (11.5 - 14.5 %) 13.3 Plt Count (130 - 400 /CUMM) 92 L MPV (7.4 - 10.4 FL) 8.9 Gran % (42.2 - 75.2 %) 61.8 Lymphocytes % (20.5 - 51.1 %) 32.4 Monocytes % (1.7 - 9.3 %) 4.2 Eosinophils % (0 - 5 %) 1.3 Basophils % (0.0 - 2.0 %) 0.3 Absolute Granulocytes (1.4 - 6.5 /CUMM) 3.6 Absolute Lymphocytes (1.2 - 3.4 /CUMM) 1.9 Absolute Monocytes (0.10 - 0.60 /CUMM) 0.2 Absolute Eosinophils (0.0 - 0.7 /CUMM) 0.1 Absolute Basophils (0.0 - 0.2 /CUMM) 0 PUBS MCHC (33.0 - 37.0 G/DL) 33.6 Last 24 Hours of Marck Results: Blood cultures 2 February 05 positive for Enterococcus Blood cultures 2 February 06 negative so far Urine culture February 05 2 negative Diagnostic Data Recent Imaging Findings: Chest x-ray February [address] CT of the abdomen and pelvis with and without IV contrast February 05 reveals a mildly distended gallbladder, with no pericholecystic fluid or wall edema, but with high density linear material within the gallbladder; numerous punctate densities throughout the pancreas, with a cystic lesion within the tail of the pancreas; bilateral perinephric stranding, with bilateral punctate densities within the collecting systems of the kidneys; significantly enlarged prostate Assessment/Plan Assessment/Plan Impression: This is a 77-year-old man with a history of hypertension and BPH, recently treated for a URI and a Maryjo balanitis, admitted on February 05 with 1-2 week history of decreased oral intake, fatigue, urinary frequency and a more recent onset of suprapubic discomfort and urinary incontinence, found to be in a hyperglycemic hyperosmolar state, with renal insufficiency, with no fever and only mild leukocytosis, but with blood cultures 2 positive for Enterococcus. The most likely source of his sepsis is urologic, either the prostate or the kidney, with the CT scan revealing a significantly enlarged prostate, bilateral perinephric stranding and kidney stones and with urinary symptoms, though his urine cultures are negative. An intra-abdominal process is possible, either biliary, with the distended gallbladder, or the pancreas, given the abnormalities seen on CT scan, though he has no GI symptoms. This could be further evaluated, for example with a right upper quadrant ultrasound and MRCP, but would defer until he is evaluated by Urology. Suggestion: 1. Urology evaluation 2. Consider further evaluation of the abdomen, for example right upper quadrant ultrasound and MRCP, but would defer until he is evaluated by Urology 3. Echocardiogram 4. Follow-up final blood cultures 5. Continue Ampicillin Consult Acknowledgment - Thank you for your consult request.
--- NOTE | 2017-02-07 09:57 | PN- Housestaff ---
Subjective Follow-up For: Hyperosmolar hyperglycemic state Urinary incontinence MARCO BPH Hypertension and Hyperlipidemia Subjective: Alert oriented 3, he is lying comfortably on bed with no signs of acute distress. pt denies any current complains. Review of Systems Constitutional: Reports: see HPI. Objective Last 24 Hrs of Vital Signs/I&O Vital Signs Date Time Temp Pulse Resp B/P B/P Pulse O2 O2 Flow FiO2 Mean Ox Delivery Rate 02/07 1459 97.9 87 20 118/56 96 02/07 0946 140/70 02/07 0946 140/70 02/07 0629 97.8 70 18 140/76 96 Room Air 02/06 2352 98.2 87 20 120/50 96 Room Air Intake & Output 02/07 1600 02/07 0800 02/07 0000 Intake Total 1425 720 655 Output Total 500 1250 1076 Balance 925 -530 -421 Intake, IV 625 600 175 Intake, Oral 800 120 480 Number 0 Bowel Movements Output, Stool 1 Output, Urine 500 1250 1075 Physical Exam General Appearance: Alert, Oriented X3, Cooperative, No Acute Distress HEENT: Atraumatic, PERRLA, EOMI, Mucous Membr. moist/pink Cardiovascular: Regular Rate, Normal S1, Normal S2, No Murmurs Lungs: Clear to Auscultation, Normal Air Movement Abdomen: Normal Bowel Sounds, Soft, No Tenderness Neurological: Normal Speech, Strength at 5/5 X4 Ext Extremities: No Clubbing, No Cyanosis, No Edema Current Medications: Current Medications Sig/Claire Start time Last Medication Dose Route Stop Time Status Admin Acetaminophen 325 MG Q6 PRN 02/05 1500 AC PO Ampicillin 2,000 MG Q8H 02/06 1800 AC 02/07 Sodium Chloride 100 ML IV 1720 Atorvastatin Calcium 5 MG 1700 02/05 1800 AC 02/07 PO 1719 Insulin Aspart 0 AT BEDTIME 02/06 2200 AC SC Insulin Aspart 0 TIDAC 02/06 0900 AC 02/07 SC 1719 Insulin Detemir 12 UNITS BID 02/07 2200 AC SC Insulin Detemir 10 UNITS BID 02/06 1000 DC 02/07 SC 0946 Lisinopril 10 MG DAILY 02/06 1429 AC 02/07 PO 0946 Morphine Sulfate 1 MG Q4 PRN 02/05 1500 AC IV Oxycodone/ 1 TAB Q6 PRN 02/05 1500 AC Acetaminophen PO Sodium Chloride 1,000 ML ONCE ONE 02/06 1745 DC 02/06 IV 02/07 0704 1930 Tamsulosin HCl 0.4 MG DAILY 02/06 1000 AC 02/07 PO 0946 Last 24 Hrs of Lab/Marck Results Last 24 Hrs of Labs/Mics: Laboratory Tests 02/07/17 0800: Anion Gap 6, Estimated GFR > 60, Glucose 223 H, Calcium 8.3 L, Phosphorus 2.8, Magnesium 2.0, Total Bilirubin 0.3, AST 43, ALT 72, Albumin 2.5 L, CBC w Diff NO MAN DIFF REQ, RBC 4.09 L, MCV 92.7, MCH 31.2 H, RDW 13.3, MPV 8.9, Gran % 61.8, Lymphocytes % 32.4, Monocytes % 4.2, Eosinophils % 1.3, Basophils % 0.3, Absolute Granulocytes 3.6, Absolute Lymphocytes 1.9, Absolute Monocytes 0.2, Absolute Eosinophils 0.1, Absolute Basophils 0, PUBS MCHC 33.6 Assessment/Plan Assessment: #Hyperosmolar hyperglycemic state This morning blood glucose is 262, anion gap is 6, K is 4. * cont' Accu-Chek 3 times a day before meals and at bedtime * Cont' consistent carbohydrate 2 diet. * We will increase Levemir to 12 units twice a day * We adjusted sliding-scale NovoLog as per Endo rec(see order) #Hypertension and Hyperlipidemia * Cont' lisinopril 10 mg daily * Continue atorvastatin 5 mg daily #MARCO Cr is 0.9 it was 1.5 on admission. Mostly 2/2 dehydration. Resolved. #BPH * Cont' Flomax 0.4 mg daily * Love catheter was DCed * strate cath PRN #Positive Blood Cxs Pt was admitted with one week Hx of urinary frequency, suprapubic discomfort and urinary incontinence. Pt has Hx of fungal infection prior to admission. Was found to have blood cultures 2 positive for Enterococcus most likely 2/[address] scan revealing a significantly enlarged prostate, bilateral perinephric stranding and kidney stones. urine cultures are negative. * F/U final blood Cxs * Cont' Ampicillin 2000 IV Q8. * Urology was consulted, we will follow there rec. * Echocardiogram as per ID Diet consistent carbohydrate 2 DVT prophylaxis heparin subcutaneous Code full Problem List: 1. BPH (benign prostatic hyperplasia) 2. Diabetic hyperosmolar non-ketotic state Pain Ratin Pain Location: na Pain Goal: Remain pain free Pain Plan: See A&P Tomorrow's Labs & Rationales: CBC and bep -Blood culture, one tube grew gram-positive cocci mostly contamination -We'll repeat blood culture Diet consistent carbohydrate to DVT prophylaxis heparin subcutaneous Code full Consultation endocrinology and nutrition Love catheter Day#2 Problem List: 1. BPH (benign prostatic hyperplasia) 2. Diabetic hyperosmolar non-ketotic state Pain Ratin Pain Location: na Pain Goal: Remain pain free Pain Plan: See A&P Tomorrow's Labs & Rationales: CBC and bep
[2017-02-07 14:59] VITALS: BP 118/56
--- NOTE | 2017-02-07 18:06 | NUR ---
PT'S ORTA REMOVED AT 10 AM THIS MORNING. DTV BY THIS TIME, UNABLE TO VOID, STATES URGE TO VOID BUT UNABLE TO PASS URINE. BLADDER SCANNED FOR 377 CC URINE. CALL PLACED TO PHOTOGRAPH DEVELOPER FOR STRAIGHT CATH PROTOCOL.
--- NOTE | 2017-02-07 21:57 | NUR ---
Late entry: Call placed to manufacturing intern for straight cath protocol following pt unable to void s/p removal of zelaya from this morning. Straight cathed at 1900 for 525 cc clear yellow urine, pt stated some discomfort/pain upon catheter insertion, no resistance met during insertion. Scant amt blood to tip of penis following removal of straight cath. Call placed to manufacturing intern to update, and ? need of urology consult. Will continue to monitor.
[2017-02-07 22:56] VITALS: BP 122/60
--- NOTE | 2017-02-07 23:03 | NUR ---
BLADDER SCANNED AT THIS TIME FOR 534. STRAIGHT CATHED FOR 700ML CLEAR YELLOW URINE. WILL CONTINUE SCP EVERY 4 HOURS AT THIS TIME.
[2017-02-08 06:53] VITALS: BP 120/60
--- NOTE | 2017-02-08 07:22 | PN- Housestaff ---
Subjective Follow-up For: 1. Hyperosmolar hyperglycemic state 2. Sepsis 2/2 urilogical origin 3. Urinary incontinence 4. MARCO 5. BPH Subjective: The patient feels relatively better. Denies any chest pain, fever, chills, N/V/D Has urinary incontinence and was on zelaya, now straight cath protocol, wanted to see Dr. Santos Review of Systems Constitutional: Reports: see HPI. Cardiovascular: Reports: no symptoms. Respiratory: Reports: no symptoms. Gastrointestinal: Reports: no symptoms. Genitourinary: Reports: see HPI. Musculoskeletal: Reports: no symptoms. Skin: Reports: no symptoms. Objective Last 24 Hrs of Vital Signs/I&O Vital Signs Date Time Temp Pulse Resp B/P B/P Pulse O2 O2 Flow FiO2 Mean Ox Delivery Rate 02/08 1427 97.7 85 20 122/60 96 Room Air 02/08 0830 88 120/70 02/08 0830 88 120/70 02/08 0653 98.0 84 18 120/60 96 02/07 2256 97.8 77 20 122/60 94 Room Air Intake & Output 02/08 1600 02/08 0800 02/08 0000 Intake Total 700 320 200 Output Total 400 900 525 Balance 300 -580 -325 Intake, IV 100 120 200 Intake, Oral 600 200 Output, Urine 400 900 525 Physical Exam General Appearance: Alert, Oriented X3, Cooperative, No Acute Distress Cardiovascular: Regular Rate, Normal S1, Normal S2, No Murmurs Lungs: Clear to Auscultation, Normal Air Movement Abdomen: Normal Bowel Sounds, Soft, No Tenderness, No Hepatospenomegaly Neurological: Normal Gait, Normal Speech, Strength at 5/5 X4 Ext, Normal Tone, Sensation Intact Extremities: No Edema, Normal Pulses Current Medications: Current Medications Sig/Claire Start time Last Medication Dose Route Stop Time Status Admin Acetaminophen 325 MG Q6 PRN 02/05 1500 AC PO Ampicillin 2,000 MG Q8H 02/06 1800 AC 02/08 Sodium Chloride 100 ML IV 1049 Atorvastatin Calcium 5 MG 1700 02/05 1800 AC 02/08 PO 1604 Insulin Aspart 0 AT BEDTIME 02/06 2200 AC 02/07 SC 2106 Insulin Aspart 0 TIDAC 02/06 0900 AC 02/08 SC 1210 Insulin Detemir 12 UNITS BID 02/07 2200 AC 02/08 SC 0828 Insulin Detemir 10 UNITS BID 02/06 1000 DC 02/07 SC 0946 Lisinopril 10 MG DAILY 02/06 1429 AC 02/08 PO 0830 Morphine Sulfate 1 MG Q4 PRN 02/05 1500 AC IV Oxycodone/ 1 TAB Q6 PRN 02/05 1500 AC Acetaminophen PO Patient Medication 1 ED .STK-MED ONE 02/08 1409 DC Teaching ED 02/08 1410 Tamsulosin HCl 0.4 MG DAILY 02/06 1000 AC 02/08 PO 0830 Last 24 Hrs of Lab/Marck Results Last 24 Hrs of Labs/Mics: Laboratory Tests 02/08/17 0620: Anion Gap 8, Estimated GFR > 60, BUN/Creatinine Ratio 17.5, CBC w Diff NO MAN DIFF REQ, RBC 3.93 L, MCV 92.4, MCH 31.3 H, RDW 13.1, MPV 8.5, Gran % 55.4, Lymphocytes % 37.4, Monocytes % 4.1, Eosinophils % 2.7, Basophils % 0.4, Absolute Granulocytes 2.7, Absolute Lymphocytes 1.8, Absolute Monocytes 0.2, Absolute Eosinophils 0.1, Absolute Basophils 0, PUBS MCHC 33.9 Assessment/Plan Assessment: Mr. Upton is a 77-year-old gentleman with past medical history of hypertension, HLD, and BPH who presented to the emergency department on 02/05/2017 complaining of urinary incontinence, polyuria and polydipsia. Was iniotially admitted to the ICU, transferred to on 02/06. Assesment and Plan 1. Hyperosmolar hyperglycemic state The patient was initially admitted to the ICU, after being stablized and transitioned to SC insulin he was transferred to on 02/06. - Finger sticks: [phone] - Dr. Monterroso on board - Will continue with the same ISS and Levemir 12 units BID 2. Sepsis Pt was admitted with one week Hx of urinary frequency, suprapubic discomfort and urinary incontinence. Pt has Hx of fungal infection prior to admission. Was found to have blood cultures 2 positive for Enterococcus most likely 2/[address] scan revealing a significantly enlarged prostate, bilateral perinephric stranding and kidney stones. Urine cultures are negative. - ID on board - WIll continue with Ampicillin per ID - Awaiting Urology input, call placed again to Dr. Santos - Awaiting ECHO - Will get RUQ US or MRCP per ID pending urology evaluation - Continue with straight cath protocol Q6 for now 3. MARCO - Cr was1.5 on admission, likely 2/2 dehydration and post obstructive. Now resolved with Cr 0.8 4. BPH - Cont' Flomax 0.4 mg daily - Zelaya catheter was DCed - Straight catch Q6 - Awaiting Urology consult. A consult was placed over the weekend and I called Dr. Santos's answering service again today. Awaiting call back. 5. Hypertension and Hyperlipidemia - Continue lisinopril 10 mg daily - Continue atorvastatin 5 mg daily 6. Diet: Diet consistent carbohydrate 2 7. DVT prophylaxis heparin subcutaneous 8. FULL CODE Problem List: 1. Diabetic hyperosmolar non-ketotic state 2. BPH (benign prostatic hyperplasia) 3. Sepsis Pain Ratin Pain Location: none Pain Goal: Remain pain free Pain Plan: PRN Tylenol and Percocet Tomorrow's Labs & Rationales: CBC - h/h monitoring DVT/Prophylaxis: pharmacological Discharge Plan Stable for Discharge? No
--- NOTE | 2017-02-08 08:13 | PN- Diabetes ---
Assessment/Plan Assessment: The patient feels better. The Love catheter has been removed and he is on straight cath protocol. He states he is still having trouble passing his urine. He is on Flomax. He has been placed on Unasyn. The CT scan of abdomen and pelvis shows evidence of chronic pancreatitis. With regard to his blood sugars patient is presently on 12 units of Levemir twice a day. His sliding scale NovoLog was adjusted yesterday. There are now two blood cultures positive for enterococcus, sensitivities to follow. He has been seen by Jabier Dominique MD an infectious disease marine engineering consultant. Plan: Suggest continue the present insulin regimen. Sugars are starting to come down. Subjective Subjective: Feels okay Review of Systems Constitutional: Denies: chills, fever. Cardiovascular: Denies: chest pain. Respiratory: Denies: cough, short of breath. Gastrointestinal: Denies: abdominal pain, nausea, changes in stool. Genitourinary: Reports: see HPI. Skin: Reports: no symptoms. Objective Last 24 Hrs of Vital Signs/I&O Vital Signs Date Time Temp Pulse Resp B/P B/P Pulse O2 O2 Flow FiO2 Mean Ox Delivery Rate 02/08 0653 98.0 84 18 120/60 96 02/07 2256 97.8 77 20 122/60 94 Room Air 02/07 1459 97.9 87 20 118/56 96 02/07 0946 140/70 02/07 0946 140/70 Intake & Output 02/08 1600 02/08 0800 02/08 0000 Intake Total 320 200 Output Total 900 525 Balance -580 -325 Intake, IV 120 200 Intake, Oral 200 Output, Urine 900 525 Vital Signs Date Time Temp Pulse Resp B/P B/P Pulse O2 O2 Flow FiO2 Mean Ox Delivery Rate 02/08 0653 98.0 84 18 120/60 96 02/07 2256 97.8 77 20 122/60 94 Room Air 02/07 1459 97.9 87 20 118/56 96 02/07 0946 140/70 02/07 0946 140/70 Intake & Output 02/08 1600 02/08 0800 02/08 0000 Intake Total 320 200 Output Total 900 525 Balance -580 -325 Intake, IV 120 200 Intake, Oral 200 Output, Urine 900 525 Physical Exam General Appearance: alert, awake, anxious Head: normal appearance Neck: normal inspection Cardiovascular: regular rate/rhythm Abdomen: normal bowel sounds Extremities: normal inspection Current Medications: Current Medications Sig/Claire Start time Last Medication Dose Route Stop Time Status Admin Acetaminophen 325 MG Q6 PRN 02/05 1500 AC PO Ampicillin 2,000 MG Q8H 02/06 1800 AC 02/08 Sodium Chloride 100 ML IV 0227 Atorvastatin Calcium 5 MG 1700 02/05 1800 AC 02/07 PO 1719 Insulin Aspart 0 AT BEDTIME 02/06 2200 AC 02/07 SC 210 Insulin Aspart 0 TIDAC 02/06 0900 AC 02/07 SC 1719 Insulin Detemir 12 UNITS BID 02/07 2200 AC 02/07 SC 2106 Insulin Detemir 10 UNITS BID 02/06 1000 DC 02/07 SC 0946 Lisinopril 10 MG DAILY 02/06 1429 AC 02/07 PO 0946 Morphine Sulfate 1 MG Q4 PRN 02/05 1500 AC IV Oxycodone/ 1 TAB Q6 PRN 02/05 1500 AC Acetaminophen PO Tamsulosin HCl 0.4 MG DAILY 02/06 1000 AC 02/07 PO 0946 Findings Pertinent Lab/Marck Results: Laboratory Tests 02/08 0620 Chemistry Sodium Pending Potassium Pending Chloride Pending Carbon Dioxide Pending Anion Gap Pending BUN Pending Creatinine Pending BUN/Creatinine Ratio Pending Hematology CBC w Diff Pending WBC Pending RBC Pending Hgb Pending Hct Pending MCV Pending MCH Pending RDW Pending Plt Count Pending MPV Pending PUBS MCHC Pending
[2017-02-08 08:16] LABS: ABSOLUTE BASOPHIL COUNT 0 /CUMM (0.0-0.2); ABSOLUTE EOSINOPHIL COUNT 0.1 /CUMM (0.0-0.7); ABSOLUTE GRANULOCYTE CT 2.7 /CUMM (1.4-6.5); ABSOLUTE LYMPH COUNT 1.8 /CUMM (1.2-3.4); ABSOLUTE MONOCYTE COUNT 0.2 /CUMM (0.10-0.60); BASOPHIL % 0.4 % (0.0-2.0); EOSINOPHIL % 2.7 % (0-5); GRANULOCYTE % 55.4 % (42.2-75.2); HEMATOCRIT 36.3 % (42-52); MEAN CORPUSCULAR HGB 31.3 PG (27.0-31.0); MEAN CORPUSCULAR HGB CONC 33.9 G/DL (33.0-37.0); MEAN CORPUSCULAR VOLUME 92.4 FL (80.0-94.0); MEAN PLATELET VOLUME 8.5 FL (7.4-10.4); PLATELET COUNT 90 /CUMM (130-400); RBC DISTRIBUTION WIDTH 13.1 % (11.5-14.5); RED BLOOD CELL CT 3.93 /CUMM (4.70-6.10); WHITE BLOOD CELL COUNT 4.9 /CUMM (4.8-10.8)
--- NOTE | 2017-02-08 13:19 | PN- Infect Dx ---
Subjective Subjective: Afebrile. He complains of fatigue but has no pain. He has required straight catheterization per protocol since his Love was removed yesterday. Objective Last 24 Hrs of Vital Signs/I&O Vital Signs Date Time Temp Pulse Resp B/P B/P Pulse O2 O2 Flow FiO2 Mean Ox Delivery Rate 02/08 0830 88 120/70 02/08 0830 88 120/70 02/08 0653 98.0 84 18 120/60 96 02/07 2256 97.8 77 20 122/60 94 Room Air 02/07 1459 97.9 87 20 118/56 96 Intake & Output 02/08 1600 02/08 0800 02/08 0000 Intake Total 320 200 Output Total 900 525 Balance -580 -325 Intake, IV 120 200 Intake, Oral 200 Output, Urine 900 525 Physical Exam Other Physical Findings: He appears comfortable in no acute distress Lungs are clear Heart regular rhythm with no murmur Abdomen is distended, mild suprapubic tenderness, with positive bowel sounds Back no CVA tenderness Extremities no cyanosis, clubbing or edema Results Last 24 Hours of Lab Results: Laboratory Tests 02/08 0620 Chemistry Sodium (137 - 145 mmol/L) 140 Potassium (3.5 - 5.1 mmol/L) 3.6 Chloride (98 - 107 mmol/L) 108 H Carbon Dioxide (22 - 30 mmol/L) 24 Anion Gap (5 - 16) 8 BUN (9 - 20 mg/dL) 14 Creatinine (0.7 - 1.2 mg/dL) 0.8 Estimated GFR (>60 ml/min) > 60 BUN/Creatinine Ratio (7 - 25 %) 17.5 Hematology CBC w Diff NO MAN DIFF REQ WBC (4.8 - 10.8 /CUMM) 4.9 RBC (4.70 - 6.10 /CUMM) 3.93 L Hgb (14.0 - 18.0 G/DL) 12.3 L Hct (42 - 52 %) 36.3 L MCV (80.0 - 94.0 FL) 92.4 MCH (27.0 - 31.0 PG) 31.3 H RDW (11.5 - 14.5 %) 13.1 Plt Count (130 - 400 /CUMM) 90 L MPV (7.4 - 10.4 FL) 8.5 Gran % (42.2 - 75.2 %) 55.4 Lymphocytes % (20.5 - 51.1 %) 37.4 Monocytes % (1.7 - 9.3 %) 4.1 Eosinophils % (0 - 5 %) 2.7 Basophils % (0.0 - 2.0 %) 0.4 Absolute Granulocytes (1.4 - 6.5 /CUMM) 2.7 Absolute Lymphocytes (1.2 - 3.4 /CUMM) 1.8 Absolute Monocytes (0.10 - 0.60 /CUMM) 0.2 Absolute Eosinophils (0.0 - 0.7 /CUMM) 0.1 Absolute Basophils (0.0 - 0.2 /CUMM) 0 PUBS MCHC (33.0 - 37.0 G/DL) 33.9 Last 24 Hours of Marck Results: Blood cultures February 05 positive for Enterococcus sensitive to Ampicillin Blood cultures February 06 negative Assessment/Plan Impression: Enterococcal sepsis most likely of urologic origin, with his urinary complaints of frequency, incontinence and retention, superimposed on the background of BPH and nephrolithiasis, though his urine cultures were negative. A GI source, for example secondary to a biliary or pancreatic process, is also possible, given his CT findings, though he has no GI symptoms. He remains afebrile with white blood cell count normal on Ampicillin Day 2, with repeat blood cultures, sent prior to antibiotics, remaining negative. Suggestion: 1. Await Urology evaluation 2. Consider further evaluation of the abdomen, for example right upper quadrant ultrasound and MRCP, as suggested by Radiology, but would defer until he is evaluated by Urology 3. Echocardiogram 4. Continue Ampicillin
[2017-02-08 14:27] VITALS: BP 122/60
--- NOTE | 2017-02-08 20:46 | ECHOCARDIOGRAM REPORT ---
AAKASH CHENEY Age: 77 : 1940 Gender: M Exam Date: 02/08/2017 18:59 Exam Location: [address] [place] [address] Ht (in): 69 Wt (lb): 220 BSA: 2.24 BP: 120 / 60 Ordering Physician: DANA ADEN MD Referring Physician: DANA ADEN MD Technologist: Bibi Najera DAGMAR Room Number: [id number] Indications: VENTRICULAR TACHYCARDIA Rhythm: Sinus Technical Quality: Fair FINDINGS Left Ventricle Normal size left ventricle. No obvious regional wall motion abnormalities. Normal left ventricular ejection fraction estimated at 55-60%. Right Ventricle Right ventricle not well visualized, grossly normal. Right Atrium Normal right atrial size. Left Atrium Mild left atrial dilatation. Mitral Valve Mitral valve thickened. Trace mitral regurgitation. Aortic Valve Trileaflet aortic valve. Diffuse thickening (sclerosis) of the aortic valve cusps without reduced excursion. No aortic stenosis. No aortic regurgitation. Tricuspid Valve Tricuspid valve not well visualized. Trace to mild tricuspid regurgitation. Right ventricular systolic pressure estimated at 30 mmHg. Pulmonic Valve Pulmonic valve not well visualized, grossly normal. Trace to mild pulmonic regurgitation. Pericardium No pericardial effusion. Great Vessels Aortic root and proximal ascending aorta not well visualized, grossly normal. CONCLUSIONS 1. This was a technically difficult examination. 2. Aortic sclerosis is present with no valvular stenosis or insufficiency. 3. Mitral leaflet thickening is present with minimal mitral insufficiency. 4. There is no pericardial fluid detected. 5. The left ventricular chamber size and systolic function appear normal. 6. The right heart structures were not optimally visualized. Minimal to mild tricuspid and pulmonic insufficiency are present with no evidence of pulmonary hypertension. Concha Diaz M.D. (Electronically Signed) Final Date: 08 February 2017 20:46 MEASUREMENTS (Male / Female) Normal Values 2D ECHO LV Diastolic Diameter PLAX 2.9 cm 4.2 - 5.9 / 3.9 - 5.3 cm LV Systolic Diameter PLAX 1.8 cm 2.1 - 4.0 cm LV Fractional Shortening PLAX 37.9 % 25 - 46 % LV Ejection Fraction 2D Teich 69.8 % IVS Diastolic Thickness 1.1 cm LVPW Diastolic Thickness 1.0 cm LV Relative Wall Thickness 0.7 RV Internal Dim ED PLAX 2.6 cm 1.9 - 3.8 cm LVOT Diameter 2.1 cm Aortic Root Diameter 2.3 cm LA Systolic Diameter LX 4.5 cm 3.0 - 4.0 / 2.7 - 3.8 cm LA Volume 21.0 cm 18 - 58 / 22 - 52 cm Ascending Aorta Diameter 3.2 cm DOPPLER AV Peak Velocity 159.0 cm/s AV Peak Gradient 10.1 mmHg AV Mean Velocity 99.5 cm/s AV Mean Gradient 5.0 mmHg AV Velocity Time Integral 25.0 cm LVOT Peak Velocity 140.0 cm/s LVOT Peak Gradient 7.8 mmHg LVOT Mean Velocity 75.4 cm/s LVOT Mean Gradient 3.0 mmHg LVOT Velocity Time Integral 19.9 cm LVOT Stroke Volume 68.9 cm AV Area Cont Eq vti 2.8 cm AV Area Cont Eq pk 3.0 cm MV Peak Velocity 104.0 cm/s MV Peak Gradient 4.3 mmHg MV Mean Velocity 53.5 cm/s MV Mean Gradient 1.0 mmHg Mitral E Point Velocity 72.1 cm/s Mitral A Point Velocity 90.3 cm/s Mitral E to A Ratio 0.8 MV PHT Velocity 85.5 cm/s MV Deceleration [place] 235.0 cm/s MV Pressure Half Time 109.1 ms MV Area PHT 2.0 cm MV Deceleration Time 269.0 ms TR Peak Velocity 231.0 cm/s TR Peak Gradient 21.3 mmHg Right Atrial Pressure 5.0 mmHg Pulmonary Artery Systolic Pressu 26.3 mmHg Right Ventricular Systolic Press 26.3 mmHg PV Peak Velocity 142.0 cm/s PV Peak Gradient 8.1 mmHg PV Mean Velocity 87.0 cm/s PV Mean Gradient 4.0 mmHg PV Velocity Time Integral 22.2 cm LV E' Lateral Velocity 9.8 cm/s Mitral E to LV E' Lateral Ratio 7.4 LV E' Septal Velocity 5.3 cm/s Mitral E to LV E' Septal Ratio 13.7
--- NOTE | 2017-02-08 21:03 | PN- Att Addend ---
Attending Addendum Attending Brief Note Events over the weekend noted him a patient overall improved his out of the intensive care unit, his a febrile his vital signs are stable. His Lvoe was removed and he has been having trouble urinating needed frequent rate catheterizations with a urology consultation was requested and will be seen by Dr. Santos who knows the patient for his BPH urine 2 blood cultures at the first time showed enterococcus with the follow-up blood cultures the next day were negative. It was thought that the sepsis was of urological origin. The bacteria is sensitive to ampicillin. Continue antibiotic. Appreciate infectious diseases input and recommendations is appreciated medical office secretary input regarding the diabetes management Intake & Output 02/08 1600 02/08 0400 02/07 1600 02/07 0400 02/06 1600 02/06 0400 Intake Total 1319 925 2229 655 2430 1587 Output Total 4841 474 6051 4025 844 9472 Balance -280 -325 395 -421 1670 -213 Intake, IV 394 739 4160 175 1550 1547 Intake, Oral 800 920 480 880 40 Number 0 1 0 Bowel Movements Output, Stool 1 Output, Urine 4161 103 4581 1147 046 3832 Patient 220 lb 220 lb Weight Current Medications Sig/Claire Start time Last Medication Dose Route Stop Time Status Admin Acetaminophen 325 MG Q6 PRN 02/05 1500 AC PO Ampicillin 2,000 MG Q8H 02/06 1800 AC 02/08 Sodium Chloride 100 ML IV 1814 Atorvastatin Calcium 5 MG 1700 02/05 1800 AC 02/08 PO 1604 Insulin Aspart 0 AT BEDTIME 02/06 2200 AC 02/07 NV 2106 Insulin Aspart 0 TIDAC 02/06 0900 AC 02/08 NV 1701 Insulin Detemir 12 UNITS BID 02/07 2200 AC 02/08 SC 0828 Lisinopril 10 MG DAILY 02/06 1429 AC 02/08 PO 0830 Morphine Sulfate 1 MG Q4 PRN 02/05 1500 AC IV Oxycodone/ 1 TAB Q6 PRN 02/05 1500 AC Acetaminophen PO Patient Medication 1 ED .STK-MED ONE 02/08 1409 DC Teaching ED 02/08 1410 Tamsulosin HCl 0.4 MG DAILY 02/06 1000 AC 02/08 PO 0830 Laboratory Tests 02/08/ 0620: Anion Gap 8, Estimated GFR > 60, BUN/Creatinine Ratio 17.5, CBC w Diff NO MAN DIFF REQ, RBC 3.93 L, MCV 92.4, MCH 31.3 H, RDW 13.1, MPV 8.5, Gran % 55.4, Lymphocytes % 37.4, Monocytes % 4.1, Eosinophils % 2.7, Basophils % 0.4, Absolute Granulocytes 2.7, Absolute Lymphocytes 1.8, Absolute Monocytes 0.2, Absolute Eosinophils 0.1, Absolute Basophils 0, PUBS MCHC 33.9 02/07/17 0800: Anion Gap 6, Estimated GFR > 60, Glucose 223 H, Calcium 8.3 L, Phosphorus 2.8, Magnesium 2.0, Total Bilirubin 0.3, AST 43, ALT 72, Albumin 2.5 L, CBC w Diff NO MAN DIFF REQ, RBC 4.09 L, MCV 92.7, MCH 31.2 H, RDW 13.3, MPV 8.9, Gran % 61.8, Lymphocytes % 32.4, Monocytes % 4.2, Eosinophils % 1.3, Basophils % 0.3, Absolute Granulocytes 3.6, Absolute Lymphocytes 1.9, Absolute Monocytes 0.2, Absolute Eosinophils 0.1, Absolute Basophils 0, PUBS MCHC 33.6 02/06/17 0510: Anion Gap 8, Estimated GFR > 60, Glucose 146 H, Calcium 8.5, Phosphorus 2.9, Magnesium 2.3, Total Bilirubin 0.3, AST 25, ALT 57, Albumin 2.4 L, CBC w Diff NO MAN DIFF REQ, RBC 3.95 L, MCV 93.6, MCH 31.2 H, RDW 13.1, MPV 8.7, Gran % 74.4, Lymphocytes % 20.3 L, Monocytes % 4.7, Eosinophils % 0.6, Basophils % 0 L, Absolute Granulocytes 7.2 H, Absolute Lymphocytes 2.0, Absolute Monocytes 0.5, Absolute Eosinophils 0.1, Absolute Basophils 0, PUBS MCHC 33.3 02/06/17 0100: Anion Gap 8, Estimated GFR 58 L, Glucose 189 H, Calcium 8.9, Phosphorus 3.6, Magnesium 2.5 H, Total Bilirubin 0.3, AST 25, ALT 56, Albumin 2.8 L 02/05/17 2138: Anion Gap 8, Estimated GFR 58 L, Glucose 149 H, Calcium 9.3, Phosphorus 3.2, Magnesium 2.6 H, Total Bilirubin 0.4, AST 27, ALT 57, Albumin 3.1 L Microbiology 02/07 944 BLOOD: Blood Culture - RES 02/07 940 BLOOD: Blood Culture - RES 02/06 903 URINE ROUT: Urine Culture - CAN Cancelled: Cancelled via OE: PENDING IN LAB Microbiology Date/Time Procedure - Status Source Growth 02/07 944 Blood Culture - RES BLOOD 02/07 940 Blood Culture - RES BLOOD 02/06 903 Urine Culture - CAN URINE ROUT Cancelled: Cancelled via OE: PENDING IN LAB
--- NOTE | 2017-02-08 22:16 | NUR ---
LATE ENTRY FOR 1999: PT STRAIGHT CATHED FOR 700 ML CLEAR YELLOW URINE. AWAITING UROLOGY CONSULT- PT STILL UNABLE TO VOID ON OWN, AND REMAINS ON SCP EVERY 6 HOURS. CALL PLACED TO LOG CARRIER OPERATOR-UROLOGY CONSULT PLACED WEDNESDAY-STILL AWAITING CONSULT TO OCCUR. NO NEW ORDERS AT THIS TIME. PER LOG CARRIER OPERATOR CONSULT ORDER REMAINS ACTIVE. WILL CONTINUE TO MONTIOR
[2017-02-08 22:46] VITALS: BP 122/72
[2017-02-09 06:58] VITALS: BP 122/82
--- NOTE | 2017-02-09 07:36 | PN- Housestaff ---
Subjective Follow-up For: 1. Hyperosmolar hyperglycemic state 2. Sepsis 2/2 urilogical origin 3. Urinary incontinence 4. MARCO 5. BPH Subjective: The patient is doing a lit better, he was walking in am when I went to examine him. He denies any complains of chest pain, SOB, fever, chills, abdominal pain etc. But is unable to urinate and needs to get cathed every 6 hours which he does not like. Review of Systems Constitutional: Reports: see HPI. Cardiovascular: Reports: no symptoms. Respiratory: Reports: no symptoms. Gastrointestinal: Reports: no symptoms. Genitourinary: Reports: see HPI. Objective Last 24 Hrs of Vital Signs/I&O Vital Signs Date Time Temp Pulse Resp B/P B/P Pulse O2 O2 Flow FiO2 Mean Ox Delivery Rate 02/09 0838 78 130/80 02/09 0837 78 130/80 02/09 0658 98.5 70 16 122/82 96 Room Air 02/08 2246 98.7 71 20 122/72 95 02/08 1427 97.7 85 20 122/60 96 Room Air Intake & Output 02/09 1600 02/09 0800 02/09 0000 Intake Total 100 Output Total 800 Balance -700 Intake, IV 100 Output, Urine 800 Physical Exam General Appearance: Alert, Oriented X3, Cooperative, No Acute Distress Cardiovascular: Regular Rate, Normal S1, Normal S2, No Murmurs Lungs: Normal Air Movement Abdomen: Normal Bowel Sounds, Soft, No Tenderness, No Hepatospenomegaly Current Medications: Current Medications Sig/Claire Start time Last Medication Dose Route Stop Time Status Admin Acetaminophen 325 MG Q6 PRN 02/05 1500 AC PO Ampicillin 2,000 MG Q8H 02/06 1800 AC 02/09 Sodium Chloride 100 ML IV 1103 Atorvastatin Calcium 5 MG 1700 02/05 1800 AC 02/08 PO 1604 Insulin Aspart 0 AT BEDTIME 02/06 2200 AC 02/08 SC 2150 Insulin Aspart 0 TIDAC 02/06 0900 AC 02/09 SC 1203 Insulin Detemir 12 UNITS BID 02/07 2200 AC 02/09 SC 0836 Lisinopril 10 MG DAILY 02/06 1429 AC 02/09 PO 0838 Morphine Sulfate 1 MG Q4 PRN 02/05 1500 AC IV Oxycodone/ 1 TAB Q6 PRN 02/05 1500 AC Acetaminophen PO Patient Medication 1 ED .STK-MED ONE 02/08 1409 DC Teaching ED 02/08 1410 Potassium Chloride 20 MEQ ONCE ONE 02/09 0900 DC 02/09 PO 02/09 0901 1103 Tamsulosin HCl 0.4 MG DAILY 02/06 1000 AC 02/09 PO 0837 Last 24 Hrs of Lab/Marck Results Last 24 Hrs of Labs/Mics: Laboratory Tests 02/09/17 0630: Anion Gap 7, Estimated GFR > 60, BUN/Creatinine Ratio 20.0, CBC w Diff NO MAN DIFF REQ, RBC 3.87 L, MCV 92.5, MCH 31.4 H, RDW 13.0, MPV 8.3, Gran % 51.4, Lymphocytes % 40.9, Monocytes % 4.3, Eosinophils % 3.0, Basophils % 0.4, Absolute Granulocytes 2.5, Absolute Lymphocytes 2.0, Absolute Monocytes 0.2, Absolute Eosinophils 0.1, Absolute Basophils 0, PUBS MCHC 34.0 Microbiology 02/09 1040 URINE ROUT: Urine Culture - COLB Assessment/Plan Assessment: Mr. Upton is a 77-year-old gentleman with past medical history of hypertension, HLD, and BPH who presented to the emergency department on 02/05/2017 complaining of urinary incontinence, polyuria and polydipsia. Was iniotially admitted to the ICU, transferred to on 02/06. Assesment and Plan 1. Hyperosmolar hyperglycemic state The patient was initially admitted to the ICU, after being stablized and transitioned to SC insulin he was transferred to on 02/06. - Finger sticks: [phone] - Dr. Monterroso on board - Will continue with Levemir 12 units BID, ISS increased today 2. Sepsis Pt was admitted with one week Hx of urinary frequency, suprapubic discomfort and urinary incontinence. Pt has Hx of fungal infection prior to admission. Was found to have blood cultures 2 positive for Enterococcus most likely 2/[address] scan revealing a significantly enlarged prostate, bilateral perinephric stranding and kidney stones. Urine cultures are negative. - ID on board - WIll continue with Ampicillin per ID - A call was placed again in the morning to the aviation electronic warfare operator urologist and Dr. Santos was texted to follow up with the patient. Dr. Santos evaluated the patient now. - ECHO WNL EF 55-60% - Will get RUQ US or MRCP per ID (MRI not available today but order placed for tomorrow, US today) - Continue with straight cath protocol Q6 for now 3. MARCO - Cr was1.5 on admission, likely 2/2 dehydration and post obstructive. Now resolved with Cr 0.8 4. BPH - Continue Flomax 0.4 mg daily - Love catheter was DCed - Straight catch Q6 - possible TURP on February 11 5. Hypertension and Hyperlipidemia - Continue lisinopril 10 mg daily - Continue atorvastatin 5 mg daily 6. Diet: Diet consistent carbohydrate 2 7. DVT prophylaxis heparin subcutaneous 8. FULL CODE Problem List: 1. Sepsis 2. BPH (benign prostatic hyperplasia) 3. Diabetic hyperosmolar non-ketotic state Pain Ratin Pain Location: None Pain Goal: Remain pain free Pain Plan: PRN Tylenol and Percocet Tomorrow's Labs & Rationales: Not needed DVT/Prophylaxis: pharmacological Consulting Request: 1 Consulting Specialty: Infectious Disease Consulting Physician: Dr. Garrett Reason for Consult: Sepsis 2/2 possible UTI Consulting Request: 2 Consulting Specialty: Urology Consulting Physician: Dr. Santos Reason for Consult: BPH Consulting Request: 3 Consulting Specialty: Endocrinology Consulting Physician: Dr. Monterroso Reason for Consult: Hyperosmolar coma Discharge Plan Discharge Disposition: home Stable for Discharge? No
--- NOTE | 2017-02-09 07:40 | PN- Diabetes ---
Assessment/Plan Assessment: The patient feels better. The Love catheter has been removed and he is on straight cath protocol. He states he is still having trouble passing his urine. He is on Flomax. Requiring straight cath every 6 hours. Urology has not yet seen him. He has been placed on Unasyn for enterococcus sensitive to ampicillin. He is to have an echocardiogram done.. The CT scan of abdomen and pelvis shows evidence of chronic pancreatitis which could contribute to the onset of his diabetes.. With regard to his blood sugars patient is presently on 12 units of Levemir twice a day and sliding scale NovoLog. His blood sugar today is down to 187 before breakfast. Plan: The patient's fasting blood sugars have come down. Later in the day yesterday the blood sugar were still high. Suggest increase the patient's NovoLog before meals. NovoLog sliding scale before meals should be 80-150 give 4 units NovoLog , 151-200 give 6 units NovoLog, 201-250 give 8 units NovoLog, 251-300 give 9 units NovoLog, 301-350 give 10 units NovoLog, 351-400 give 11 units NovoLog. The bedtime sliding-scale NovoLog can stay the same. Subjective Subjective: Wants to go home Review of Systems Constitutional: Denies: chills, fever. Cardiovascular: Denies: chest pain. Respiratory: Denies: cough, short of breath. Genitourinary: Reports: urgency. Skin: Reports: no symptoms. Objective Last 24 Hrs of Vital Signs/I&O Vital Signs Date Time Temp Pulse Resp B/P B/P Pulse O2 O2 Flow FiO2 Mean Ox Delivery Rate 02/09 0658 98.5 70 16 12282 96 Room Air 02/08 2246 98.7 71 20 122/72 95 02/08 1427 97.7 85 20 122/60 96 Room Air 02/08 0830 88 120/70 02/08 0830 88 120/70 Intake & Output 02/09 0800 02/09 0000 02/08 1600 Intake Total 100 700 Output Total 800 400 Balance -700 300 Intake, IV 100 100 Intake, Oral 600 Output, Urine 800 400 Vital Signs Date Time Temp Pulse Resp B/P B/P Pulse O2 O2 Flow FiO2 Mean Ox Delivery Rate 02/09 0658 98.5 70 16 122/82 96 Room Air 02/086 98.7 71 20 122/72 95 02/08 1427 97.7 85 20 122/60 96 Room Air 02/08 0830 88 120/70 02/08 0830 88 120/70 Intake & Output 02/09 0800 02/09 0000 02/08 1600 Intake Total 100 700 Output Total 800 400 Balance -700 300 Intake, IV 100 100 Intake, Oral 600 Output, Urine 800 400 Physical Exam General Appearance: alert, awake, comfortable Head: normal appearance Neck: normal inspection Respiratory: normal breath sounds Cardiovascular: regular rate/rhythm Extremities: normal inspection Current Medications: Current Medications Sig/Claire Start time Last Medication Dose Route Stop Time Status Admin Acetaminophen 325 MG Q6 PRN 02/05 1500 AC PO Ampicillin 2,000 MG Q8H 02/06 1800 AC 02/09 Sodium Chloride 100 ML IV 0229 Atorvastatin Calcium 5 MG 1700 02/05 1800 AC 02/08 PO 1604 Insulin Aspart 0 AT BEDTIME 02/06 2200 AC 02/08 SC 2150 Insulin Aspart 0 TIDAC 02/06 0900 AC 02/08 SC 1701 Insulin Detemir 12 UNITS BID 02/07 2200 AC 02/08 SC 2151 Lisinopril 10 MG DAILY 02/06 1429 AC 02/08 PO 0830 Morphine Sulfate 1 MG Q4 PRN 02/05 1500 AC IV Oxycodone/ 1 TAB Q6 PRN 02/05 1500 AC Acetaminophen PO Patient Medication 1 ED .STK-MED ONE 02/08 1409 RI Teaching ED 02/08 1410 Tamsulosin HCl 0.4 MG DAILY 02/06 1000 AC 02/08 PO 0830
[2017-02-09 08:06] LABS: ABSOLUTE BASOPHIL COUNT 0 /CUMM (0.0-0.2); ABSOLUTE EOSINOPHIL COUNT 0.1 /CUMM (0.0-0.7); ABSOLUTE GRANULOCYTE CT 2.5 /CUMM (1.4-6.5); ABSOLUTE MONOCYTE COUNT 0.2 /CUMM (0.10-0.60); BASOPHIL % 0.4 % (0.0-2.0); GRANULOCYTE % 51.4 % (42.2-75.2); HEMATOCRIT 35.8 % (42-52); MEAN CORPUSCULAR HGB 31.4 PG (27.0-31.0); MEAN CORPUSCULAR VOLUME 92.5 FL (80.0-94.0); MEAN PLATELET VOLUME 8.3 FL (7.4-10.4); PLATELET COUNT 86 /CUMM (130-400); RED BLOOD CELL CT 3.87 /CUMM (4.70-6.10); WHITE BLOOD CELL COUNT 4.8 /CUMM (4.8-10.8)
--- NOTE | 2017-02-09 11:43 | PN- Infect Dx ---
Subjective Subjective: Afebrile. He feels better with no specific complaints at this time. Objective Last 24 Hrs of Vital Signs/I&O Vital Signs Date Time Temp Pulse Resp B/P B/P Pulse O2 O2 Flow FiO2 Mean Ox Delivery Rate 02/09 0838 78 130/80 02/09 0837 78 130/80 02/09 0658 98.5 70 16 122/82 96 Room Air 02/08 2246 98.7 71 20 122/72 95 02/08 1427 97.7 85 20 122/60 96 Room Air Intake & Output 02/09 1600 02/09 0800 02/09 0000 Intake Total 100 Output Total 800 Balance -700 Intake, IV 100 Output, Urine 800 Physical Exam Other Physical Findings: He appears comfortable in no acute distress Lungs are clear Heart regular rhythm with no murmur Abdomen is mildly distended, nontender with positive bowel sounds Extremities no cyanosis, clubbing or edema Love catheter has been placed Results Last 24 Hours of Lab Results: Laboratory Tests 02/09 06 Chemistry Sodium (137 - 145 mmol/L) 138 Potassium (3.5 - 5.1 mmol/L) 3.7 Chloride (98 - 107 mmol/L) 108 H Carbon Dioxide (22 - 30 mmol/L) 23 Anion Gap (5 - 16) 7 BUN (9 - 20 mg/dL) 16 Creatinine (0.7 - 1.2 mg/dL) 0.8 Estimated GFR (>60 ml/min) > 60 BUN/Creatinine Ratio (7 - 25 %) 20.0 Hematology CBC w Diff NO MAN DIFF REQ WBC (4.8 - 10.8 /CUMM) 4.8 RBC (4.70 - 6.10 /CUMM) 3.87 L Hgb (14.0 - 18.0 G/DL) 12.1 L Hct (42 - 52 %) 35.8 L MCV (80.0 - 94.0 FL) 92.5 MCH (27.0 - 31.0 PG) 31.4 H RDW (11.5 - 14.5 %) 13.0 Plt Count (130 - 400 /CUMM) 86 L MPV (7.4 - 10.4 FL) 8.3 Gran % (42.2 - 75.2 %) 51.4 Lymphocytes % (20.5 - 51.1 %) 40.9 Monocytes % (1.7 - 9.3 %) 4.3 Eosinophils % (0 - 5 %) 3.0 Basophils % (0.0 - 2.0 %) 0.4 Absolute Granulocytes (1.4 - 6.5 /CUMM) 2.5 Absolute Lymphocytes (1.2 - 3.4 /CUMM) 2.0 Absolute Monocytes (0.10 - 0.60 /CUMM) 0.2 Absolute Eosinophils (0.0 - 0.7 /CUMM) 0.1 Absolute Basophils (0.0 - 0.2 /CUMM) 0 PUBS MCHC (33.0 - 37.0 G/DL) 34.0 Last 24 Hours of Marck Results: Blood cultures 2 February 06 remain negative Recent Imaging Studies: Echocardiogram February 08, felt to be a technically difficult exam, revealed aortic sclerosis, with no valvular stenosis or insufficiency, minimal mitral insufficiency and minimal to mild tricuspid and pulmonic insufficiency Assessment/Plan Impression: Stable with temperatures and white blood cell count remaining normal on Ampicillin Day 3 of treatment for Enterococcal bacteremia, felt to be of urologic origin, with his urinary complaints of frequency, incontinence and retention, superimposed on BPH and nephrolithiasis, though his urine cultures were negative. He has been evaluated by Urology, with plans for a TURP on February 11, with a Love catheter placed by Urology. A GI source, for example secondary to a biliary or pancreatic process, is also possible, given his CT findings, though he has no GI symptoms. His repeat blood cultures, sent prior to antibiotics, remain negative, suggesting the bacteremia was transient; therefore further evaluation, for example to rule out endocarditis, should not be necessary. Suggestion: 1. Await possible TURP on February 11 2. Consider further evaluation of the abdomen, including right upper quadrant ultrasound and MRCP, per Radiology recommendations on the CT report 3. Continue Ampicillin
[2017-02-09 15:04] VITALS: BP 138/68
--- NOTE | 2017-02-09 15:51 | Transfer of Care Summary ---
Hospital Course Course Hospital Course: Patient is a 77-year-old male with past medical history of hypertension, hyperlipidemia, BPH who presented to the ED with a chief complaint of weakness, malaise, poor by mouth intake, polyuria ,polydipsia for the past 1 week. Patient reports that about a month back he had some upper respiratory tract infection and he was treated with by mouth cephalexin and by mouth prednisone for [address] Tolliver. At the same time he developed a fungal infection on his penis for which he was started on fluconazole and finasteride by Dr. Santos. For the past 1 week he has been feeling very weak and tired with decreased appetite. He was not taking any solid food, just drinking juices as he was very thirsty. He had increased urinary frequency and urgency and remembers going to the bathroom every 15 minutes. Symptoms worsened to the point that he became incontinent of urine and continues to be the same. He presumed everything was secondary to the new medications started by Dr. Santos and therefore he stopped taking them. Denied any fevers, chills, nausea, vomiting, chest pain, shortness of breath but complained of increased suprapubic discomfort which is worse today. Patient has no history of diabetes and has never had similar episodes in the past. As per his sister he had recent blood work at Dr. Tolliver's office showed normal sugar numbers. No family history of diabetes. At baseline, the patient is very active, drinks a glass of wine per day, does not smoke or use drugs. In the ED , pertinent labs showed white count of 12.4, H&H of 15/47.2, sodium 132, potassium 6.7, chloride 91, anion gap of 17, BU and 44, creatinine 1.8( normal baseline in the system), serum glucose 1146, hemoglobin A1c 12.2, serum osmolarity 355, negative troponins, normal LFTs. UA showed no infection, 15 ketones. U tox acetone positive AB.40/23/76/20 EKG sinus rhythm at 76 bpm, tall T waves in the anterolateral leads. Physical examination General : Obese, mild discomfort, awake alert and oriented 3 HEENT : PERRLA, EOMI, dry mucous membranes Chest : Clear breath sounds, no adventitious sounds CVS : Regular rhythm, S1-S2 heard, no murmurs Abdomen : Distended, suprapubic tenderness, no guarding/rigidity : Urinary incontinence , white discharge seen over the glans Extremities : No edema, Multiple small warts over bilateral feet . Assessment/Plan: 1. Hyperosmolar hyperglycemic state The patient was initially admitted to the ICU, after being stablized and transitioned to SC insulin he was transferred to on 02/06. - Finger sticks: [phone] - Dr. Monterroso on board - Will continue with Levemir 12 units BID, ISS increased today 2. Sepsis Pt was admitted with one week Hx of urinary frequency, suprapubic discomfort and urinary incontinence. Pt has Hx of fungal infection prior to admission. Was found to have blood cultures 2 positive for Enterococcus most likely 2/[address] scan revealing a significantly enlarged prostate, bilateral perinephric stranding and kidney stones. Urine cultures are negative. - ID on board - WIll continue with Ampicillin per ID - A call was placed again in the morning to the it sales consultant urologist and Dr. Santos was texted to follow up with the patient. Dr. Santos evaluated the patient now. - ECHO WNL EF 55-60% - Will get RUQ US or MRCP per ID (MRI not available today but order placed for tomorrow, US today) - Continue with straight cath protocol Q6 for now 3. MARCO - Cr was1.5 on admission, likely 2/2 dehydration and post obstructive. Now resolved with Cr 0.8 4. BPH - Continue Flomax 0.4 mg daily - Love catheter was DCed - Straight catch Q6 - possible TURP on February 11 5. Hypertension and Hyperlipidemia - Continue lisinopril 10 mg daily - Continue atorvastatin 5 mg daily 6. Diet: Diet consistent carbohydrate 2 7. DVT prophylaxis heparin subcutaneous 8. FULL CODE
[2017-02-09] MEDS ORDERED: FLOMAX0.4 M1 PO (15:55)
[2017-02-09] MEDS ORDERED: LEVEMIR100 UNIT/1 SC (15:55)
--- NOTE | 2017-02-09 15:57 | Patient Discharge Instructions ---
Discharge Instructions General Discharge Information You were seen/treated for: 1. Hyperosmolar hyperglycemic state 2. Sepsis 2/2 urilogical origin 3. Urinary incontinence 4. MARCO 5. BPH Special Instructions: 1. Please follow up with Dr. Monterroso after discharge. CALL OFFICE ON NEXT WEDNESDAY TO TOUCH BASE! 2. Please follow up with Dr. Santos after discharge 3. COntinue the new medications as prescribed 4. COntinue with your primary care physician, Dr. Tolliver after discharge AND CHECK CBC AFTER 3-4 DAYS. Diet Continue normal diet: No Recommended Diet: Diabetic, Heart Healthy Activity Full Activity/No Limits: Yes Acute Coronary Syndrome Inclusion Criteria At DC or during hospital stay patient has or had the following: ACS DIAGNOSIS No Discharge Core Measures Meds if any: Prescribed or Continued at Discharge Meds if any: NOT Prescribed or Continued at Discharge Congestive Heart Failure Inclusion Criteria At DC or during hospital stay patient has or had the following: CHF DIAGNOSIS No Discharge Core Measures Meds if any: Prescribed or Continued at Discharge Meds if any: NOT Prescribed or Continued at Discharge Cerebrovascular accident Inclusion Criteria At DC or during hospital stay patient has or had the following: CVA/TIA Diagnosis No Discharge Core Measures Meds if any: Prescribed or Continued at Discharge Meds if any: NOT Prescribed or Continued at Discharge Venous thromboembolism Inclusion Criteria VTE Diagnosis No VTE Type NONE VTE Confirmed by (Test) NONE Discharge Core Measures - Per Current guidelines, there needs to be overlap - treatment for the first 5 days of Warfarin therapy. - If discharged on Warfarin prior to 5 days of - overlap therapy, the patient will need to be - assessed for post discharge needs including - *Post discharge parental anticoagulation - *Warfarin and/or parental anticoagulation education - *Follow up date to check INR post discharge At least 5 days overlap therapy as Inpatient No Meds if any: Prescribed or Continued at Discharge Note: Overlap Therapy is Warfarin and Anticoagulant Meds if any: NOT Prescribed or Continued at Discharge
--- NOTE | 2017-02-09 19:04 | NUR ---
PT TAKEN DOWN TO US AT THIS TIME
--- NOTE | 2017-02-09 20:09 | NUR ---
PT ARRIVED TO FLOOR AT THIS TIME FROM US. PT FINGERSTICK [id number], EATING DINNER. DENIES PAIN.
--- NOTE | 2017-02-09 20:22 | ULTRASOUND REPORT ---
EXAMINATION: US ABDOMEN LIMITED CLINICAL INFORMATION: Sepsis, question biliary source. COMPARISON: CT 02/06/2017 TECHNIQUE: Real-time imaging of the right upper quadrant abdominal viscera. FINDINGS: PANCREAS: No fluid around the pancreas. The cystic lesion identified on CT is not imaged here. Liver measuring 17 cm. Prominent. Increased echogenicity. Maybe consistent with fatty change. Echogenic bile within the gallbladder. The stones identified on CT in the gallbladder neck cannot imaged here. There is no tenderness. No edema. The common duct is 5 mm within normal limits. The right kidney is 12 cm. No hydronephrosis. Cyst in the lower pole measuring 1.6 x 1.3 cm. IMPRESSION: There is some echogenic bile in the gallbladder correlating with CT. The stones seen in the region of the neck of the gallbladder on CT are not defined here. There is no ductal dilatation. No edema of the gallbladder wall. No tenderness. The cystic lesion identified on CT in the pancreas is not defined here. Echogenic liver consistent with fatty change.
--- NOTE | 2017-02-09 21:06 | PN- Att Addend ---
Attending Addendum Attending Brief Note Patient feeling and looking better but was seen by urology now has a Love catheter in place patient is a febrile vital signs are stable, no other changes physical. Blood cultures from the still negative. Impression is that the patient had sepsis of urological origin and that the bacteremia was transient. Patient is scheduled for TURP on morning and per ID recommendations patient can go through the surgery. The bioptic therapy as per IDs recommendations. Follow-up white count the last one was within normal limits. Sugars are also under better control. Current Medications Sig/Claire Start time Last Medication Dose Route Stop Time Status Admin Acetaminophen 325 MG Q6 PRN 02/05 1500 AC PO Ampicillin 2,000 MG Q8H 02/06 1800 AC 02/09 Sodium Chloride 100 ML IV 1742 Atorvastatin Calcium 5 MG 1700 02/05 1800 AC 02/09 PO 2042 Insulin Aspart 0 AT BEDTIME 02/06 2200 AC 02/08 SC 2150 Insulin Aspart 0 TIDAC 02/06 0900 AC 02/09 SC 2043 Insulin Detemir 12 UNITS BID 02/07 2200 AC 02/09 SC 2042 Lisinopril 10 MG DAILY 02/06 1429 AC 02/09 PO 0838 Morphine Sulfate 1 MG Q4 PRN 02/05 1500 AC IV Oxycodone/ 1 TAB Q6 PRN 02/05 1500 AC Acetaminophen PO Potassium Chloride 20 MEQ ONCE ONE 02/09 0900 DC 02/09 PO 02/09 0901 1103 Tamsulosin HCl 0.4 MG DAILY 02/06 1000 AC 02/09 PO 0837 Laboratory Tests 02/09/17 0630: Anion Gap 7, Estimated GFR > 60, BUN/Creatinine Ratio 20.0, CBC w Diff NO MAN DIFF REQ, RBC 3.87 L, MCV 92.5, MCH 31.4 H, RDW 13.0, MPV 8.3, Gran % 51.4, Lymphocytes % 40.9, Monocytes % 4.3, Eosinophils % 3.0, Basophils % 0.4, Absolute Granulocytes 2.5, Absolute Lymphocytes 2.0, Absolute Monocytes 0.2, Absolute Eosinophils 0.1, Absolute Basophils 0, PUBS MCHC 34.0 Microbiology Date/Time Procedure - Status Source Growth 02/09 1040 Urine Culture - COLB URINE ROUT Vital Signs Date Time Temp Pulse Resp B/P B/P Pulse O2 O2 Flow FiO2 Mean Ox Delivery Rate 04/25 1504 97.6 69 18 138/68 96 Intake & Output 02/09 1600 Intake Total 900 Output Total 1550 Balance -650 Intake, IV 100 Intake, Oral 800 Output, Urine 1550
--- NOTE | 2017-02-09 22:17 | NUR ---
SHIFT NOTE- PT A/OX3, ON RA, DENIES PAIN OR DISCOMFORT. ORTA DRAINING PINK COLORED URINE, SMALL CLOTS NOTED IN TUBING. ABD REMAINS DISTENDED BUT SOFT, +BS, +FLATUS. AMBULATING IN ROOM AND HALLWAY INDEP. CONTINUES ON ORDERED IV ABX. DIABETIC TEACHING DONE WITH SYMPTOMS OF HYPO/HYPERGLYCEMIA. PT ABLE TO STATE BACK VARIOUS SIGNS OF EACH CORRECTLY. PT SEEMS TO NEED MORE EDUCATION ON NUTRITION CHOICES. STATES "ITS CONFUSING TO KNOW WHAT TO EAT AND WHAT NOT TO EAT" NUTRITIONAL CONSULT IN PLACE. ASKS QUESTIONS REGARDING INSULIN-DIFFERENCE BETWEEN NOVOLOG AND LEVEMIR-EDUCATION DONE. WILL CONTINUE TO MONITOR.
[2017-02-09 22:27] VITALS: BP 120/60
--- NOTE | 2017-02-10 02:05 | NUR ---
AT 0100. PATIENT ON CC3 (NOT NPO PREVIOUSLY GIVEN IN REPORT). PATIENT BS 233. PER PATIENT SLIDING SCALE, NO BED TIME COVERAGE FOR BS UNDER 250. NO INSULIN GIVEN.
[2017-02-10 06:39] VITALS: BP 112/64
--- NOTE | 2017-02-10 07:51 | PN- Diabetes ---
Assessment/Plan Assessment: Patient came into the hospital with uncontrolled diabetes, hyper glycemic hyperosmolar state, and was found to have sepsis with enterococcus. He is presently doing well on 12 units of Levemir twice a day and sliding scale NovoLog. The patient feels okay. Love catheter has been being inserted by Dr. Santos. He is scheduled for a TURP tomorrow. He has been placed on Unasyn for enterococcus sensitive to ampicillin. He is to have an echocardiogram done.. The CT scan of abdomen and pelvis shows evidence of chronic pancreatitis which could contribute to the onset of his diabetes.. The patient's blood sugars yesterday were 175 before breakfast, 257 before lunch , 125 before dinner, and 169 at bedtime. Fingerstick blood sugar this morning is 189. Plan: Suggest continue the present insulin regimen today. If the patient is made nothing by mouth for the OR tomorrow I would reduce his Levemir to 6 units twice a day starting tonight and place him on sliding scale NovoLog every 4 hours. Sliding-scale NovoLog every 4 hours should be less than 150 give no insulin, 151 -200 give 3 units NovoLog, 201-250 give 4 units NovoLog, 251-300 give 5 units NovoLog, 301-350 give 6 units NovoLog, a 51-400 give 7 units NovoLog. When nothing by mouth after midnight I would place him on D5 half-normal saline at 100 mL per hour. Subjective Subjective: Feels okay Objective Last 24 Hrs of Vital Signs/I&O Vital Signs Date Time Temp Pulse Resp B/P B/P Pulse O2 O2 Flow FiO2 Mean Ox Delivery Rate 02/10 0639 98.1 62 18 112/64 96 Room Air 02/09 2227 98.6 80 20 120/60 95 Room Air 02/09 1504 97.6 69 18 138/68 96 02/09 0838 78 130/80 02/09 0837 78 130/80 Intake & Output 02/10 0800 02/10 0000 02/09 1600 Intake Total 150 900 Output Total 1500 1200 1550 Balance -1500 -1050 -650 Intake, IV 150 100 Intake, Oral 800 Output, Urine 1500 1200 1550 Vital Signs Date Time Temp Pulse Resp B/P B/P Pulse O2 O2 Flow FiO2 Mean Ox Delivery Rate 02/10 0639 98.1 62 18 112/64 96 Room Air 04/25 2227 98.6 80 20 120/60 95 Room Air 02/09 1504 97.6 69 18 138/68 96 02/09 0838 78 130/80 02/09 0837 78 130/80 Intake & Output 02/10 0800 02/10 0000 02/09 1600 Intake Total 150 900 Output Total 1500 1200 1550 Balance -1500 -1050 -650 Intake, IV 150 100 Intake, Oral 800 Output, Urine 1500 1200 1550 Current Medications: Current Medications Sig/Claire Start time Last Medication Dose Route Stop Time Status Admin Acetaminophen 325 MG Q6 PRN 02/05 1500 AC PO Ampicillin 2,000 MG Q8H 02/06 1800 AC 02/10 Sodium Chloride 100 ML IV 0211 Atorvastatin Calcium 5 MG 1700 02/05 1800 AC 02/09 PO 2042 Insulin Aspart 0 AT BEDTIME 02/06 2200 AC 02/08 SC 2150 Insulin Aspart 0 TIDAC 02/06 0900 AC 02/09 SC 2043 Insulin Detemir 12 UNITS BID 02/07 2200 AC 02/09 SC 204 Lisinopril 10 MG DAILY 02/06 1429 AC 02/09 PO 0838 Morphine Sulfate 1 MG Q4 PRN 02/05 1500 AC IV Oxycodone/ 1 TAB Q6 PRN 02/05 1500 AC Acetaminophen PO Potassium Chloride 20 MEQ ONCE ONE 02/09 0900 DC 02/09 PO 02/09 0901 1103 Tamsulosin HCl 0.4 MG DAILY 02/06 1000 AC 02/09 PO 0837
--- NOTE | 2017-02-10 10:59 | PN- Housestaff ---
Subjective Follow-up For: 1. Hyperosmolar hyperglycemic state 2. Sepsis 2/2 urilogical origin 3. BPH Subjective: No overnight events. This morning patient is alert awake and oriented. He is hemodynamically stable. He offers no complaints. He is anxious about having MRCP as he is claustrophobic. He has a Love catheter in. Review of Systems Constitutional: Reports: see HPI. Objective Last 24 Hrs of Vital Signs/I&O Vital Signs Date Time Temp Pulse Resp B/P B/P Pulse O2 O2 Flow FiO2 Mean Ox Delivery Rate 02/10 1112 80 136/64 02/10 1111 80 136/64 02/10 0639 98.1 62 18 112/64 96 Room Air 02/09 2227 98.6 80 20 120/60 95 Room Air 02/09 1504 97.6 69 18 138/68 96 Intake & Output 02/10 1600 02/10 0800 02/10 0000 Intake Total 810 150 Output Total 1500 1200 Balance 810 -1500 -1050 Intake, IV 130 150 Intake, Oral 680 Output, Urine 1500 1200 Physical Exam General Appearance: Alert, Oriented X3, Cooperative, looking anxious Neck: Supple Cardiovascular: Regular Rate Lungs: Clear to Auscultation Abdomen: Normal Bowel Sounds, Soft, No Tenderness Neurological: Normal Speech, Strength at 5/5 X4 Ext, Sensation Intact, Cranial Nerves 3-12 NL Extremities: No Edema Current Medications: Current Medications Sig/Claire Start time Last Medication Dose Route Stop Time Status Admin Acetaminophen 325 MG Q6 PRN 02/05 1500 AC PO Alprazolam 0.5 MG ONCE ONE 02/10 1145 DC PO 02/10 1146 Ampicillin 2,000 MG Q8H 02/06 1800 AC 02/10 Sodium Chloride 100 ML IV 1103 Atorvastatin Calcium 5 MG 1700 02/05 1800 AC 02/09 PO 2042 Dextrose/Sodium 1,000 ML Q10H 02/11 0000 AC Chloride IV Insulin Aspart 0 AT BEDTIME 02/06 2200 AC 02/08 SC 02/11 0000 2150 Insulin Aspart 0 TIDAC 02/06 0900 AC 02/10 SC 02/11 0000 1225 Insulin Detemir 6 UNITS BID 02/100 AC SC Insulin Detemir 12 UNITS BID 02/07 2200 DC 02/10 SC 1108 Insulin Human Regular 0 Q4 02/11 0000 AC SC Lisinopril 10 MG DAILY 02/06 1429 AC 02/10 PO 1112 Morphine Sulfate 1 MG Q4 PRN 02/05 1500 AC IV Oxycodone/ 1 TAB Q6 PRN 02/05 1500 AC Acetaminophen PO Tamsulosin HCl 0.4 MG DAILY 02/06 1000 AC 02/10 PO 1111 Lines/Diet/Fluids Love Still Needed? Yes Assessment/Plan Assessment: Mr. Upton is a 77-year-old gentleman with past medical history of hypertension, HLD, and BPH who presented to the emergency department on 02/05/2017 complaining of urinary incontinence, polyuria and polydipsia. Was initially admitted to the ICU, transferred to on 02/06. Assesment and Plan 1. Hyperosmolar hyperglycemic state The patient was initially admitted to the ICU, after being stablized and transitioned to SC insulin he was transferred to on 02/06. * Dr. Monterroso on board * Will continue with Levemir 12 units BID, NovoLog insulin sliding scale before each meal and at bedtime 2. Sepsis of urological origin/BPH * Admitted with one week Hx of urinary frequency, suprapubic discomfort and urinary incontinence. * Blood cultures 2 positive for Enterococcus * CT scan revealing a significantly enlarged prostate, bilateral perinephric stranding and kidney stones. Urine cultures are negative. * ID on board * Will continue with Ampicillin * Patient going for TURP by Dr. Santos tomorrow. Nothing by mouth after midnight tonight * Love catheter in place * Continue Flomax 3. MARCO * Cr was1.5 on admission, likely 2/2 dehydration and post obstructive. Now resolved with Cr 0.[address] Inc[address] findings on CT abdomen and pelvis * Indeterminate cystic lesion within the tail of the pancreas with calcifications. pseudocyst versus a cystic pancreatic neoplasm. * Indeterminant liver lesion, cyst. * Small exophytic cyst at the lower pole the right kidney. * These findings and need for MRI were discussed with patient and his sister. Patient is agreeable to do MRI. He wants low-dose Xanax before MRI. * 0.5 mg of Xanax x 1 was ordered 4. Hypertension and Hyperlipidemia * Continue lisinopril 10 mg daily * Continue atorvastatin 5 mg daily 5. Diet: Diet consistent carbohydrate 2 6. DVT prophylaxis Alps because of thrombocytopenia 7. FULL CODE Problem List: 1. Diabetic hyperosmolar non-ketotic state 2. BPH (benign prostatic hyperplasia) Pain Ratin Pain Location: none Pain Goal: Remain pain free Pain Plan: Tylenol Tomorrow's Labs & Rationales: INR, CBC DVT/Prophylaxis: mechanical Consulting Request: Consulting Physician: Dr. Monterroso Reason for Consult: Hyperosmolar coma
--- NOTE | 2017-02-10 13:51 | PN- Infect Dx ---
Subjective Subjective: Afebrile. He feels better with no complaints at this time. Objective Last 24 Hrs of Vital Signs/I&O Vital Signs Date Time Temp Pulse Resp B/P B/P Pulse O2 O2 Flow FiO2 Mean Ox Delivery Rate 02/10 1112 80 136/64 02/10 1111 80 136/64 02/10 0639 98.1 62 18 112/64 96 Room Air 02/09 2227 98.6 80 20 120/60 95 Room Air 02/09 1504 97.6 69 18 138/68 96 Intake & Output 02/10 1600 02/10 0800 02/10 0000 Intake Total 810 150 Output Total 550 1500 1200 Balance 260 -1500 -1050 Intake, IV 130 150 Intake, Oral 680 Output, Urine 550 1500 1200 Physical Exam Other Physical Findings: He appears comfortable in no acute distress Lungs are clear Abdomen is soft, nontender with positive bowel sounds Love catheter is in place Results Last 24 Hours of Lab Results: No labs from today Last 24 Hours of Marck Results: Blood cultures 2 February 06 remain negative Recent Imaging Studies: Right upper quadrant ultrasound February 09 revealed echogenic bile in the gallbladder with no ductal dilatation or gallbladder wall edema Assessment/Plan Impression: Stable with temperatures and white blood cell count remaining normal on Ampicillin Day 4 of treatment for Enterococcal bacteremia, felt to be of urologic origin, with his urinary complaints of frequency, incontinence and retention, superimposed on BPH and nephrolithiasis, despite the negative urine cultures. He is scheduled for a TURP in the a.m. Suggestion: 1. Await TURP in the a.m. 2. Await possible MRCP, per Radiology recommendations on the CT report 3. Continue Ampicillin, with eventual change to Amoxicillin 500 mg po every 8 hours to complete a 10-14 day course of treatment Meera Del Castillo MD will be covering me until February 16
[2017-02-10 14:32] VITALS: BP 140/70
--- NOTE | 2017-02-10 16:33 | MRI REPORT ---
EXAMINATION: MR ABDOMEN WITHOUT CONTRAST CLINICAL INFORMATION: 77-year-old male presented with septicemia. CT scan of the abdomen and pelvis done on 02/06/2017 showed distended gallbladder without other CT evidence of acute cholecystitis, indeterminate cystic lesion within the tail of the pancreas and indeterminate liver lesion. Subsequent ultrasound of the right upper quadrant of the abdomen failed to reveal the CT detected pancreatic cystic lesion. Follow-up MRI of the abdomen/MRCP is requested for further clarification. COMPARISON: CT of the abdomen and pelvis done on 02/06/2017 and right upper quadrant abdominal ultrasound done on 02/09/2017. TECHNIQUE: Multiplanar, multisequential MR images of the abdomen is obtained without administration of intravenous contrast. MRCP was performed. FINDINGS: LUNG BASES: Unremarkable. LIVER, GALLBLADDER, BILIARY TREE: Concordant with recent CT scan, there are at least 3 discrete focal subcentimeter T2 hyperintensities identified within the liver, not optimally characterized on this noncontrast study. There is mild diffuse hepatic steatosis present. The gallbladder remains distended, measures 6.1 x 5.8 cm at its maximum craniocaudal by transverse dimension however, appears unchanged since 02/06/2017. The CT detected layering milk of calcium is better visualized on the prior CT study and grossly appears unchanged as well. Similar to prior CT study, there is no evidence of any wall thickening, pericholecystic fluid collection identified. The cystic duct appears prominent and shows hypointense filling defects, consistent with calculi, better seen on prior CT study dated 02/06/2017. The intrahepatic as well as extrahepatic biliary ducts are decompressed. The common bile duct measures approximately 4-5 mm and is within normal limits without any filling defect. PANCREAS: Evaluation is technically limited on this noncontrast study. However, similar to prior CT study, there is indeed a 1.1 cm maximum dimension T2 hyperintensity identified within the tail of the pancreas consistent with nonspecific cyst. The adjacent part of the pancreatic duct within the distal part of the body and tail of the pancreas also appears slightly irregular, nodular with subtle hint of focal dilatation. The remainder of the pancreatic duct appears normal in course, caliber. There is no peripancreatic fluid collection identified. Differential diagnostic consideration would include pseudopancreatic cyst with underlying focal likely chronic pancreatitis versus cystic neoplasm including intraductal papillary mucinous tumor (IPMT). Further differentiation cannot be made based on this imaging appearance alone. SPLEEN: Unremarkable. ADRENAL GLANDS AND KIDNEYS: Both adrenal glands are unremarkable. There is an exophytic T2 hyperintensity present at the inferior posterolateral cortex of the right kidney measures 1.8 cm. 1.5 cm intracortical T2 hyperintensity is noted at the superior pole of the left kidney. These likely represent incidental cysts. Evaluation is limited due to lack of IV contrast. URETERS AND BLADDER: The visualized part of both proximal ureters appear decompressed. The urinary bladder is not included within the [id number] and accordingly not evaluated. BOWEL LOOPS: The visualized bowel loops appear decompressed. LYMPHOVASCULAR STRUCTURES: No pathologically enlarged lymphadenopathy identified within the visualized retroperitoneum. PELVIS: Was not included within the [id number] and accordingly not evaluated. BONES: Multilevel degenerative spondylosis-related changes are noted within the included visualized spine. IMPRESSION: 1. Persistent stable distended gallbladder with layering milk of calcium and evidence of calculi within the cystic duct, without any gallbladder wall thickening or pericholecystic fluid collection, appears stable since 02/06/2017. 2. Multiple nonspecific T2 hyperintense lesions are noted within the liver, not optimally characterized on this nonenhanced study. 3. A 1.1 cm cystic abnormality within the tail of the pancreas and subtle irregularities involving the adjacent part of the main pancreatic duct involving the distal part of the body and tail. Evaluation is limited due to lack of intravenous contrast. Possible differential diagnostic consideration would include pseudopancreatic cyst with underlying focal likely chronic pancreatitis versus cystic neoplasm including intraductal papillary mucinous tumor. 4. Decompressed intrahepatic biliary tree as well as decompressed common bile duct without any MR evidence of choledocholithiasis. 5. Bilateral T2 hyperintensities within the kidneys likely represent cortical renal cysts. Evaluation is limited due to lack of IV contrast.
--- NOTE | 2017-02-10 19:39 | PN- Att Addend ---
Attending Addendum Attending Brief Note Patient feeling better he's a febrile. He will have a TURP tomorrow morning, he will be nothing by mouth after midnight, so the insulin coverage will be adjusted according to Dr. Garcia recommendations patient continues on IV antibiotics for the urosepsis monitoring labs Love catheter in place Patient CAT scan showed that he may have had chronic pancreatitis I have contributed to the onset of diabetes Current Medications Sig/Claire Start time Last Medication Dose Route Stop Time Status Admin Acetaminophen 325 MG Q6 PRN 02/05 1500 AC PO Alprazolam 0.5 MG ONCE ONE 02/10 1145 DC 02/10 PO 02/10 1146 1325 Ampicillin 2,000 MG Q8H 02/06 1800 AC 02/10 Sodium Chloride 100 ML IV 1657 Atorvastatin Calcium 5 MG 1700 02/05 1800 AC 02/10 PO 1657 Dextrose/Sodium 1,000 ML Q10H 02/11 0000 AC Chloride IV Insulin Aspart 0 AT BEDTIME 02/06 2200 AC 02/08 SC 02/11 0000 2150 Insulin Aspart 0 TIDAC 02/06 0900 AC 02/10 SC 02/11 0000 1657 Insulin Detemir 6 UNITS BID 02/10 2200 AC SC Insulin Detemir 12 UNITS BID 02/07 2200 DC 02/10 SC 1108 Insulin Human Regular 0 Q4 02/11 0000 AC SC Lisinopril 10 MG DAILY 02/06 1429 AC 02/10 PO 1112 Morphine Sulfate 1 MG Q4 PRN 02/05 1500 DC IV Oxycodone/ 1 TAB Q6 PRN 02/05 1500 DC Acetaminophen PO Tamsulosin HCl 0.4 MG DAILY 02/06 1000 AC 02/10 PO 1111 Vital Signs Date Time Temp Pulse Resp B/P B/P Pulse O2 O2 Flow FiO2 Mean Ox Delivery Rate 02/10 1432 97.7 87 20 140/70 97 Intake & Output 02/10 1600 Intake Total 1050 Output Total 550 Balance 500 Intake, IV 130 Intake, Oral 920 Output, Urine 550
[2017-02-10 21:44] VITALS: BP 132/80
[2017-02-11 07:17] VITALS: BP 112/66
--- NOTE | 2017-02-11 07:38 | PN- Diabetes ---
Assessment/Plan Assessment: Patient came into the hospital with uncontrolled diabetes, hyper glycemic hyperosmolar state, and was found to have sepsis with enterococcus. And is presently nothing by mouth for his prostate surgery this morning. The patient feels okay. Love catheter has been being inserted by Dr. Santos. He is scheduled for a TURP today. He has been placed on Unasyn for enterococcus sensitive to ampicillin. He is to have an echocardiogram done.. The CT scan of abdomen and pelvis shows evidence of chronic pancreatitis which could contribute to the onset of his diabetes.. The patient is on D5 half-normal saline at 100 mL per hour. He received 6 units of Levemir last night. This morning his sugar is 186. He is on regular insulin every 4 hours rather than NovoLog every 4 hours as suggested in yesterday's note. Plan: Suggest change the insulin sliding scale coverage while NPO to NovoLog every 4 hours beginning with the sugar above 150. Since his sugar is down to 186 this morning we can hold his Levemir this morning. When the patient returns from the OR and is eating again we can place him back on his previous insulin with mealtime NovoLog coverage and increase his Levemir back to 12 units twice a day. Subjective Subjective: Feels okay Review of Systems Constitutional: Denies: chills, fever. Cardiovascular: Denies: chest pain. Respiratory: Denies: short of breath. Gastrointestinal: Denies: abdominal pain, nausea, vomiting. Skin: Reports: no symptoms. Objective Last 24 Hrs of Vital Signs/I&O Vital Signs Date Time Temp Pulse Resp B/P B/P Pulse O2 O2 Flow FiO2 Mean Ox Delivery Rate 02/11 0717 98.0 68 20 112/66 95 Room Air 02/11 2144 98.2 73 18 132/80 95 Room Air 02/10 1432 97.7 87 20 140/70 97 02/10 1112 80 136/64 02/10 1111 80 136/64 Intake & Output 02/11 0800 02/11 0000 02/10 1600 Intake Total 730 1050 Output Total 1450 550 Balance -1450 730 500 Intake, IV 130 130 Intake, Oral 600 920 Output, Urine 1450 550 Vital Signs Date Time Temp Pulse Resp B/P B/P Pulse O2 O2 Flow FiO2 Mean Ox Delivery Rate 02/11 0717 98.0 68 20 112/66 95 Room Air 04/26 2144 98.2 73 18 132/80 95 Room Air 02/10 1432 97.7 87 20 140/70 97 02/10 1112 80 136/64 02/10 1111 80 136/64 Intake & Output 02/11 0800 02/11 0000 02/10 1600 Intake Total 730 1050 Output Total 1450 550 Balance -1450 730 500 Intake, IV 130 130 Intake, Oral 600 920 Output, Urine 1450 550 Physical Exam General Appearance: alert, awake, comfortable Neck: normal inspection Respiratory: normal breath sounds Cardiovascular: regular rate/rhythm Extremities: normal inspection Current Medications: Current Medications Sig/Claire Start time Last Medication Dose Route Stop Time Status Admin Acetaminophen 325 MG Q6 PRN 02/05 1500 AC PO Alprazolam 0.5 MG ONCE ONE 02/10 1145 DC 02/10 PO 02/10 1146 1325 Ampicillin 2,000 MG Q8H 02/06 1800 AC 02/11 Sodium Chloride 100 ML IV 0213 Atorvastatin Calcium 5 MG 1700 02/05 1800 AC 02/10 PO 1657 Dextrose/Sodium 1,000 ML Q10H 02/11 0000 AC 02/10 Chloride IV 2346 Insulin Aspart 0 AT BEDTIME 02/06 2200 DC 02/08 SC 02/11 0000 2150 Insulin Aspart 0 TIDAC 02/06 0900 DC 02/10 SC 02/11 0000 1657 Insulin Detemir 6 UNITS BID 02/10 2200 AC 02/10 SC 2041 Insulin Detemir 12 UNITS BID 02/07 2200 DC 02/10 SC 1108 Insulin Human Regular 0 Q4 02/11 0200 02/11 SC 0600 Insulin Human Regular 0 Q4 02/11 0000 DC SC Lisinopril 10 MG DAILY 02/06 1429 AC 02/10 PO 1112 Morphine Sulfate 1 MG Q4 PRN 02/05 1500 DC IV Oxycodone/ 1 TAB Q6 PRN 02/05 1500 DC Acetaminophen PO Tamsulosin HCl 0.4 MG DAILY 02/06 1000 AC 02/10 PO 1111 Findings Pertinent Lab/Marck Results: Laboratory Tests 02/11 0630 Coagulation PT Pending INR Pending Hematology CBC w Diff Pending WBC Pending RBC Pending Hgb Pending Hct Pending MCV Pending MCH Pending RDW Pending Plt Count Pending MPV Pending PUBS MCHC Pending
[2017-02-11 08:23] LABS: PT 11.2 SEC (9.4-12.5)
[2017-02-11 08:41] LABS: ABSOLUTE BASOPHIL COUNT 0 /CUMM (0.0-0.2); ABSOLUTE EOSINOPHIL COUNT 0.1 /CUMM (0.0-0.7); ABSOLUTE GRANULOCYTE CT 2.7 /CUMM (1.4-6.5); ABSOLUTE LYMPH COUNT 1.6 /CUMM (1.2-3.4); ABSOLUTE MONOCYTE COUNT 0.3 /CUMM (0.10-0.60); BASOPHIL % 0.3 % (0.0-2.0); EOSINOPHIL % 3.1 % (0-5); GRANULOCYTE % 56.3 % (42.2-75.2); HEMATOCRIT 35.5 % (42-52); MEAN CORPUSCULAR HGB 31.6 PG (27.0-31.0); MEAN CORPUSCULAR HGB CONC 34.3 G/DL (33.0-37.0); MEAN CORPUSCULAR VOLUME 92.1 FL (80.0-94.0); MEAN PLATELET VOLUME 7.9 FL (7.4-10.4); PLATELET COUNT 94 /CUMM (130-400); RBC DISTRIBUTION WIDTH 12.9 % (11.5-14.5); RED BLOOD CELL CT 3.85 /CUMM (4.70-6.10); WHITE BLOOD CELL COUNT 4.8 /CUMM (4.8-10.8)
--- NOTE | 2017-02-11 10:00 | NUR ---
TO OR VIA STRETCHER. ALERT ORIENTED X3. SISTER AT BEDSIDE. NO COMPLAINTS. VSS.
[2017-02-11 10:06] VITALS: BP 140/80
--- NOTE | 2017-02-11 13:12 | PN- Housestaff ---
Subjective Follow-up For: 1. Hyperosmolar hyperglycemic state 2. Sepsis 2/2 urilogical origin 3. BPH Subjective: No overnight events. Patient is nothing by mouth from midnight last night for TURP today. He is alert, awake and oriented. He is hemodynamically stable. Review of Systems Constitutional: Reports: see HPI. Objective Last 24 Hrs of Vital Signs/I&O Vital Signs Date Time Temp Pulse Resp B/P B/P Pulse O2 O2 Flow FiO2 Mean Ox Delivery Rate 02/11 1006 97.8 65 20 140/80 94 02/11 0840 72 142/70 02/11 0717 98.0 68 20 112/66 95 Room Air 02/10 2144 98.2 73 18 132/80 95 Room Air 02/10 1432 97.7 87 20 140/70 97 Intake & Output 02/11 1600 02/11 0800 02/11 0000 Intake Total 400 800 730 Output Total 500 1450 Balance -100 -650 730 Intake, IV 400 800 130 Intake, Oral 0 600 Number 0 Bowel Movements Output, Urine 500 1450 Physical Exam General Appearance: Alert, Oriented X3, Cooperative, No Acute Distress Cardiovascular: Regular Rate, No Murmurs Lungs: Clear to Auscultation Abdomen: Normal Bowel Sounds, Soft, No Tenderness Neurological: Normal Speech, Strength at 5/5 X4 Ext, Sensation Intact, Cranial Nerves 3-12 NL Extremities: No Edema Current Medications: Current Medications Sig/Claire Start time Last Medication Dose Route Stop Time Status Admin Acetaminophen 325 MG Q6 PRN 02/05 1500 AC PO Ampicillin 2,000 MG Q8H 02/06 1800 AC 02/11 Sodium Chloride 100 ML IV 0937 Atorvastatin Calcium 5 MG 1700 02/05 1800 AC 02/10 PO 1657 Dextrose/Sodium 1,000 ML Q10H 02/11 0000 AC 02/10 Chloride IV 2346 Insulin Aspart 0 Q4 02/11 1000 AC 02/11 WA 1002 Insulin Aspart 0 AT BEDTIME 02/06 2200 DC 02/08 WA 02/11 0000 2150 Insulin Aspart 0 TIDAC 02/06 0900 DC 02/10 SC 02/11 0000 1657 Insulin Detemir 6 UNITS BID 02/10 2200 AC 02/10 SC 2041 Insulin Human Regular 0 Q4 02/11 0200 DC 02/11 SC 0600 Insulin Human Regular 0 Q4 02/11 0000 DC SC Lisinopril 10 MG DAILY 02/06 1429 AC 02/11 PO 0840 Morphine Sulfate 1 MG Q4 PRN 02/05 1500 DC IV Oxycodone/ 1 TAB Q6 PRN 02/05 1500 DC Acetaminophen PO Tamsulosin HCl 0.4 MG DAILY 02/06 1000 AC 02/11 PO 0840 Last 24 Hrs of Lab/Marck Results Last 24 Hrs of Labs/Mics: Laboratory Tests 02/11/17 0630: PT 11.2, INR 1.07, CBC w Diff NO MAN DIFF REQ, RBC 3.85 L, MCV 92.1, MCH 31.6 H, RDW 12.9, MPV 7.9, Gran % 56.3, Lymphocytes % 34.0, Monocytes % 6.3, Eosinophils % 3.1, Basophils % 0.3, Absolute Granulocytes 2.7, Absolute Lymphocytes 1.6, Absolute Monocytes 0.3, Absolute Eosinophils 0.1, Absolute Basophils 0, PUBS MCHC 34.3 Lines/Diet/Fluids Catheters/Tubes: zelaya Zelaya Still Needed? Yes Assessment/Plan Assessment: Mr. Upton is a 77-year-old gentleman with past medical history of hypertension, HLD, and BPH who presented to the emergency department on 02/05/2017 complaining of urinary incontinence, polyuria and polydipsia. Was initially admitted to the ICU, transferred to on 02/06. Assesment and Plan 1. Hyperosmolar hyperglycemic state The patient was initially admitted to the ICU, after being stablized and transitioned to SC insulin he was transferred to on 02/06. * Dr. Monterroso on board * Will continue with Levemir 12 units BID, NovoLog insulin sliding scale before each meal and at bedtime * Currently on nothing by mouth sliding scale and half of Levemir. 2. Sepsis of urological origin/BPH * Blood cultures 2 positive for Enterococcus. Blood cultures February 06 negative to date * CT scan revealing a significantly enlarged prostate, bilateral perinephric stranding and kidney stones. Urine cultures are negative. * Will continue with Ampicillin * Patient going for TURP by Dr. Santos today. * Zelaya catheter in place * Continue Flomax 3. MARCO * Cr was1.5 on admission, likely 2/2 dehydration and post obstructive. Now resolved with Cr 0.8 [address]. Incidental findings on CT abdomen and pelvis * Indeterminate cystic lesion within the tail of the pancreas with calcifications. pseudocyst versus a cystic pancreatic neoplasm. * Indeterminant liver lesion, cyst. * Small exophytic cyst at the lower pole the right kidney. * MRI abdomen was done without contrast yesterday. Same findings. Evaluation was limited due to lack of IV contrast * Plan is for open MRI with contrast as an outpatient Diet consistent carbohydrate 2 DVT prophylaxis Alps because of thrombocytopenia FULL CODE Problem List: 1. BPH (benign prostatic hyperplasia) Pain Ratin Pain Location: none Pain Goal: Pain 4 or less Pain Plan: Tylenol Tomorrow's Labs & Rationales: BEP DVT/Prophylaxis: mechanical
--- NOTE | 2017-02-11 13:35 | Operative Report ---
Operative/Inv Procedure Report Surgery Date: 02/11/17 Name of Procedure: cystoscopy: standard TURP Pre-Operative Diagnosis: gross hematuria: urinary retention and failed multiple voiding trials. Post-Operative Diagnosis: same Estimated Blood Loss: 50ml to 100ml Surgeon/[employer] Machine Helper: MD SMILEY CASTELLANO-UROLOGY Anesthesia: laryngeal mask airway Drains: 22 FR: 3-Way with NS CBI Specimens: Prostate chips Complications: None Operative/Procedure Note Note: The patient was taken to the operating room and placed on the OR table in supine position. Timeout was performed, with the pt. awake, to correctly identify the patient, anesthesia, procedure, and IV antibiotics, and other pertinent perioperative information. After adequate anesthesia and antibiotics, the old Zelaya catheter was removed. The patient was then placed in lithotomy stirrups using yellowfin stirrups. The patient was then draped and prepped in the usual surgical fashion. A 26 Faroese standard resectoscope sheath with a 30 angle lens and the 24 Faroese loop was inserted into the urethra, and then advanced into the bladder without difficulty. A FEW small clots, and bladder stones, were noted in the bladder, and were Ellix evacuated out. With a clearer vision, the prostate was noted to have an irregular and ratty surface with severely coapting lobes. Additionally, the prostate was hypervascular consistent with regrowth. Upon entering the bladder, it was thoroughly and systematically surveyed revealing no evidence of tumor, no evidence of stone, both orifices were difficult to find due to the severe trabeculation, in their orthotopic position with clear yellow reflux. The resectoscope was then retracted to the level of the venu montanum. Under direct visualization the 24 Faroese loop was then extended beyond the scope. Under direct visualization, and using the cutting current, the left lobe of the prostate was resected from the 2:00 to the 6 o'clock position to the level of the fibromuscular capsule. Using coag current, spot cauterization was performed in order to achieve good hemostasis of the prostate. The loop was then extended once again using cutting current to resect the right side of the prostate from the 10:00 to the 6 o'clock position to the level of the fibromuscular capsule. Spot cauterization using coag current was then performed in order to achieve good hemostasis. Maintaining the position of the resectoscope at the level of the vera montanum the apical tissue was resected as well on both sides. The external sphincter was preserved. The bladder was then re-entered via the resectoscope, and the prostate chips were irrigated out using tumey evacuation. Once all the prostate chips were removed, the bladder was re-evaluating and noted to have no untoward injury. Additionally, the prostate channel was noted to have good hemostasis, with a wide open channel. The resectoscope was removed with the bladder full. A 22 Faroese couvalier three-way Zelaya catheter was inserted without difficulty draining clear fluid. The bladder was again copiously irrigated via the zelaya to ensure patency/ The 30 mL balloon was then filled, and continuous bladder irrigation with normal saline was initiated. Clear and easy drainage of NS from the main port was confirmed with CBI. All sponge needle and instrument count were correct at the end of the case. The patient tolerated the procedure well and was then taken to the recovery room in satisfactory condition. Findings: Large prostate. Approximately 20 g of prostate chips removed. Discharge Disposition: PACU CC: SMILEY CASTELLANO MD
--- NOTE | 2017-02-11 14:00 | NUR ---
RECEIVED FROM PACU: S/P TURP. PATIENT ALERT ORIENTED X3. VITALS: BP 108/60, P 82, T 96.5, PULSE OX ON ROOM AIR 97%, RR 18. PATIENT REPORTING PRESSURE IN BLADDER, " I FEEL LIKE I HAVE TO URINATE". CBI BAG # [address] CASTELLANO MAY IRRIGATE ORTA FOR PRESSURE PAIN. IRRIGATED WITH 40 ML NS RECEIVED MEDIUM SIZE BLOOD CLOTS, CBI RESUMED WITHOUT DIFFICULTY DRAINING PINK COLORED HEMATURIA. CALL DÍAZ IN REACH. SEE NURSING ASSESSMENT FLOWSHEETS FOR FURTHER DOCUMENTATION.
[2017-02-11 15:47] VITALS: BP 108/60
--- NOTE | 2017-02-11 15:54 | PN- Att Addend ---
Attending Addendum Attending Brief Note Patient had an uneventful night this morning went to the operating room and Dr. Santos performed a TURP patient did well now recovering with vital signs are stable afebrile no other changes on physical continue observation and monitoring urinary output. Current Medications Sig/Claire Start time Last Medication Dose Route Stop Time Status Admin Acetaminophen 1,000 MG .STK-MED ONE 02/11 0745 DC IV 02/11 0746 Acetaminophen 325 MG Q6 PRN 02/05 1500 AC PO Ampicillin 2,000 MG Q8H 02/06 1800 AC 02/11 Sodium Chloride 100 ML IV 0937 Atorvastatin Calcium 5 MG 1700 02/05 1800 AC 02/10 PO 1657 Dextrose/Sodium 1,000 ML Q10H 02/11 0000 AC 02/10 Chloride IV 2346 Fentanyl Citrate 100 MCG .STK-MED ONE 02/11 0745 DC IM 02/11 0746 Hydromorphone HCl 2 MG .STK-MED ONE 02/11 0745 DC IM 02/11 0746 Insulin Aspart 0 AT BEDTIME 02/11 2200 AC SC Insulin Aspart 0 TIDAC 02/11 1700 AC SC Insulin Aspart 0 Q4 02/11 1000 DC 02/11 SC 1002 Insulin Aspart 0 AT BEDTIME 02/06 2200 DC 02/08 SC 02/11 0000 2150 Insulin Aspart 0 TIDAC 02/06 0900 DC 02/10 SC 02/11 0000 1657 Insulin Detemir 12 UNITS BID 02/11 2200 AC SC Insulin Detemir 6 UNITS BID 02/10 2200 DC 02/10 SC 2041 Insulin Human Regular 0 Q4 02/11 0200 DC 02/11 SC 0600 Insulin Human Regular 0 Q4 02/11 0000 DC SC Ketorolac 30 MG .STK-MED ONE 02/11 0746 DC Tromethamine IM 02/11 0747 Lisinopril 10 MG DAILY 02/06 1429 AC 02/11 PO 0840 Midazolam HCl 2 MG .STK-MED ONE 02/11 0746 DC IM 02/11 0747 Tamsulosin HCl 0.4 MG DAILY 02/06 1000 AC 02/11 PO 0840 Laboratory Tests 02/11/17 0630: PT 11.2, INR 1.07, CBC w Diff NO MAN DIFF REQ, RBC 3.85 L, MCV 92.1, MCH 31.6 H, RDW 12.9, MPV 7.9, Gran % 56.3, Lymphocytes % 34.0, Monocytes % 6.3, Eosinophils % 3.1, Basophils % 0.3, Absolute Granulocytes 2.7, Absolute Lymphocytes 1.6, Absolute Monocytes 0.3, Absolute Eosinophils 0.1, Absolute Basophils 0, PUBS MCHC 34.3 Vital Signs Date Time Temp Pulse Resp B/P B/P Pulse O2 O2 Flow FiO2 Mean Ox Delivery Rate 02/11 1547 96.5 82 18 108/60 97 02/11 1006 97.8 65 20 140/80 94 02/11 0840 72 142/70 Intake & Output 02/11 1600 Intake Total 400 Output Total 500 Balance -100 Intake, IV 400 Output, Urine 500
--- NOTE | 2017-02-11 17:59 | PN- Infect Dx ---
Subjective Subjective: S/P TURP; patient did well now recovering with vital signs are stable afebrile no other changes on physical continue observation and monitoring urinary output. Review of Systems Comments: 12 points reviewed as noted, otherwise negative. Objective Last 24 Hrs of Vital Signs/I&O Vital Signs Date Time Temp Pulse Resp B/P B/P Pulse O2 O2 Flow FiO2 Mean Ox Delivery Rate 02/11 1547 96.5 82 18 108/60 97 02/11 1006 97.8 65 20 140/80 94 02/11 0840 72 142/70 02/11 0717 98.0 68 20 112/66 95 Room Air 02/10 2144 98.2 73 18 132/80 95 Room Air Intake & Output 02/11 1600 02/11 0800 02/11 0000 Intake Total 400 800 730 Output Total 500 1450 1400 Balance -100 -650 -670 Intake, IV 400 800 130 Intake, Oral 0 600 Number 0 Bowel Movements Output, Urine 500 1450 1400 Physical Exam Other Physical Findings: He appears comfortable in no acute distress HEENT AT/sclera anicteric Neck No KJVD Lungs are clear Abdomen is soft, nontender with positive bowel sounds Love catheter is in place Extr: no c/c Neuro: awake and alert Results Last 24 Hours of Lab Results: Laboratory Tests 02/11 0630 Coagulation PT (9.4 - 12.5 SEC) 11.2 INR (0.90 - 1.17) 1.07 Hematology CBC w Diff NO MAN DIFF REQ WBC (4.8 - 10.8 /CUMM) 4.8 RBC (4.70 - 6.10 /CUMM) 3.85 L Hgb (14.0 - 18.0 G/DL) 12.2 L Hct (42 - 52 %) 35.5 L MCV (80.0 - 94.0 FL) 92.1 MCH (27.0 - 31.0 PG) 31.6 H RDW (11.5 - 14.5 %) 12.9 Plt Count (130 - 400 /CUMM) 94 L MPV (7.4 - 10.4 FL) 7.9 Gran % (42.2 - 75.2 %) 56.3 Lymphocytes % (20.5 - 51.1 %) 34.0 Monocytes % (1.7 - 9.3 %) 6.3 Eosinophils % (0 - 5 %) 3.1 Basophils % (0.0 - 2.0 %) 0.3 Absolute Granulocytes (1.4 - 6.5 /CUMM) 2.7 Absolute Lymphocytes (1.2 - 3.4 /CUMM) 1.6 Absolute Monocytes (0.10 - 0.60 /CUMM) 0.3 Absolute Eosinophils (0.0 - 0.7 /CUMM) 0.1 Absolute Basophils (0.0 - 0.2 /CUMM) 0 PUBS MCHC (33.0 - 37.0 G/DL) 34.3 Last 24 Hours of Marck Results: EC #: [id number] YANICK: 02/05/17 STATUS: COMP RECD: 02/05/[address] [facility] [address]: KATARINA CHAUHAN, REET SOURCE: BLOOD ENTR: 02/05/17-[address] [facility] [address]: NEGRA GUZMAN SPDESC: 2ND/VENOUS LYRIC CHAUHAN, TOMA ORDERED: BLOOD CULTURE Procedure Result > BLOOD CULTURE REPORT Final 02/08/17124 GRAM STAIN SUGGESTIVE OF: GRAM POSITIVE COCCI IN PAIRS AND CHAINS Called to/Readback by : ARISTIDES AT 0555 LABNAV REPORTED TO [employer]PER[employer] [facility] FOR DR GUNTER . DR VINCENT AT 0650. ENTERED by DAVID 02/06/17. CULTURE: ENTEROCOCCUS ISOLATED 1. ENTEROCOCCUS RX AB ------ -- AMPICILLIN S VANCOMYCIN S Streptomycin Synergy Screen S Gentamicin Synergy Screen S Recent Imaging Studies: SERVICE DATE: 02/10/17 EXAM TYPE: MRI - MRI-ABDOMEN EXAMINATION: MR ABDOMEN WITHOUT CONTRAST CLINICAL INFORMATION: 77-year-old male presented with septicemia. CT scan of the abdomen and pelvis done on 02/06/2017 showed distended gallbladder without other CT evidence of acute cholecystitis, indeterminate cystic lesion within the tail of the pancreas and indeterminate liver lesion. Subsequent ultrasound of the right upper quadrant of the abdomen failed to reveal the CT detected pancreatic cystic lesion. Follow-up MRI of the abdomen/MRCP is requested for further clarification. COMPARISON: CT of the abdomen and pelvis done on 02/06/2017 and right upper quadrant abdominal ultrasound done on 02/09/2017. TECHNIQUE: Multiplanar, multisequential MR images of the abdomen is obtained without administration of intravenous contrast. MRCP was performed. FINDINGS: LUNG BASES: Unremarkable. LIVER, GALLBLADDER, BILIARY TREE: Concordant with recent CT scan, there are at least 3 discrete focal subcentimeter T2 hyperintensities identified within the liver, not optimally characterized on this noncontrast study. There is mild diffuse hepatic steatosis present. The gallbladder remains distended, measures 6.1 x 5.8 cm at its maximum craniocaudal by transverse dimension however, appears unchanged since 02/06/2017. The CT detected layering milk of calcium is better visualized on the prior CT study and grossly appears unchanged as well. Similar to prior CT study, there is no evidence of any wall thickening, pericholecystic fluid collection identified. The cystic duct appears prominent and shows hypointense filling defects, consistent with calculi, better seen on prior CT study dated 02/06/2017. The intrahepatic as well as extrahepatic biliary ducts are decompressed. The common bile duct measures approximately 4-5 mm and is within normal limits without any filling defect. PANCREAS: Evaluation is technically limited on this noncontrast study. However, similar to prior CT study, there is indeed a 1.1 cm maximum dimension T2 hyperintensity identified within the tail of the pancreas consistent with nonspecific cyst. The adjacent part of the pancreatic duct within the distal part of the body and tail of the pancreas also appears slightly irregular, nodular with subtle hint of focal dilatation. The remainder of the pancreatic duct appears normal in course, caliber. There is no peripancreatic fluid collection identified. Differential diagnostic consideration would include pseudopancreatic cyst with underlying focal likely chronic pancreatitis versus cystic neoplasm including intraductal papillary mucinous tumor (IPMT). Further differentiation cannot be made based on this imaging appearance alone. SPLEEN: Unremarkable. ADRENAL GLANDS AND KIDNEYS: Both adrenal glands are unremarkable. There is an exophytic T2 hyperintensity present at the inferior posterolateral cortex of the right kidney measures 1.8 cm. 1.5 cm intracortical T2 hyperintensity is noted at the superior pole of the left kidney. These likely represent incidental cysts. Evaluation is limited due to lack of IV contrast. URETERS AND BLADDER: The visualized part of both proximal ureters appear decompressed. The urinary bladder is not included within the [id number] and accordingly not evaluated. BOWEL LOOPS: The visualized bowel loops appear decompressed. LYMPHOVASCULAR STRUCTURES: No pathologically enlarged lymphadenopathy identified within the visualized retroperitoneum. PELVIS: Was not included within the [id number] and accordingly not evaluated. BONES: Multilevel degenerative spondylosis-related changes are noted within the included visualized spine. IMPRESSION: 1. Persistent stable distended gallbladder with layering milk of calcium and evidence of calculi within the cystic duct, without any gallbladder wall thickening or pericholecystic fluid collection, appears stable since 02/06/2017. 2. Multiple nonspecific T2 hyperintense lesions are noted within the liver, not optimally characterized on this nonenhanced study. 3. A 1.1 cm cystic abnormality within the tail of the pancreas and subtle irregularities involving the adjacent part of the main pancreatic duct involving the distal part of the body and tail. Evaluation is limited due to lack of intravenous contrast. Possible differential diagnostic consideration would include pseudopancreatic cyst with underlying focal likely chronic pancreatitis versus cystic neoplasm including intraductal papillary mucinous tumor. 4. Decompressed intrahepatic biliary tree as well as decompressed common bile duct without any MR evidence of choledocholithiasis. 5. Bilateral T2 hyperintensities within the kidneys likely represent cortical renal cysts. Evaluation is limited due to lack of IV contrast. DICTATED BY: TRINITY REN MD DATE/TIME DICTATED:02/10/171 NUCLEAR MEDICINE SPECIALIST:MAHOGANY Assessment/Plan Impression: 77-year-old gentleman with past medical history of hypertension, HLD, and BPH, DM2 admitted on 02/05/2017. Transient enterococcal bacteremia, felt to be of urologic origin, with his urinary complaints of frequency, incontinence and retention; repeat BC 02/06 NGTD. BPH s/p TURP Nephrolithiasis Suggestion: 1. F/u urology recom. 2. MRI abdomen performed; abnormal pancreatic findings 3. Continue iv Ampicillin D #5 while inpatient, with eventual change to Amoxicillin 500 mg po q 8 hours to complete a 10-14 day course of treatment.
[2017-02-11 18:00] VITALS: BP 110/60
[2017-02-11 22:00] VITALS: BP 114/60
[2017-02-12 07:46] VITALS: BP 124/78
[2017-02-12 08:10] LABS: ABSOLUTE BASOPHIL COUNT 0 /CUMM (0.0-0.2); ABSOLUTE EOSINOPHIL COUNT 0.1 /CUMM (0.0-0.7); ABSOLUTE GRANULOCYTE CT 4.4 /CUMM (1.4-6.5); ABSOLUTE LYMPH COUNT 1.2 /CUMM (1.2-3.4); ABSOLUTE MONOCYTE COUNT 0.3 /CUMM (0.10-0.60); BASOPHIL % 0.5 % (0.0-2.0); EOSINOPHIL % 2.3 % (0-5); GRANULOCYTE % 72.2 % (42.2-75.2); HEMATOCRIT 33.5 % (42-52); MEAN CORPUSCULAR HGB CONC 34.4 G/DL (33.0-37.0); MEAN CORPUSCULAR VOLUME 93.1 FL (80.0-94.0); MEAN PLATELET VOLUME 7.5 FL (7.4-10.4); PLATELET COUNT 101 /CUMM (130-400); RBC DISTRIBUTION WIDTH 13.2 % (11.5-14.5); RED BLOOD CELL CT 3.59 /CUMM (4.70-6.10); WHITE BLOOD CELL COUNT 6.1 /CUMM (4.8-10.8)
--- NOTE | 2017-02-12 08:12 | PN- Diabetes ---
Assessment/Plan Assessment: Patient came into the hospital with uncontrolled diabetes, hyper glycemic hyperosmolar state, and was found to have sepsis with enterococcus. He has been placed on Unasyn for enterococcus sensitive to ampicillin. He is to have an echocardiogram done.. The CT scan of abdomen and pelvis shows evidence of chronic pancreatitis which could contribute to the onset of his diabetes.. She went to the operating room yesterday and had a TURP performed. States he is feeling okay today. He is eating. His blood sugars were high yesterday but his usual insulin regimen was interrupted. He is back on his usual insulin now. Plan: Suggest continue the present insulin regimen. We can add metformin 500 mg twice a day with breakfast and with dinner to his regimen. The patient needs to be taught to take his own insulin at home and also to measure his own blood sugars. He also should have a dietary consult. Subjective Subjective: Feels okay Review of Systems Constitutional: Denies: chills, fever. Cardiovascular: Denies: chest pain. Respiratory: Denies: cough, short of breath. Genitourinary: Reports: pain. Skin: Reports: no symptoms. Objective Last 24 Hrs of Vital Signs/I&O Vital Signs Date Time Temp Pulse Resp B/P B/P Pulse O2 O2 Flow FiO2 Mean Ox Delivery Rate 02/12 0746 98.5 75 20 124/78 97 Room Air 02/11 2200 97.9 74 20 114/60 96 Room Air 02/11 1800 98.3 85 20 110/60 93 Room Air 02/11 1547 96.5 82 18 108/60 97 02/11 1006 97.8 65 20 140/80 94 02/11 0840 72 142/70 Intake & Output 02/12 1600 02/12 0800 02/12 0000 Intake Total 500 Output Total 1100 Balance -600 Intake, IV 400 Intake, Oral 100 Output, Urine 1100 Vital Signs Date Time Temp Pulse Resp B/P B/P Pulse O2 O2 Flow FiO2 Mean Ox Delivery Rate 02/12 0746 98.5 75 20 124/78 97 Room Air 02/11 2200 97.9 74 20 114/60 96 Room Air 02/11 1800 98.3 85 20 110/60 93 Room Air 02/11 1547 96.5 82 18 108/60 97 02/11 1006 97.8 65 20 140/80 94 02/11 0840 72 142/70 Intake & Output 02/12 1600 02/12 0800 02/12 0000 Intake Total 500 Output Total 1100 Balance -600 Intake, IV 400 Intake, Oral 100 Output, Urine 1100 Physical Exam General Appearance: alert, awake, comfortable Head: normal appearance Neck: normal inspection Respiratory: normal breath sounds Cardiovascular: regular rate/rhythm Abdomen: normal bowel sounds, soft Extremities: normal inspection Current Medications: Current Medications Sig/Claire Start time Last Medication Dose Route Stop Time Status Admin Acetaminophen 325 MG Q6 PRN 02/05 1500 AC PO Ampicillin 2,000 MG Q8H 02/06 1800 AC 02/12 Sodium Chloride 100 ML IV 0224 Atorvastatin Calcium 5 MG 1700 02/05 1800 AC 02/11 PO 1729 Dextrose/Sodium 1,000 ML Q10H 02/11 0000 DC 02/10 Chloride IV 2346 Insulin Aspart 0 AT BEDTIME 02/11 2200 AC 02/11 SC 2058 Insulin Aspart 0 TIDAC 02/11 1700 AC 02/11 SC 1806 Insulin Aspart 0 Q4 02/11 1000 DC 02/11 SC 1002 Insulin Detemir 12 UNITS BID 02/11 2200 AC 02/11 SC 2058 Insulin Detemir 6 UNITS BID 02/10 2200 DC 02/10 SC 2041 Insulin Human Regular 0 Q4 02/11 0200 DC 02/11 SC 0600 Lisinopril 10 MG DAILY 02/06 1429 AC 02/11 PO 0840 Ondansetron HCl 4 MG .STK-MED ONE 02/11 1249 DC IM 02/11 1250 Tamsulosin HCl 0.4 MG DAILY 02/06 1000 AC 02/11 PO 0840 Findings Pertinent Lab/Marck Results: Laboratory Tests 02/12 0725 Chemistry Sodium Pending Potassium Pending Chloride Pending Carbon Dioxide Pending Anion Gap Pending BUN Pending Creatinine Pending BUN/Creatinine Ratio Pending Hematology CBC w Diff Pending WBC Pending RBC Pending Hgb Pending Hct Pending MCV Pending MCH Pending RDW Pending Plt Count Pending MPV Pending PUBS MCHC Pending
--- NOTE | 2017-02-12 09:48 | PN- Housestaff ---
GUERAALEXANDER CID 02/12/17 0948: Subjective Follow-up For: 1. Hyperosmolar hyperglycemic state 2. Sepsis 2/2 urilogical origin 3. BPH Subjective: This and had disturbed by Dr. Santos yesterday. This morning he is alert, awake and oriented. Hemodynamically stable. Eating his breakfast comfortably. He is feeling an urge to urinate but denies any pain. He is on CBI right now. Urine in the tube is clear. Review of Systems Constitutional: Reports: see HPI. Objective Last 24 Hrs of Vital Signs/I&O Vital Signs Date Time Temp Pulse Resp B/P B/P Pulse O2 O2 Flow FiO2 Mean Ox Delivery Rate 02/12 0843 82 118/70 02/12 0843 82 118/70 02/12 0746 98.5 75 20 124/78 97 Room Air 02/11 2200 97.9 74 20 114/60 96 Room Air 02/11 1800 98.3 85 20 110/60 93 Room Air 02/11 1547 96.5 82 18 108/60 97 02/11 1006 97.8 65 20 140/80 94 Intake & Output 02/12 1600 02/12 0800 02/12 0000 Intake Total 220 500 Output Total 2900 1100 Balance -2680 -600 Intake, IV 120 400 Intake, Oral 100 100 Output, Urine 2900 1100 Current Medications: Current Medications Sig/Claire Start time Last Medication Dose Route Stop Time Status Admin Acetaminophen 325 MG Q6 PRN 02/05 1500 AC PO Ampicillin 2,000 MG Q8H 02/06 1800 AC 02/12 Sodium Chloride 100 ML IV 0224 Atorvastatin Calcium 5 MG 1700 02/05 1800 AC 02/11 PO 1729 Dextrose/Sodium 1,000 ML Q10H 02/11 0000 DC 02/10 Chloride IV 2346 Insulin Aspart 0 AT BEDTIME 02/11 2200 AC 02/11 SC 2058 Insulin Aspart 0 TIDAC 02/11 1700 AC 02/12 SC 0840 Insulin Aspart 0 Q4 02/11 1000 DC 02/11 SC 1002 Insulin Detemir 12 UNITS BID 02/11 2200 AC 02/12 SC 0841 Insulin Detemir 6 UNITS BID 02/10 2200 DC 02/10 SC 2041 Lisinopril 10 MG DAILY 02/06 1429 AC 02/12 PO 0843 Metformin HCl 500 MG 0800,1700 02/12 1700 UNVr PO Ondansetron HCl 4 MG .STK-MED ONE 02/11 1249 DC IM 02/11 1250 Tamsulosin HCl 0.4 MG DAILY 02/06 1000 AC 02/12 PO 0843 Last 24 Hrs of Lab/Marck Results Last 24 Hrs of Labs/Mics: Laboratory Tests 02/12/17 0725: Anion Gap 6, Estimated GFR > 60, BUN/Creatinine Ratio 7.5, CBC w Diff NO MAN DIFF REQ, RBC 3.59 L, MCV 93.1, MCH 32.0 H, RDW 13.2, MPV 7.5, Gran % 72.2, Lymphocytes % 19.8 L, Monocytes % 5.2, Eosinophils % 2.3, Basophils % 0.5, Absolute Granulocytes 4.4, Absolute Lymphocytes 1.2, Absolute Monocytes 0.3, Absolute Eosinophils 0.1, Absolute Basophils 0, PUBS MCHC 34.4 Assessment/Plan Assessment: Mr. Upton is a 77-year-old gentleman with past medical history of hypertension, HLD, and BPH who presented to the emergency department on 02/05/2017 complaining of urinary incontinence, polyuria and polydipsia. Was initially admitted to the ICU, transferred to on 02/06. Assesment and Plan 1. Hyperosmolar hyperglycemic state Blood sugar 210 this morning * Will continue with Levemir 12 units BID, NovoLog insulin sliding scale before each meal and at bedtime * Added metformin to his regimen today * Nutrition consult appreciated 2. Sepsis of urological origin/BPH * Status post TURP. Postop day # 1 * Will continue with Ampicillin for now and change to amoxicillin on discharge * on CBI right now * Urine in Love catheter tube is clear 3. MARCO * Resolved 4. Incidental findings on CT abdomen and pelvis * Indeterminate cystic lesion within the tail of the pancreas with calcifications. pseudocyst versus a cystic pancreatic neoplasm. * Indeterminant liver lesion, cyst. * Small exophytic cyst at the lower pole the right kidney. * MRI abdomen was done without contrast yesterday. Same findings. Evaluation was limited due to lack of IV contrast * Plan is for open MRI with contrast as an outpatient Diet consistent carbohydrate 2 DVT prophylaxis Alps because of thrombocytopenia FULL CODE Problem List: 1. Diabetic hyperosmolar non-ketotic state 2. BPH (benign prostatic hyperplasia) Pain Ratin Pain Location: none Pain Goal: Remain pain free Pain Plan: tylenol Tomorrow's Labs & Rationales: CBC,BEP DVT/Prophylaxis: mechanical TOMA GUNTER MD 02/12/17 1046: Objective Physical Exam General Appearance: Alert, Oriented X3, Cooperative, No Acute Distress
--- NOTE | 2017-02-12 12:15 | PN- Att Addend ---
Attending Addendum Attending Brief Note Patient sitting in the chair, sister at his side, did well with surgery yesterday or the Love catheter in place urine a little red. Complaining of a little discomfort with the Love catheter other changes on physical no fever. Tinea treatment as per consultants 24 TOTALS 02/12 0000 02/11 0000 Intake Total 1700 1780 Output Total 3050 3450 Balance -1350 -1670 Intake, IV 1600 260 Intake, Oral 100 1520 Number 0 Bowel Movements Output, Urine 3050 3450 Current Medications Sig/Claire Start time Last Medication Dose Route Stop Time Status Admin Acetaminophen 325 MG Q6 PRN 02/05 1500 AC PO Ampicillin 2,000 MG Q8H 02/06 1800 AC 02/12 Sodium Chloride 100 ML IV 1055 Atorvastatin Calcium 5 MG 1700 02/05 1800 AC 02/11 PO 1729 Dextrose/Sodium 1,000 ML Q10H 02/11 0000 DC 02/10 Chloride IV 2346 Insulin Aspart 0 AT BEDTIME 02/11 2200 02/11 IN 2058 Insulin Aspart 0 TIDAC 02/11 1700 AC 02/12 IN 0840 Insulin Aspart 0 Q4 02/11 1000 AZ 02/11 IN 1002 Insulin Detemir 12 UNITS BID 02/11 2200 02/12 IN 0841 Insulin Detemir 6 UNITS BID 02/10 2200 AZ 02/10 IN 2041 Lisinopril 10 MG DAILY 02/06 1429 AC 02/12 PO 0843 Metformin HCl 500 MG 0800,1700 02/12 1700 AC PO Ondansetron HCl 4 MG .STK-MED ONE 02/11 1249 DC IM 02/11 1250 Tamsulosin HCl 0.4 MG DAILY 02/06 1000 AC 02/12 PO 0843 Laboratory Tests 02/12/17 0725: Anion Gap 6, Estimated GFR > 60, BUN/Creatinine Ratio 7.5, CBC w Diff NO MAN DIFF REQ, RBC 3.59 L, MCV 93.1, MCH 32.0 H, RDW 13.2, MPV 7.5, Gran % 72.2, Lymphocytes % 19.8 L, Monocytes % 5.2, Eosinophils % 2.3, Basophils % 0.5, Absolute Granulocytes 4.4, Absolute Lymphocytes 1.2, Absolute Monocytes 0.3, Absolute Eosinophils 0.1, Absolute Basophils 0, PUBS MCHC 34.4 02/11/17 0630: PT 11.2, INR 1.07, CBC w Diff NO MAN DIFF REQ, RBC 3.85 L, MCV 92.1, MCH 31.6 H, RDW 12.9, MPV 7.9, Gran % 56.3, Lymphocytes % 34.0, Monocytes % 6.3, Eosinophils % 3.1, Basophils % 0.3, Absolute Granulocytes 2.7, Absolute Lymphocytes 1.6, Absolute Monocytes 0.3, Absolute Eosinophils 0.1, Absolute Basophils 0, PUBS MCHC 34.3
--- NOTE | 2017-02-12 13:38 | PN- Urology ---
Surgical Brief Attending Note Brief Attending Note: resting comfortably. vss afbrile. abd soft. cbi off for 2 hours with bloody urine and clot: plan is to resume CBI today and likely continue for few days. Will need to stay until CBI clear.
--- NOTE | 2017-02-12 14:17 | PN- Infect Dx ---
Subjective Subjective: No fever. Bloody urine and clots, resumed CBI. Feels weak. Poor appetite. Review of Systems Comments: 12 points reviewed as noted, otherwise negative. Objective Last 24 Hrs of Vital Signs/I&O Vital Signs Date Time Temp Pulse Resp B/P B/P Pulse O2 O2 Flow FiO2 Mean Ox Delivery Rate 02/12 0843 82 118/70 02/12 0843 82 118/70 02/12 0746 98.5 75 20 124/78 97 Room Air 02/11 2200 97.9 74 20 114/60 96 Room Air 02/11 1800 98.3 85 20 110/60 93 Room Air 02/11 1547 96.5 82 18 108/60 97 Intake & Output 02/12 1600 02/12 0800 02/12 0000 Intake Total 220 500 Output Total 2900 1100 Balance -2680 -600 Intake, IV 120 400 Intake, Oral 100 100 Output, Urine 2900 1100 Physical Exam Other Physical Findings: He appears comfortable in no acute distress HEENT AT/sclera anicteric Neck No KJVD Lungs are clear Abdomen is soft, nontender with positive bowel sounds Love catheter is in place Extr: no c/c Neuro: awake and alert Results Last 24 Hours of Lab Results: Laboratory Tests 02/12 0725 Chemistry Sodium (137 - 145 mmol/L) 137 Potassium (3.5 - 5.1 mmol/L) 4.2 Chloride (98 - 107 mmol/L) 105 Carbon Dioxide (22 - 30 mmol/L) 26 Anion Gap (5 - 16) 6 BUN (9 - 20 mg/dL) 6 L Creatinine (0.7 - 1.2 mg/dL) 0.8 Estimated GFR (>60 ml/min) > 60 BUN/Creatinine Ratio (7 - 25 %) 7.5 Hematology CBC w Diff NO MAN DIFF REQ WBC (4.8 - 10.8 /CUMM) 6.1 RBC (4.70 - 6.10 /CUMM) 3.59 L Hgb (14.0 - 18.0 G/DL) 11.5 L Hct (42 - 52 %) 33.5 L MCV (80.0 - 94.0 FL) 93.1 MCH (27.0 - 31.0 PG) 32.0 H RDW (11.5 - 14.5 %) 13.2 Plt Count (130 - 400 /CUMM) 101 L MPV (7.4 - 10.4 FL) 7.5 Gran % (42.2 - 75.2 %) 72.2 Lymphocytes % (20.5 - 51.1 %) 19.8 L Monocytes % (1.7 - 9.3 %) 5.2 Eosinophils % (0 - 5 %) 2.3 Basophils % (0.0 - 2.0 %) 0.5 Absolute Granulocytes (1.4 - 6.5 /CUMM) 4.4 Absolute Lymphocytes (1.2 - 3.4 /CUMM) 1.2 Absolute Monocytes (0.10 - 0.60 /CUMM) 0.3 Absolute Eosinophils (0.0 - 0.7 /CUMM) 0.1 Absolute Basophils (0.0 - 0.2 /CUMM) 0 PUBS MCHC (33.0 - 37.0 G/DL) 34.4 Last 24 Hours of Marck Results: : 17:[id number] YANICK: 02/06/17 STATUS: COMP RECD: 02/06/[address] [facility] [address]: BLOOD ENTR: 02/06/17 [facility] DR: LYRIC CHAUHAN, [place] SPDESC: 2ND/VENOUS ORDERED: BLOOD CULTURE Procedure Result > BLOOD CULTURE REPORT Final 02/11/17 NO GROWTH AFTER FIVE DAYS Recent Imaging Studies: N/A Assessment/Plan Impression: 77-year-old gentleman with past medical history of hypertension, HLD, and BPH, DM2 admitted on 02/05/2017. Transient enterococcal bacteremia, felt to be of urologic origin, with his urinary complaints of frequency, incontinence and retention; repeat 02/06 NGTD. BPH s/p TURP; hematuria Nephrolithiasis Suggestion: 1. F/u urology recom. 2. Continue iv Ampicillin D #6 while inpatient, plan change to Amoxicillin 500 mg po q 8 hours to complete a 10-14 day course (once ready for discharge).
[2017-02-12 14:31] VITALS: BP 112/70
[2017-02-12 22:35] VITALS: BP 120/60
[2017-02-13 06:52] VITALS: BP 120/60
[2017-02-13 08:10] LABS: ABSOLUTE BASOPHIL COUNT 0 /CUMM (0.0-0.2); ABSOLUTE EOSINOPHIL COUNT 0.2 /CUMM (0.0-0.7); ABSOLUTE GRANULOCYTE CT 3.6 /CUMM (1.4-6.5); ABSOLUTE LYMPH COUNT 1.9 /CUMM (1.2-3.4); ABSOLUTE MONOCYTE COUNT 0.4 /CUMM (0.10-0.60); BASOPHIL % 0.4 % (0.0-2.0); EOSINOPHIL % 2.6 % (0-5); GRANULOCYTE % 59.4 % (42.2-75.2); HEMATOCRIT 29.5 % (42-52); MEAN CORPUSCULAR HGB 31.8 PG (27.0-31.0); MEAN CORPUSCULAR HGB CONC 34.4 G/DL (33.0-37.0); MEAN CORPUSCULAR VOLUME 92.3 FL (80.0-94.0); MEAN PLATELET VOLUME 7.9 FL (7.4-10.4); PLATELET COUNT 106 /CUMM (130-400); RBC DISTRIBUTION WIDTH 13.2 % (11.5-14.5)
--- NOTE | 2017-02-13 08:27 | PN- Housestaff ---
Subjective Follow-up For: 1. Hyperosmolar hyperglycemic state 2. Sepsis 2/2 urilogical origin 3. BPH Subjective: Patient seen and examined at bedside. Sitting comfortably in chair with no complaints other than soreness in the back. No events reported overnight. Denies any f/c, dyspnea, chest pain, palpitations, dizziness/lightheadedness, abdominal pain, n/v/c/d. Review of Systems Constitutional: Reports: see HPI. Objective Last 24 Hrs of Vital Signs/I&O Vital Signs Date Time Temp Pulse Resp B/P B/P Pulse O2 O2 Flow FiO2 Mean Ox Delivery Rate 02/13 0652 98.1 70 20 120/60 97 Room Air 02/12 2235 99.0 79 20 120/60 97 Room Air 02/12 1431 98.1 90 20 112/70 95 Room Air 02/12 0843 82 118/70 02/12 0843 82 118/70 Intake & Output 02/13 1600 02/13 0800 02/13 0000 Intake Total 260 Output Total 500 Balance -500 260 Intake, IV 10 Intake, Oral 250 Output, Urine 500 Physical Exam General Appearance: Alert, Cooperative, No Acute Distress Other Physical Findings: Cardiovascular: Regular Rate, No Murmurs Lungs: Clear to Auscultation Abdomen: Normal Bowel Sounds, Soft, No Tenderness Neurological: Normal Speech, Strength at 5/5 X4 Ext, Sensation Intact, Cranial Nerves 3-12 NL Extremities: No Edema Current Medications: Current Medications Sig/Claire Start time Last Medication Dose Route Stop Time Status Admin Acetaminophen 325 MG Q6 PRN 02/05 1500 AC PO Ampicillin 2,000 MG Q8H 02/06 1800 AC 02/13 Sodium Chloride 100 ML IV 0219 Atorvastatin Calcium 5 [place] [address]/05 1800 AC 02/12 PO 1746 Insulin Aspart 0 AT BEDTIME 02/11 2200 AC 02/12 SC 2102 Insulin Aspart 0 TIDAC 02/11 1700 AC 02/12 SC 1745 Insulin Detemir 12 UNITS BID 02/11 2200 AC 02/12 SC 2102 Lisinopril 10 MG DAILY 02/06 1429 AC 02/12 PO 0843 Metformin HCl 500 MG 0800,1700 02/12 1700 AC 02/12 PO 1744 Tamsulosin HCl 0.4 MG DAILY 02/06 1000 AC 02/12 PO 0843 Last 24 Hrs of Lab/Marck Results Last 24 Hrs of Labs/Mics: Laboratory Tests 02/13/17 0630: CBC w Diff NO MAN DIFF REQ, RBC 3.20 L, MCV 92.3, MCH 31.8 H, RDW 13.2, MPV 7.9, Gran % 59.4, Lymphocytes % 31.0, Monocytes % 6.6, Eosinophils % 2.6, Basophils % 0.4, Absolute Granulocytes 3.6, Absolute Lymphocytes 1.9, Absolute Monocytes 0.4, Absolute Eosinophils 0.2, Absolute Basophils 0, PUBS MCHC 34.4 Assessment/Plan Assessment: Mr. Upton is a 77-year-old gentleman with past medical history of hypertension, HLD, and BPH who presented to the emergency department on 02/05/2017 complaining of urinary incontinence, polyuria and polydipsia. Was initially admitted to the ICU, transferred to on 02/06. 1. Hyperosmolar hyperglycemic state Blood sugar 210 this morning * Continue with Levemir 12 units BID, NovoLog insulin sliding scale before each meal and at bedtime * Cont metformin to his regimen today * Appreciate nutrition consult 2. Sepsis of urological origin/BPH * Cont CBI s/p TURP. * Continue Ampicillin and change to amoxicillin on discharge * Urine in Love catheter tube is clear 3. MARCO * Resolved 4. Incidental findings on CT abdomen and pelvis * Indeterminate cystic lesion within the tail of the pancreas with calcifications. pseudocyst versus a cystic pancreatic neoplasm. * Indeterminant liver lesion, cyst. * Small exophytic cyst at the lower pole the right kidney. * MRI abdomen was done without contrast yesterday. Same findings. Evaluation was limited due to lack of IV contrast * Plan is for open MRI with contrast as an outpatient Diet consistent carbohydrate 2 DVT prophylaxis Alps because of thrombocytopenia FULL CODE Problem List: 1. BPH (benign prostatic hyperplasia) 2. Sepsis 3. DKA (diabetic ketoacidoses) 4. Hyperkaluria 5. Diabetic hyperosmolar non-ketotic state Pain Ratin Pain Location: 0 Pain Goal: Remain pain free Pain Plan: Mild pathway Tomorrow's Labs & Rationales: BEP Tomorrow's Labs & Rationales: BEP
--- NOTE | 2017-02-13 11:36 | PN- Infect Dx ---
Subjective Subjective: No events reported overnight. Denies any fever, SOB, chest pain, palpitations, dizziness, abdominal pain, or n/v. Continues w/ CBI. Poor iv access. Review of Systems Comments: 12 points reviewed as noted, otherwise negative. Objective Last 24 Hrs of Vital Signs/I&O Vital Signs Date Time Temp Pulse Resp B/P B/P Pulse O2 O2 Flow FiO2 Mean Ox Delivery Rate 02/13 919 104 110/60 02/13 0918 104 110/60 02/13 0652 98.1 70 20 120/60 97 Room Air 02/12 2235 99.0 79 20 120/60 97 Room Air 02/12 1431 98.1 90 20 112/70 95 Room Air Intake & Output 02/13 1600 02/13 0800 02/13 0000 Intake Total 260 Output Total 500 Balance -500 260 Intake, IV 10 Intake, Oral 250 Output, Urine 500 Physical Exam Other Physical Findings: Comfortable in no acute distress HEENT AT/sclera anicteric Neck No JVD/VINAY Lungs are clear Abdomen is soft, nontender with positive bowel sounds Love catheter is in place Extr: no c/c/e Neuro: awake and alert, normal speech Results Last 24 Hours of Lab Results: Laboratory Tests 02/13 06 Hematology CBC w Diff NO MAN DIFF REQ WBC (4.8 - 10.8 /CUMM) 6.0 RBC (4.70 - 6.10 /CUMM) 3.20 L Hgb (14.0 - 18.0 G/DL) 10.1 L Hct (42 - 52 %) 29.5 L MCV (80.0 - 94.0 FL) 92.3 MCH (27.0 - 31.0 PG) 31.8 H RDW (11.5 - 14.5 %) 13.2 Plt Count (130 - 400 /CUMM) 106 L MPV (7.4 - 10.4 FL) 7.9 Gran % (42.2 - 75.2 %) 59.4 Lymphocytes % (20.5 - 51.1 %) 31.0 Monocytes % (1.7 - 9.3 %) 6.6 Eosinophils % (0 - 5 %) 2.6 Basophils % (0.0 - 2.0 %) 0.4 Absolute Granulocytes (1.4 - 6.5 /CUMM) 3.6 Absolute Lymphocytes (1.2 - 3.4 /CUMM) 1.9 Absolute Monocytes (0.10 - 0.60 /CUMM) 0.4 Absolute Eosinophils (0.0 - 0.7 /CUMM) 0.2 Absolute Basophils (0.0 - 0.2 /CUMM) 0 PUBS MCHC (33.0 - 37.0 G/DL) 34.4 Last 24 Hours of Marck Results: n/a Recent Imaging Studies: n/a Assessment/Plan Impression: 77-year-old gentleman with past medical history of hypertension, HLD, and BPH, DM2 admitted on 02/05/2017. Transient enterococcal bacteremia, felt to be of urologic origin, with his urinary complaints of frequency, incontinence and retention; repeat BC 02/06 NGTD. BPH s/p TURP; hematuria requiring CBI Nephrolithiasis Suggestion: 1. F/u urology recom. 2. Continue iv Ampicillin D #8 while inpatient, plan change to Amoxicillin 500 mg po q 8 hours to complete a 14 day course (once ready for discharge or no iv access). 3. Trend CBC/BMP 02/15. 4. BC x2 off antibiotics as outpatient; will require OP f/u Dr. Dominique.
--- NOTE | 2017-02-13 13:48 | PN- Pulmonary ---
Subjective HPI/Critical Care Issues: Patient seen and examined at bedside. Sitting comfortably in chair with no complaints other than soreness in the back. No events reported overnight. Denies any f/c, dyspnea, chest pain, palpitations, dizziness/lightheadedness, abdominal pain, n/v/c/d. Review of Systems Constitutional: Reports: see HPI. Objective Current Medications: Current Medications Sig/Claire Start time Last Medication Dose Route Stop Time Status Admin Acetaminophen 325 MG Q6 PRN 02/05 1500 AC PO Ampicillin 2,000 MG Q8H 02/06 1800 AC 02/13 Sodium Chloride 100 ML IV 0916 Atorvastatin Calcium 5 MG 1700 02/05 1800 AC 02/12 PO 1746 Insulin Aspart 0 TIDAC 02/13 1215 AC 02/13 SC 1221 Insulin Aspart 0 AT BEDTIME 02/11 2200 AC 02/12 SC 2102 Insulin Aspart 0 TIDAC 02/11 1700 DC 02/13 SC 0917 Insulin Detemir 14 UNITS BID 02/13 2200 AC SC Insulin Detemir 12 UNITS BID 02/11 2200 DC 02/13 SC 0916 Lidocaine 1 PAT DAILY PRN 02/13 1015 AC EXT Lisinopril 10 MG DAILY 02/06 1429 AC 02/13 PO 0919 Metformin HCl 500 MG 0800,1700 02/12 1700 AC 02/13 PO 0917 Nicotine 7 MG DAILY PRN 02/13 1015 CAN TOP Tamsulosin HCl 0.4 MG DAILY 02/06 1000 AC 02/13 PO 0918 Vital Signs & I&O Last 24 Hrs of Vitals and I&O: Vital Signs Date Time Temp Pulse Resp B/P B/P Pulse O2 O2 Flow FiO2 Mean Ox Delivery Rate 02/13 919 104 110/60 02/13 0918 104 110/60 02/13 0652 98.1 70 20 120/60 97 Room Air 02/12 2235 99.0 79 20 120/60 97 Room Air 02/12 1431 98.1 90 20 112/70 95 Room Air Intake & Output 02/13 1600 02/13 0800 02/13 0000 Intake Total 260 Output Total 500 Balance -500 260 Intake, IV 10 Intake, Oral 250 Output, Urine 500 Laboratory Tests 02/13 02/12 0630 0725 Chemistry Sodium (137 - 145 mmol/L) 137 Potassium (3.5 - 5.1 mmol/L) 4.2 Chloride (98 - 107 mmol/L) 105 Carbon Dioxide (22 - 30 mmol/L) 26 Anion Gap (5 - 16) 6 BUN (9 - 20 mg/dL) 6 L Creatinine (0.7 - 1.2 mg/dL) 0.8 Estimated GFR (>60 ml/min) > 60 BUN/Creatinine Ratio (7 - 25 %) 7.5 Hematology CBC w Diff NO MAN DIFF REQ NO MAN DIFF REQ WBC (4.8 - 10.8 /CUMM) 6.0 6.1 RBC (4.70 - 6.10 /CUMM) 3.20 L 3.59 L Hgb (14.0 - 18.0 G/DL) 10.1 L 11.5 L Hct (42 - 52 %) 29.5 L 33.5 L MCV (80.0 - 94.0 FL) 92.3 93.1 MCH (27.0 - 31.0 PG) 31.8 H 32.0 H RDW (11.5 - 14.5 %) 13.2 13.2 Plt Count (130 - 400 /CUMM) 106 L 101 L MPV (7.4 - 10.4 FL) 7.9 7.5 Gran % (42.2 - 75.2 %) 59.4 72.2 Lymphocytes % (20.5 - 51.1 %) 31.0 19.8 L Monocytes % (1.7 - 9.3 %) 6.6 5.2 Eosinophils % (0 - 5 %) 2.6 2.3 Basophils % (0.0 - 2.0 %) 0.4 0.5 Absolute Granulocytes (1.4 - 6.5 /CUMM) 3.6 4.4 Absolute Lymphocytes (1.2 - 3.4 /CUMM) 1.9 1.2 Absolute Monocytes (0.10 - 0.60 /CUMM) 0.4 0.3 Absolute Eosinophils (0.0 - 0.7 /CUMM) 0.2 0.1 Absolute Basophils (0.0 - 0.2 /CUMM) 0 0 PUBS MCHC (33.0 - 37.0 G/DL) 34.4 34.4 Impression/Plan Impression/Plan Impression/Plan: Physical Exam General Appearance: Alert, Cooperative, No Acute Distress Other Physical Findings: Cardiovascular: Regular Rate, No Murmurs Lungs: Clear to Auscultation Abdomen: Normal Bowel Sounds, Soft, No Tenderness Neurological: Normal Speech, Strength at 5/5 X4 Ext, Sensation Intact, Cranial Nerves 3-12 NL Extremities: No Edema IMP 1. Hyperosmolar hyperglycemic state 2. Sepsis 2/2 urilogical origin 3. BPH with UOO on bladder irritagieon 4. Cystic lesion in the pancreas needs out pt eval REC COnt insulin and other meds Cont abx per ID Follow up as out pt for pancreatic lesions Call urology for further plan for his bladder irrigation
--- NOTE | 2017-02-13 14:07 | PN- Diabetes ---
Assessment/Plan Assessment: Patient came into the hospital with uncontrolled diabetes, hyper glycemic hyperosmolar state, and was found to have sepsis with enterococcus. He has been placed on Unasyn for enterococcus sensitive to ampicillin. The CT scan of abdomen and pelvis shows evidence of chronic pancreatitis which could contribute to the onset of his diabetes.. Patient underwent TURP. He is eating diabetic diet. Currently, he is on Levemir 12 units twice a day, Novolog coverage before meals and Novolog coverage at bedtime and metformin 500 mg twice a day. His FSGs were 210, 233, 272, 251, 193 and 309. Plan: 1. increase Levemir to 14 units twice a day; 2. increase Novolog coverage before meals--detail see the insulin order; 3. continue the current Novolog coverage at bedtime; 4. monitor FSGs. will follow. Inpatient Diabetes Orders Before Each Meal: Bolus Insulin: Novolog < 80 mg/dl: no coverage 80-100 mg/dl: 6 units 101-120 mg/dl: 6 units 121-150 mg/dl: 6 units 151-200 mg/dl: 8 units 201-250 mg/dl: 10 units 251-300 mg/dl: 11 units 301-350 mg/dl: 12 units 351-400 mg/dl: 13 units > 400 mg/dl: 14 units Subjective Subjective: Glucose level hasn't been controlled. Objective Last 24 Hrs of Vital Signs/I&O Vital Signs Date Time Temp Pulse Resp B/P B/P Pulse O2 O2 Flow FiO2 Mean Ox Delivery Rate 02/13 0919 104 110/60 02/13 0918 104 110/60 02/13 0652 98.1 70 20 120/60 97 Room Air 02/12 2235 99.0 79 20 120/60 97 Room Air 02/12 1431 98.1 90 20 112/70 95 Room Air Intake & Output 02/13 1600 02/13 0800 02/13 0000 Intake Total 260 Output Total 500 Balance -500 260 Intake, IV 10 Intake, Oral 250 Output, Urine 500 Findings Pertinent Lab/Marck Results: Laboratory Tests 02/13 630 Hematology CBC w Diff NO MAN DIFF REQ WBC (4.8 - 10.8 /CUMM) 6.0 RBC (4.70 - 6.10 /CUMM) 3.20 L Hgb (14.0 - 18.0 G/DL) 10.1 L Hct (42 - 52 %) 29.5 L MCV (80.0 - 94.0 FL) 92.3 MCH (27.0 - 31.0 PG) 31.8 H RDW (11.5 - 14.5 %) 13.2 Plt Count (130 - 400 /CUMM) 106 L MPV (7.4 - 10.4 FL) 7.9 Gran % (42.2 - 75.2 %) 59.4 Lymphocytes % (20.5 - 51.1 %) 31.0 Monocytes % (1.7 - 9.3 %) 6.6 Eosinophils % (0 - 5 %) 2.6 Basophils % (0.0 - 2.0 %) 0.4 Absolute Granulocytes (1.4 - 6.5 /CUMM) 3.6 Absolute Lymphocytes (1.2 - 3.4 /CUMM) 1.9 Absolute Monocytes (0.10 - 0.60 /CUMM) 0.4 Absolute Eosinophils (0.0 - 0.7 /CUMM) 0.2 Absolute Basophils (0.0 - 0.2 /CUMM) 0 PUBS MCHC (33.0 - 37.0 G/DL) 34.4
[2017-02-13 14:20] VITALS: BP 120/62
[2017-02-13 21:49] VITALS: BP 94/40
[2017-02-13 22:50] VITALS: BP 116/50
[2017-02-14 07:47] VITALS: BP 120/54
--- NOTE | 2017-02-14 08:16 | PN- Housestaff ---
Subjective Follow-up For: 1. Hyperosmolar hyperglycemic state 2. Sepsis 2/2 urilogical origin 3. BPH Subjective: Patient seen and examined. He is seen standing up at bedside. He appears to be in no acute distress. His whom is seated at bedside is up to date about his clinical condition and has no further questions at this time. He reports sleeping well last night and has no new subjective complaints. Additionally he denies any fever, chills, chest pain, shortness of breath, nausea, vomiting, diarrhea. No overnight events reported. Review of Systems Constitutional: Reports: see HPI. Objective Last 24 Hrs of Vital Signs/I&O Vital Signs Date Time Temp Pulse Resp B/P B/P Pulse O2 O2 Flow FiO2 Mean Ox Delivery Rate 02/14 1424 98.2 80 20 140/80 96 02/14 0919 84 140/80 02/14 0919 84 140/80 02/14 0747 97.4 71 20 120/54 97 Room Air 02/13 2250 116/50 02/13 2149 99.0 79 20 94/40 94 Intake & Output 02/14 1600 02/14 0800 02/14 0000 Intake Total 600 600 Output Total 500 1150 Balance 100 -1150 600 Intake, Oral 600 600 Output, Urine 500 1150 Physical Exam General Appearance: Alert, Oriented X3, Cooperative, No Acute Distress Other Physical Findings: General- well developed, well nourished obese elderly caucasain man in no acute distress HEENT- NCAT, PERRL, EOMI, anicteric sclera CVS- S1, S2 w/o m/g/r Resp- CTA bilaterally GI- Soft, obese, nontender, nondistended, bowel sounds intact - Love catheter with CBI intact place draining a light red/pink/yellow urine with small clots Neuro- Awake and alert, CN II - XII grossly intact Ext- normal pulses, no cyanosis/clubbing/edema Current Medications: Current Medications Sig/Claire Start time Last Medication Dose Route Stop Time Status Admin Acetaminophen 325 MG Q6 PRN 02/05 1500 AC PO Ampicillin 2,000 MG Q8H 02/06 1800 DC 02/14 Sodium Chloride 100 ML IV 0055 Atorvastatin Calcium 5 MG 1700 02/05 1800 AC 02/13 PO 1724 Insulin Aspart 0 TIDAC 02/13 1215 AC 02/14 SC 1213 Insulin Aspart 0 AT BEDTIME 02/11 2200 AC 02/12 SC 2102 Insulin Detemir 14 UNITS BID 02/13 2200 AC 02/14 SC 0910 Lidocaine 1 PAT DAILY PRN 02/13 1015 AC EXT Lisinopril 10 MG DAILY 02/06 1429 AC 02/14 PO 0919 Metformin HCl 500 MG 0800,1700 02/12 1700 AC 02/14 PO 0911 Tamsulosin HCl 0.4 MG DAILY 02/06 1000 AC 02/14 PO 0919 Assessment/Plan Assessment: Mr. Upton is a 77-year-old gentleman with past medical history of hypertension, HLD, and BPH who presented to the emergency department on 02/05/2017 complaining of urinary incontinence, polyuria and polydipsia. Was initially admitted to the ICU, transferred to on 02/06. 1. Hyperosmolar hyperglycemic state * Continue with Levemir 12 units BID, NovoLog insulin sliding scale before each meal and at bedtime * Cont metformin to his regimen today * Appreciate nutrition consult 2. Sepsis of urological origin/BPH * Cont CBI s/p TURP * Continue Ampicillin and change to amoxicillin on discharge * Urine in Love catheter tube is clear 3. MARCO * Resolved 4. Incidental findings on CT abdomen and pelvis * Indeterminate cystic lesion within the tail of the pancreas with calcifications. pseudocyst versus a cystic pancreatic neoplasm. * Indeterminant liver lesion, cyst. * Small exophytic cyst at the lower pole the right kidney. * MRI abdomen was done without contrast yesterday. Same findings. Evaluation was limited due to lack of IV contrast * Plan is for open MRI with contrast as an outpatient Diet consistent carbohydrate 2 DVT prophylaxis Alps because of thrombocytopenia FULL CODE Problem List: 1. BPH (benign prostatic hyperplasia) Pain Ratin Pain Location: None Pain Goal: Remain pain free Pain Plan: See assessment Tomorrow's Labs & Rationales: CBC - hemoglobin drop
--- NOTE | 2017-02-14 09:15 | PN- Pulmonary ---
Subjective HPI/Critical Care Issues: Doing better Continuous bladder irrigation his ongoing Has small amount of blood clots noted Afebrile His Accu-Cheks since last evening has been relatively stable less than 200 Objective Current Medications: Current Medications Sig/Claire Start time Last Medication Dose Route Stop Time Status Admin Acetaminophen 325 MG Q6 PRN 02/05 1500 AC PO Ampicillin 2,000 MG Q8H 02/06 1800 DC 02/14 Sodium Chloride 100 ML IV 0055 Atorvastatin Calcium 5 MG 1700 02/05 1800 AC 02/13 PO 1724 Insulin Aspart 0 TIDAC 02/13 1215 AC 02/13 SC 1724 Insulin Aspart 0 AT BEDTIME 02/11 2200 AC 02/12 SC 2102 Insulin Aspart 0 TIDAC 02/11 1700 DC 02/13 SC 0917 Insulin Detemir 14 UNITS BID 02/13 2200 AC 02/13 SC 2027 Insulin Detemir 12 UNITS BID 02/11 2200 DC 02/13 SC 0916 Lidocaine 1 PAT DAILY PRN 02/13 1015 AC EXT Lisinopril 10 MG DAILY 02/06 1429 AC 02/13 PO 0919 Metformin HCl 500 MG 0800,1700 02/12 1700 AC 02/13 PO 1724 Nicotine 7 MG DAILY PRN 02/13 1015 CAN TOP Tamsulosin HCl 0.4 MG DAILY 02/06 1000 AC 02/13 PO 0918 Vital Signs & I&O Last 24 Hrs of Vitals and I&O: Vital Signs Date Time Temp Pulse Resp B/P B/P Pulse O2 O2 Flow FiO2 Mean Ox Delivery Rate 02/14 0747 97.4 71 20 120/54 97 Room Air 02/13 2250 116/50 02/13 2149 99.0 79 20 94/40 94 02/13 1420 98.7 66 20 120/62 96 02/13 0919 104 110/60 02/13 0918 104 110/60 Intake & Output 02/14 1600 02/14 0800 02/14 0000 Intake Total 600 Output Total 1150 Balance -1150 600 Intake, Oral 600 Output, Urine 1150 Laboratory Tests 02/13 630 Hematology CBC w Diff NO MAN DIFF REQ WBC (4.8 - 10.8 /CUMM) 6.0 RBC (4.70 - 6.10 /CUMM) 3.20 L Hgb (14.0 - 18.0 G/DL) 10.1 L Hct (42 - 52 %) 29.5 L MCV (80.0 - 94.0 FL) 92.3 MCH (27.0 - 31.0 PG) 31.8 H RDW (11.5 - 14.5 %) 13.2 Plt Count (130 - 400 /CUMM) 106 L MPV (7.4 - 10.4 FL) 7.9 Gran % (42.2 - 75.2 %) 59.4 Lymphocytes % (20.5 - 51.1 %) 31.0 Monocytes % (1.7 - 9.3 %) 6.6 Eosinophils % (0 - 5 %) 2.6 Basophils % (0.0 - 2.0 %) 0.4 Absolute Granulocytes (1.4 - 6.5 /CUMM) 3.6 Absolute Lymphocytes (1.2 - 3.4 /CUMM) 1.9 Absolute Monocytes (0.10 - 0.60 /CUMM) 0.4 Absolute Eosinophils (0.0 - 0.7 /CUMM) 0.2 Absolute Basophils (0.0 - 0.2 /CUMM) 0 PUBS MCHC (33.0 - 37.0 G/DL) 34.4 Impression/Plan Impression/Plan Impression/Plan: Physical Exam General Appearance: Alert, Cooperative, No Acute Distress Other Physical Findings: Cardiovascular: Regular Rate, No Murmurs Lungs: Clear to Auscultation Abdomen: Normal Bowel Sounds, Soft, No Tenderness Neurological: Normal Speech, Strength at 5/5 X4 Ext, Sensation Intact, Cranial Nerves 3-12 NL Extremities: No Edema IMP 1. Hyperosmolar hyperglycemic state, now resolved 2. Sepsis 2/2 urilogical origin on antibiotics 3. BPH with UOO on bladder irritagion with on and off blood clots and hematuria 4. Cystic lesion in the pancreas needs out pt eval REC COnt insulin and other meds Cont abx per ID Follow up as out pt for pancreatic lesions Continue CBI Continue to follow fingerstick glucose
--- NOTE | 2017-02-14 10:18 | PN- Diabetes ---
Assessment/Plan Assessment: Patient came into the hospital with uncontrolled diabetes, hyper glycemic hyperosmolar state, and was found to have sepsis with enterococcus. He has been placed on Unasyn for enterococcus sensitive to ampicillin. The CT scan of abdomen and pelvis shows evidence of chronic pancreatitis which could contribute to the onset of his diabetes.. Patient underwent TURP. He is eating diabetic diet. Currently, he is on Levemir 14 units twice a day, Novolog coverage before meals and Novolog coverage at bedtime and metformin 500 mg twice a day. His FSGs were 154, 199 and 167.. Plan: continue the current DM regimen for now; monitor FSGs. will follow. Inpatient Diabetes Orders Every 6 Hours: Bolus Insulin: e r Subjective Subjective: He has no special complaints this morning. Objective Last 24 Hrs of Vital Signs/I&O Vital Signs Date Time Temp Pulse Resp B/P B/P Pulse O2 O2 Flow FiO2 Mean Ox Delivery Rate 02/14 0919 84 140/80 02/14 0919 84 140/80 02/14 0747 97.4 71 20 120/54 97 Room Air 02/13 2250 116/50 02/13 2149 99.0 79 20 94/40 94 02/13 1420 98.7 66 20 120/62 96 Intake & Output 02/14 1600 02/14 0800 02/14 0000 Intake Total 600 Output Total 1150 Balance -1150 600 Intake, Oral 600 Output, Urine 1150
[2017-02-14 14:24] VITALS: BP 140/80
--- NOTE | 2017-02-14 16:46 | PN- Infect Dx ---
Subjective Subjective: No fever; feels overall better; on going CBI; small clots noted earlier today. Review of Systems Comments: 12 points reviewed as noted, otherwise negative Objective Last 24 Hrs of Vital Signs/I&O Vital Signs Date Time Temp Pulse Resp B/P B/P Pulse O2 O2 Flow FiO2 Mean Ox Delivery Rate 02/14 1424 98.2 80 20 140/80 96 02/14 0919 84 140/80 02/14 0919 84 140/80 02/14 0747 97.4 71 20 120/54 97 Room Air 02/13 2250 116/50 02/13 2149 99.0 79 20 94/40 94 Intake & Output 02/14 1600 02/14 0800 02/14 0000 Intake Total 600 600 Output Total 500 1150 Balance 100 -1150 600 Intake, Oral 600 600 Output, Urine 500 1150 Physical Exam Other Physical Findings: Comfortable in no acute distress HEENT AT/sclera anicteric Neck No JVD/VINAY Lungs are clear Abdomen is soft, nontender with positive bowel sounds Love in place/CBI/pink urine Extr: no c/c/e Neuro: awake and alert, normal speech Results Last 24 Hours of Lab Results: n/a Last 24 Hours of Marck Results: n/a Recent Imaging Studies: n/a Assessment/Plan Impression: 77-year-old gentleman with past medical history of hypertension, HLD, and BPH, DM2 admitted on 02/05/2017. Transient enterococcal bacteremia, felt to be of urologic origin, with his urinary complaints of frequency, incontinence and retention; repeat BC 02/06 NGTD. BPH s/p TURP; hematuria requiring CBI Nephrolithiasis Suggestion: 1. Received iv Ampicillin; changing to Amoxicillin 500 mg po q 8 hours in am in order to complete a 14 day course (5 more days). 2. Trend CBC/BMP 02/15. 3. BC x 2 off antibiotics as outpatient; will require OP f/u Dr. Dominique.
[2017-02-14 17:19] LABS: ABSOLUTE BASOPHIL COUNT 0.1 /CUMM (0.0-0.2); ABSOLUTE EOSINOPHIL COUNT 0.2 /CUMM (0.0-0.7); ABSOLUTE GRANULOCYTE CT 2.8 /CUMM (1.4-6.5); ABSOLUTE LYMPH COUNT 1.8 /CUMM (1.2-3.4); ABSOLUTE MONOCYTE COUNT 0.3 /CUMM (0.10-0.60); BASOPHIL % 1.1 % (0.0-2.0); GRANULOCYTE % 55.2 % (42.2-75.2); MEAN CORPUSCULAR HGB 30.9 PG (27.0-31.0); MEAN CORPUSCULAR HGB CONC 33.5 G/DL (33.0-37.0); MEAN CORPUSCULAR VOLUME 92.4 FL (80.0-94.0); MEAN PLATELET VOLUME 7.2 FL (7.4-10.4); PLATELET COUNT 145 /CUMM (130-400); RBC DISTRIBUTION WIDTH 13.4 % (11.5-14.5); RED BLOOD CELL CT 3.73 /CUMM (4.70-6.10); WHITE BLOOD CELL COUNT 5.1 /CUMM (4.8-10.8)
[2017-02-14 17:23] LABS: HEMATOCRIT 34.5 % (42-52)
[2017-02-14 21:18] VITALS: BP 142/74
[2017-02-15 07:40] VITALS: BP 122/72
[2017-02-15 08:17] LABS: ABSOLUTE BASOPHIL COUNT 0 /CUMM (0.0-0.2); ABSOLUTE EOSINOPHIL COUNT 0.1 /CUMM (0.0-0.7); ABSOLUTE GRANULOCYTE CT 2.7 /CUMM (1.4-6.5); ABSOLUTE LYMPH COUNT 1.6 /CUMM (1.2-3.4); ABSOLUTE MONOCYTE COUNT 0.2 /CUMM (0.10-0.60); BASOPHIL % 0.5 % (0.0-2.0); EOSINOPHIL % 2.5 % (0-5); GRANULOCYTE % 57.2 % (42.2-75.2); HEMATOCRIT 30.4 % (42-52); MEAN CORPUSCULAR HGB 31.7 PG (27.0-31.0); MEAN CORPUSCULAR HGB CONC 33.7 G/DL (33.0-37.0); MEAN CORPUSCULAR VOLUME 94.1 FL (80.0-94.0); MEAN PLATELET VOLUME 7.3 FL (7.4-10.4); PLATELET COUNT 115 /CUMM (130-400); RBC DISTRIBUTION WIDTH 12.9 % (11.5-14.5); RED BLOOD CELL CT 3.23 /CUMM (4.70-6.10); WHITE BLOOD CELL COUNT 4.6 /CUMM (4.8-10.8)
--- NOTE | 2017-02-15 10:14 | PN- Diabetes ---
Assessment/Plan Assessment: Patient came into the hospital with uncontrolled diabetes, hyper glycemic hyperosmolar state, and was found to have sepsis with enterococcus. He has been placed on Unasyn for enterococcus sensitive to ampicillin. The CT scan of abdomen and pelvis shows evidence of chronic pancreatitis which could contribute to the onset of his diabetes.. Patient underwent TURP. He is eating diabetic diet. Currently, he is on Levemir 14 units twice a day, Novolog coverage before meals and Novolog coverage at bedtime and metformin 500 mg twice a day. His FSGs were 167, 311, 164, 200 and 192. Plan: 1. increase Levemir to 16 units twice a day; 2. continue the current Novolog coverage before meals and Novolog coverage at bedtime; 3. continue metformin 500 mg twice a day; 4. monitor FSGs. 5. if partient is medically stable for discharge, the discharge plan for DM ---Levemir 30 units daily starting tomorrow ( Levemier 15 units x1 tonight as he will receive Levemir 16 units in the morning in hospital) ---Metformin 1000 mg twice a day ( with breakfast and with dinner); ---Glimepiride 2 mg twice a day ( right before breakfast and right before dinner) ---monitor FSGs x 3-4 times a day; --- f/u with Dr. Monterroso in the office after discharge. please call if there are any questions. Subjective Subjective: He probably will be going home soon. Objective Last 24 Hrs of Vital Signs/I&O Vital Signs Date Time Temp Pulse Resp B/P B/P Pulse O2 O2 Flow FiO2 Mean Ox Delivery Rate 02/15 0952 96 102/60 02/15 0952 96 102/60 02/15 0740 98.0 70 20 122/72 93 Room Air 02/148 97.9 78 20 142/74 96 02/14 1424 98.2 80 20 140/80 96 Intake & Output 02/15 1600 02/15 0800 02/15 0000 Intake Total 50 100 Output Total 2200 800 Balance -2150 -700 Intake, Oral 50 100 Output, Urine 2200 800 Findings Pertinent Lab/Marck Results: Laboratory Tests 02/15 02/14 0648 1700 Hematology CBC w Diff NO MAN DIFF REQ NO MAN DIFF REQ WBC (4.8 - 10.8 /CUMM) 4.6 L 5.1 RBC (4.70 - 6.10 /CUMM) 3.23 L 3.73 L Hgb (14.0 - 18.0 G/DL) 10.2 L 11.6 L Hct (42 - 52 %) 30.4 L 34.5 L MCV (80.0 - 94.0 FL) 94.1 H 92.4 MCH (27.0 - 31.0 PG) 31.7 H 30.9 RDW (11.5 - 14.5 %) 12.9 13.4 Plt Count (130 - 400 /CUMM) 115 L 145 MPV (7.4 - 10.4 FL) 7.3 L 7.2 L Gran % (42.2 - 75.2 %) 57.2 55.2 Lymphocytes % (20.5 - 51.1 %) 35.3 35.4 Monocytes % (1.7 - 9.3 %) 4.5 5.3 Eosinophils % (0 - 5 %) 2.5 3.0 Basophils % (0.0 - 2.0 %) 0.5 1.1 Absolute Granulocytes (1.4 - 6.5 /CUMM) 2.7 2.8 Absolute Lymphocytes (1.2 - 3.4 /CUMM) 1.6 1.8 Absolute Monocytes (0.10 - 0.60 /CUMM) 0.2 0.3 Absolute Eosinophils (0.0 - 0.7 /CUMM) 0.1 0.2 Absolute Basophils (0.0 - 0.2 /CUMM) 0 0.1 PUBS MCHC (33.0 - 37.0 G/DL) 33.7 33.5 02/13 0630 Hematology CBC w Diff NO MAN DIFF REQ WBC (4.8 - 10.8 /CUMM) 6.0 RBC (4.70 - 6.10 /CUMM) 3.20 L Hgb (14.0 - 18.0 G/DL) 10.1 L Hct (42 - 52 %) 29.5 L MCV (80.0 - 94.0 FL) 92.3 MCH (27.0 - 31.0 PG) 31.8 H RDW (11.5 - 14.5 %) 13.2 Plt Count (130 - 400 /CUMM) 106 L MPV (7.4 - 10.4 FL) 7.9 Gran % (42.2 - 75.2 %) 59.4 Lymphocytes % (20.5 - 51.1 %) 31.0 Monocytes % (1.7 - 9.3 %) 6.6 Eosinophils % (0 - 5 %) 2.6 Basophils % (0.0 - 2.0 %) 0.4 Absolute Granulocytes (1.4 - 6.5 /CUMM) 3.6 Absolute Lymphocytes (1.2 - 3.4 /CUMM) 1.9 Absolute Monocytes (0.10 - 0.60 /CUMM) 0.4 Absolute Eosinophils (0.0 - 0.7 /CUMM) 0.2 Absolute Basophils (0.0 - 0.2 /CUMM) 0 PUBS MCHC (33.0 - 37.0 G/DL) 34.4
[2017-02-15 14:13] VITALS: BP 118/69
--- NOTE | 2017-02-15 14:49 | PN- Housestaff ---
Subjective Follow-up For: 1. Hyperosmolar hyperglycemic state 2. Sepsis 2/2 urilogical origin 3. BPH s/p TURP Subjective: No overnight events. He is alert, awake and oriented. Hemodynamically stable. He is still on CBI. Urine in the bag is clear. He offers no complaints. Review of Systems Constitutional: Reports: see HPI. Objective Last 24 Hrs of Vital Signs/I&O Vital Signs Date Time Temp Pulse Resp B/P B/P Pulse O2 O2 Flow FiO2 Mean Ox Delivery Rate 02/15 1413 98.2 98 20 118/69 97 02/15 0952 96 102/60 02/15 0952 96 102/60 02/15 0740 98.0 70 20 122/72 93 Room Air 02/148 97.9 78 20 142/74 96 Intake & Output 02/15 1600 02/15 0800 02/15 0000 Intake Total 720 50 100 Output Total 700 2200 800 Balance 20 -2150 -700 Intake, IV 0 Intake, Oral 720 50 100 Number 1 Bowel Movements Output, Urine 700 2200 800 Physical Exam General Appearance: Alert, Oriented X3, Cooperative, No Acute Distress Neck: Supple Cardiovascular: Regular Rate Lungs: Clear to Auscultation Abdomen: Normal Bowel Sounds, Soft, No Tenderness Neurological: Normal Speech, Strength at 5/5 X4 Ext, Sensation Intact, Cranial Nerves 3-12 NL Extremities: No Edema Current Medications: Current Medications Sig/Claire Start time Last Medication Dose Route Stop Time Status Admin Acetaminophen 325 MG Q6 PRN 02/05 1500 AC PO Amoxicillin 500 MG TID 02/14 1834 AC 02/15 PO 0952 Atorvastatin Calcium 5 MG 1700 02/05 1800 AC 02/14 PO 1729 Insulin Aspart 0 TIDAC 02/13 1215 AC 02/15 SC 1209 Insulin Aspart 0 AT BEDTIME 02/11 2200 AC 02/12 SC 2102 Insulin Detemir 16 UNITS BID 02/15 1000 AC 02/15 SC 0952 Insulin Detemir 14 UNITS BID 02/13 2200 DC 02/14 SC 2131 Lidocaine 1 PAT DAILY PRN 02/13 1015 AC EXT Lisinopril 10 MG DAILY 02/06 1429 AC 02/15 PO 0952 Metformin HCl 500 MG 0800,1700 02/12 1700 AC 02/15 PO 0743 Patient Medication 1 ED .STK-MED ONE 02/15 1403 DC Teaching ED 02/15 1404 Tamsulosin HCl 0.4 MG DAILY 02/06 1000 AC 02/15 PO 0952 Last 24 Hrs of Lab/Marck Results Last 24 Hrs of Labs/Mics: Laboratory Tests 02/15/17 0648: CBC w Diff NO MAN DIFF REQ, RBC 3.23 L, MCV 94.1 H, MCH 31.7 H, RDW 12.9, MPV 7.3 L, Gran % 57.2, Lymphocytes % 35.3, Monocytes % 4.5, Eosinophils % 2.5, Basophils % 0.5, Absolute Granulocytes 2.7, Absolute Lymphocytes 1.6, Absolute Monocytes 0.2, Absolute Eosinophils 0.1, Absolute Basophils 0, PUBS MCHC 33.7 02/14/17 1700: CBC w Diff NO MAN DIFF REQ, RBC 3.73 L, MCV 92.4, MCH 30.9, RDW 13.4, MPV 7.2 L, Gran % 55.2, Lymphocytes % 35.4, Monocytes % 5.3, Eosinophils % 3.0, Basophils % 1.1, Absolute Granulocytes 2.8, Absolute Lymphocytes 1.8, Absolute Monocytes 0.3, Absolute Eosinophils 0.2, Absolute Basophils 0.1, PUBS MCHC 33.5 Assessment/Plan Assessment: Mr. Upton is a 77-year-old gentleman with past medical history of hypertension, HLD, and BPH who presented to the emergency department on 02/05/2017 complaining of urinary incontinence, polyuria and polydipsia. Was initially admitted to the ICU, transferred to on 02/06. 1. Hyperosmolar hyperglycemic state * Continue with Levemir 16 units BID, NovoLog insulin sliding scale before each meal and at bedtime * Continue metformin * Appreciate nutrition consult 2. Sepsis of urological origin/BPH * Continue amoxicillin * Urine in urine bag is clear * Discontinued CBI. We will take Love catheter out and give patient voiding trials 3. MARCO * Resolved 4. Incidental findings on CT abdomen and pelvis * Indeterminate cystic lesion within the tail of the pancreas with calcifications. pseudocyst versus a cystic pancreatic neoplasm. * Indeterminant liver lesion, cyst. * Small exophytic cyst at the lower pole the right kidney. * MRI abdomen was done without contrast yesterday. Same findings. Evaluation was limited due to lack of IV contrast * Plan is for open MRI with contrast as an outpatient Diet consistent carbohydrate 2 DVT prophylaxis Alps because of thrombocytopenia FULL CODE Problem List: 1. BPH (benign prostatic hyperplasia) 2. Sepsis Pain Ratin Pain Location: none Pain Goal: Pain 4 or less Pain Plan: tylenol Tomorrow's Labs & Rationales: bep DVT/Prophylaxis: mechanical
--- NOTE | 2017-02-15 16:54 | PN- Infect Dx ---
Subjective Subjective: No overnight events. Love/CBI discontinued around 1:30 pm. Did not void yet. No fever. Review of Systems Comments: 12 points reviewed as noted, otherwise negative. Objective Last 24 Hrs of Vital Signs/I&O Vital Signs Date Time Temp Pulse Resp B/P B/P Pulse O2 O2 Flow FiO2 Mean Ox Delivery Rate 02/15 1413 98.2 98 20 118/69 97 02/15 0952 96 102/60 02/15 0952 96 102/60 02/15 0740 98.0 70 20 122/72 93 Room Air 02/14 2118 97.9 78 20 142/74 96 Intake & Output 02/15 1600 02/15 0800 02/15 0000 Intake Total 720 50 100 Output Total 700 2200 800 Balance 20 -2150 -700 Intake, IV 0 Intake, Oral 720 50 100 Number 1 Bowel Movements Output, Urine 700 2200 800 Physical Exam Other Physical Findings: Comfortable in no acute distress HEENT AT/sclera anicteric Neck No JVD/VINAY Lungs are clear Abdomen is soft, nontender with positive bowel sounds Love removed Extr: no c/c/e Neuro: awake and alert, normal speech Results Last 24 Hours of Lab Results: Laboratory Tests 02/15 02/14 0648 1700 Hematology CBC w Diff NO MAN DIFF REQ NO MAN DIFF REQ WBC (4.8 - 10.8 /CUMM) 4.6 L 5.1 RBC (4.70 - 6.10 /CUMM) 3.23 L 3.73 L Hgb (14.0 - 18.0 G/DL) 10.2 L 11.6 L Hct (42 - 52 %) 30.4 L 34.5 L MCV (80.0 - 94.0 FL) 94.1 H 92.4 MCH (27.0 - 31.0 PG) 31.7 H 30.9 RDW (11.5 - 14.5 %) 12.9 13.4 Plt Count (130 - 400 /CUMM) 115 L 145 MPV (7.4 - 10.4 FL) 7.3 L 7.2 L Gran % (42.2 - 75.2 %) 57.2 55.2 Lymphocytes % (20.5 - 51.1 %) 35.3 35.4 Monocytes % (1.7 - 9.3 %) 4.5 5.3 Eosinophils % (0 - 5 %) 2.5 3.0 Basophils % (0.0 - 2.0 %) 0.5 1.1 Absolute Granulocytes (1.4 - 6.5 /CUMM) 2.7 2.8 Absolute Lymphocytes (1.2 - 3.4 /CUMM) 1.6 1.8 Absolute Monocytes (0.10 - 0.60 /CUMM) 0.2 0.3 Absolute Eosinophils (0.0 - 0.7 /CUMM) 0.1 0.2 Absolute Basophils (0.0 - 0.2 /CUMM) 0 0.1 PUBS MCHC (33.0 - 37.0 G/DL) 33.7 33.5 Last 24 Hours of Marck Results: n/a Recent Imaging Studies: n/a Assessment/Plan Impression: 77-year-old gentleman with past medical history of hypertension, HLD, and BPH, DM2 admitted on 02/05/2017. Transient enterococcal bacteremia, felt to be of urologic origin, with his urinary complaints of frequency, incontinence and retention; repeat BC 02/06 NGTD. BPH s/p TURP; hematuria requiring CBI until today; hematocrit dropped 4 points from 02/14 to 5/ Nephrolithiasis Suggestion: 1. Oral Amoxicillin 500 mg po q 8 hours in am in order to complete a 14 day course (4 more days). 2. Trend CBC. Voiding trial; PVR q 8 h; SC if PVR>350 cc; f/u urology recom. 3. BC x 2 off antibiotics as outpatient; will require OP f/u Dr. Dominique.
--- NOTE | 2017-02-15 19:49 | PN- Att Addend ---
Attending Addendum Attending Brief Note Patient feeling better, ambulating with his sister at the site, still has a Love catheter in urine is not as red vital signs are stable has no fever and no new changes on physical her will check with neurology to see when we can discontinue the catheter and check with ID the length of the antibiotic therapy. Depending on the answers to my able to start disposition plans in the morning. Intake & Output 02/15 1600 02/15 0400 02/14 1600 02/14 0400 02/13 1600 02/13 0400 Intake Total 770 100 600 600 700 260 Output Total 2900 800 1650 1100 Balance -2130 -700 -1050 600 -400 260 Intake, IV 0 100 10 Intake, Oral 770 100 600 600 600 250 Number 1 Bowel Movements Output, Urine 2900 800 1650 1100 Current Medications Sig/Claire Start time Last Medication Dose Route Stop Time Status Admin Acetaminophen 325 MG Q6 PRN 02/05 1500 AC PO Amoxicillin 500 MG TID 02/14 1834 AC 02/15 PO 1628 Atorvastatin Calcium 5 MG 1700 02/05 1800 AC 02/15 PO 1629 Insulin Aspart 0 TIDAC 02/13 1215 AC 02/15 SD 1749 Insulin Aspart 0 AT BEDTIME 02/11 2200 AC 02/12 SC 2102 Insulin Detemir 16 UNITS BID 02/15 1000 AC 02/15 SC 0952 Insulin Detemir 14 UNITS BID 02/13 2200 DC 02/14 SC 2131 Lidocaine 1 PAT DAILY PRN 02/13 1015 AC EXT Lisinopril 10 MG DAILY 02/06 1429 AC 02/15 PO 0952 Metformin HCl 500 MG 0800,1700 02/12 1700 AC 02/15 PO 1629 Patient Medication 1 ED .STK-MED ONE 02/15 1403 NE Teaching ED 02/15 1404 Tamsulosin HCl 0.4 MG DAILY 02/06 1000 AC 02/15 PO 0952 Laboratory Tests 02/15/17 0648: CBC w Diff NO MAN DIFF REQ, RBC 3.23 L, MCV 94.1 H, MCH 31.7 H, RDW 12.9, MPV 7.3 L, Gran % 57.2, Lymphocytes % 35.3, Monocytes % 4.5, Eosinophils % 2.5, Basophils % 0.5, Absolute Granulocytes 2.7, Absolute Lymphocytes 1.6, Absolute Monocytes 0.2, Absolute Eosinophils 0.1, Absolute Basophils 0, [facility] 33.7 02/14/17 1700: CBC w Diff NO MAN DIFF REQ, RBC 3.73 L, MCV 92.4, MCH 30.9, RDW 13.4, MPV 7.2 L, Gran % 55.2, Lymphocytes % 35.4, Monocytes % 5.3, Eosinophils % 3.0, Basophils % 1.1, Absolute Granulocytes 2.8, Absolute Lymphocytes 1.8, Absolute Monocytes 0.3, Absolute Eosinophils 0.2, Absolute Basophils 0.1, [facility] 33.5 02/13/17 0630: CBC w Diff NO MAN DIFF REQ, RBC 3.20 L, MCV 92.3, MCH 31.8 H, RDW 13.2, MPV 7.9, Gran % 59.4, Lymphocytes % 31.0, Monocytes % 6.6, Eosinophils % 2.6, Basophils % 0.4, Absolute Granulocytes 3.6, Absolute Lymphocytes 1.9, Absolute Monocytes 0.4, Absolute Eosinophils 0.2, Absolute Basophils 0, [facility] 34.4
[2017-02-15 22:28] VITALS: BP 112/60
[2017-02-16 06:31] VITALS: BP 116/74
[2017-02-16 08:12] LABS: ABSOLUTE BASOPHIL COUNT 0 /CUMM (0.0-0.2); ABSOLUTE EOSINOPHIL COUNT 0.1 /CUMM (0.0-0.7); ABSOLUTE GRANULOCYTE CT 3.3 /CUMM (1.4-6.5); ABSOLUTE LYMPH COUNT 1.5 /CUMM (1.2-3.4); ABSOLUTE MONOCYTE COUNT 0.3 /CUMM (0.10-0.60); BASOPHIL % 0.3 % (0.0-2.0); EOSINOPHIL % 2.7 % (0-5); GRANULOCYTE % 62.8 % (42.2-75.2); HEMATOCRIT 30.2 % (42-52); MEAN CORPUSCULAR HGB 31.5 PG (27.0-31.0); MEAN CORPUSCULAR HGB CONC 33.9 G/DL (33.0-37.0); MEAN CORPUSCULAR VOLUME 92.8 FL (80.0-94.0); MEAN PLATELET VOLUME 6.8 FL (7.4-10.4); PLATELET COUNT 134 /CUMM (130-400); RBC DISTRIBUTION WIDTH 13.2 % (11.5-14.5); RED BLOOD CELL CT 3.25 /CUMM (4.70-6.10); WHITE BLOOD CELL COUNT 5.3 /CUMM (4.8-10.8)
[2017-02-16] MEDS ORDERED: GLIMEPIRIDE2 MG PO (09:44)
[2017-02-16] MEDS ORDERED: LEVEMIR100 UNIT/1 SC (09:44)
[2017-02-16] MEDS ORDERED: AMOXICILLIN500 M3 PO (09:44)
[2017-02-16] MEDS ORDERED: GLUCOPHAGE1000 M1 PO (09:44)
--- NOTE | 2017-02-16 10:39 | PN- Housestaff ---
Subjective Follow-up For: 1. New onset diabetes mellitus type 2 2. Sepsis 2/2 urilogical origin 3. BPH s/p TURP Subjective: Patient was put on voiding trials after removing Love catheter but he did not urinate by himself. Love catheter was placed again last night. After placing Love catheter he had some blood and clots in urine. This morning he is alert, awake and oriented. Hemodynamically stable. Urine in Love tube is pinkish in color. He offers no complaints. Review of Systems Constitutional: Reports: see HPI. Objective Last 24 Hrs of Vital Signs/I&O Vital Signs Date Time Temp Pulse Resp B/P B/P Pulse O2 O2 Flow FiO2 Mean Ox Delivery Rate 02/16 0846 84 124/70 02/16 0846 84 124/70 02/16 0631 98.3 74 20 116/74 98 Room Air 02/15 2228 98.9 85 20 112/60 97 Room Air 02/15 1413 98.2 98 20 118/69 97 Intake & Output 02/16 1600 02/16 0800 02/16 0000 Intake Total 480 Output Total 950 1000 Balance -950 -520 Intake, Oral 480 Output, Urine 950 1000 Physical Exam General Appearance: Alert, Oriented X3, Cooperative, No Acute Distress Cardiovascular: Regular Rate Lungs: Clear to Auscultation Abdomen: Normal Bowel Sounds, Soft, No Tenderness Neurological: Normal Speech, Strength at 5/5 X4 Ext, Sensation Intact, Cranial Nerves 3-12 NL Extremities: No Edema Current Medications: Current Medications Sig/Claire Start time Last Medication Dose Route Stop Time Status Admin Acetaminophen 325 MG Q6 PRN 02/05 1500 AC PO Amoxicillin 500 MG TID 02/14 1834 AC 02/16 PO 0846 Atorvastatin [place] 5 [place] [address]/05 1800 AC 02/15 PO 1629 Insulin Aspart 0 TIDAC 02/13 1215 AC 02/16 SC 1244 Insulin Aspart 0 AT BEDTIME 02/11 2200 AC 02/12 SC 2102 Insulin Detemir 16 UNITS BID 02/15 1000 AC 02/16 SC 0847 Lidocaine 1 PAT DAILY PRN 02/13 1015 AC EXT Lisinopril 10 MG DAILY 02/06 1429 AC 02/16 PO 0846 Metformin HCl 500 MG 0800,1700 02/12 1700 AC 02/16 PO 0846 Patient Medication 1 ED .STK-MED ONE 02/15 1403 [facility] ED 02/15 1404 Tamsulosin HCl 0.4 MG DAILY 02/06 1000 AC 02/16 PO 0846 Last 24 Hrs of Lab/Marck Results Last 24 Hrs of Labs/Mics: Laboratory Tests 02/16/17 0715: CBC w Diff NO MAN DIFF REQ, RBC 3.25 L, MCV 92.8, MCH 31.5 H, RDW 13.2, MPV 6.8 L, Gran % 62.8, Lymphocytes % 28.4, Monocytes % 5.8, Eosinophils % 2.7, Basophils % 0.3, Absolute Granulocytes 3.3, Absolute Lymphocytes 1.5, Absolute Monocytes 0.3, Absolute Eosinophils 0.1, Absolute Basophils 0, PUBS MCHC 33.9 Assessment/Plan Assessment: Mr. Upton is a 77-year-old gentleman with past medical history of hypertension, HLD, and BPH who presented to the emergency department on 02/05/2017 complaining of urinary incontinence, polyuria and polydipsia. Was initially admitted to the ICU, transferred to on 02/06. 1. New onset diabetes mellitus type 2 * Continue with Levemir 16 units BID, NovoLog insulin sliding scale before each meal and at bedtime * Continue metformin 2. Sepsis of urological origin/BPH * Continue amoxicillin x 14 days * He was seen by Dr. Santos this morning and plan is to discharge patient home with Love catheter. He would follow-up with Dr. Santos in his office next week. 3. MARCO * Resolved 4. Incidental findings on CT abdomen and pelvis * Indeterminate cystic lesion within the tail of the pancreas with calcifications. pseudocyst versus a cystic pancreatic neoplasm. * Indeterminant liver lesion, cyst. * Small exophytic cyst at the lower pole the right kidney. * MRI abdomen was done without contrast yesterday. Same findings. Evaluation was limited due to lack of IV contrast * Plan is for open MRI with contrast as an outpatient Diet consistent carbohydrate 2 DVT prophylaxis Alps because of thrombocytopenia FULL CODE Problem List: 1. BPH (benign prostatic hyperplasia) 2. Diabetic hyperosmolar non-ketotic state Pain Ratin Pain Location: none Pain Goal: Remain pain free Pain Plan: tylenol Tomorrow's Labs & Rationales: none DVT/Prophylaxis: mechanical
--- NOTE | 2017-02-16 12:54 | PN- Diabetes ---
Assessment/Plan Assessment: Patient came into the hospital with uncontrolled diabetes, hyper glycemic hyperosmolar state, and was found to have sepsis with enterococcus. He has been placed on Unasyn for enterococcus sensitive to ampicillin. The CT scan of abdomen and pelvis shows evidence of chronic pancreatitis which could contribute to the onset of his diabetes.. Patient underwent TURP. He is eating diabetic diet. He was having difficulty in urinating and is still has the Love. Currently, he is on Levemir 14 units twice a day, Novolog coverage before meals and Novolog coverage at bedtime and metformin 500 mg twice a day. His FSGs [id number], 180, 201, 163, 163 and 145. Plan: continue the current DM regimen in hospital; monitor FSGs; will follow. Subjective Subjective: His glucose level has been better. Objective Last 24 Hrs of Vital Signs/I&O Vital Signs Date Time Temp Pulse Resp B/P B/P Pulse O2 O2 Flow FiO2 Mean Ox Delivery Rate 02/16 0846 84 124/70 02/16 0846 84 124/70 02/16 0631 98.3 74 20 116/74 98 Room Air 02/15 2228 98.9 85 20 112/60 97 Room Air 02/15 1413 98.2 98 20 118/69 97 Intake & Output 02/16 1600 02/16 0800 02/16 0000 Intake Total 480 Output Total 950 1000 Balance -950 -520 Intake, Oral 480 Output, Urine 950 1000 Findings Pertinent Lab/Marck Results: Laboratory Tests 02/16 0715 Hematology CBC w Diff NO MAN DIFF REQ WBC (4.8 - 10.8 /CUMM) 5.3 RBC (4.70 - 6.10 /CUMM) 3.25 L Hgb (14.0 - 18.0 G/DL) 10.2 L Hct (42 - 52 %) 30.2 L MCV (80.0 - 94.0 FL) 92.8 MCH (27.0 - 31.0 PG) 31.5 H RDW (11.5 - 14.5 %) 13.2 Plt Count (130 - 400 /CUMM) 134 MPV (7.4 - 10.4 FL) 6.8 L Gran % (42.2 - 75.2 %) 62.8 Lymphocytes % (20.5 - 51.1 %) 28.4 Monocytes % (1.7 - 9.3 %) 5.8 Eosinophils % (0 - 5 %) 2.7 Basophils % (0.0 - 2.0 %) 0.3 Absolute Granulocytes (1.4 - 6.5 /CUMM) 3.3 Absolute Lymphocytes (1.2 - 3.4 /CUMM) 1.5 Absolute Monocytes (0.10 - 0.60 /CUMM) 0.3 Absolute Eosinophils (0.0 - 0.7 /CUMM) 0.1 Absolute Basophils (0.0 - 0.2 /CUMM) 0 PUBS MCHC (33.0 - 37.0 G/DL) 33.9
[2017-02-16 14:29] VITALS: BP 122/68
--- NOTE | 2017-02-16 15:00 | NUR ---
PT PASSING LARGE AMOUNT OF BLOODY URINE AROUND ORTA,URINE IN ORTA BAG IS DARK RED WITH CLOTS NOTED. DR.IHSAN LEON, TO CONTACT DR. CASTELLANO-UROLOGY. SEE NEW ORDERS
--- NOTE | 2017-02-16 17:53 | PN- Infect Dx ---
Subjective Subjective: Recent events noted with hematuria following the TURP, requiring bladder irrigation, and with a failed voiding trial after removal of the Love, with recurrent hematuria after replacement of the Love. He offers no complaints of pain but is frustrated. Objective Last 24 Hrs of Vital Signs/I&O Vital Signs Date Time Temp Pulse Resp B/P B/P Pulse O2 O2 Flow FiO2 Mean Ox Delivery Rate 02/16 1429 98.5 92 20 122/68 95 02/16 0846 84 124/70 02/16 0846 84 124/70 02/16 0631 98.3 74 20 116/74 98 Room Air 02/15 2228 98.9 85 20 112/60 97 Room Air Intake & Output 02/16 1600 02/16 0800 02/16 0000 Intake Total 600 480 Output Total 333 914 3154 Balance -100 -950 -520 Intake, Oral 600 480 Output, Urine 601 758 3893 Physical Exam Other Physical Findings: He appears comfortable in no acute distress Love catheter is in place with hematuria noted Results Last 24 Hours of Lab Results: Laboratory Tests 02/16 0715 Hematology CBC w Diff NO MAN DIFF REQ WBC (4.8 - 10.8 /CUMM) 5.3 RBC (4.70 - 6.10 /CUMM) 3.25 L Hgb (14.0 - 18.0 G/DL) 10.2 L Hct (42 - 52 %) 30.2 L MCV (80.0 - 94.0 FL) 92.8 MCH (27.0 - 31.0 PG) 31.5 H RDW (11.5 - 14.5 %) 13.2 Plt Count (130 - 400 /CUMM) 134 MPV (7.4 - 10.4 FL) 6.8 L Gran % (42.2 - 75.2 %) 62.8 Lymphocytes % (20.5 - 51.1 %) 28.4 Monocytes % (1.7 - 9.3 %) 5.8 Eosinophils % (0 - 5 %) 2.7 Basophils % (0.0 - 2.0 %) 0.3 Absolute Granulocytes (1.4 - 6.5 /CUMM) 3.3 Absolute Lymphocytes (1.2 - 3.4 /CUMM) 1.5 Absolute Monocytes (0.10 - 0.60 /CUMM) 0.3 Absolute Eosinophils (0.0 - 0.7 /CUMM) 0.1 Absolute Basophils (0.0 - 0.2 /CUMM) 0 PUBS MCHC (33.0 - 37.0 G/DL) 33.9 Last 24 Hours of Marck Results: No recent cultures Assessment/Plan Impression: Recurrent hematuria after placement of the Love catheter following a voiding trial after a TURP, which was performed 5 days ago. He is now on Amoxicillin, Day 10 of treatment for Enterococcal bacteremia, felt to be of urologic origin. Suggestion: 1. Further management of his hematuria per Urology 2. Continue Amoxicillin to complete a 14 day course
--- NOTE | 2017-02-16 19:20 | PN- Att Addend ---
Attending Addendum Attending Brief Note Patient little frustrated after the Love was discontinued yesterday was unable to urinate the Love had to be reinserted has had some hematuria and clots since. Was followed by urology endocrinology and infectious diseases originally was supposed to go home today but due to the hematorrhea will be kept for at least 24 more hours continue the hydration continue monitoring his CBC and sugars continue antibiotic therapy as per ID recommendations 24 TOTALS 02/16 0000 02/15 0000 Intake Total 1250 700 Output Total 3900 2450 Balance -2650 -1750 Intake, IV 0 Intake, Oral 1250 700 Number 1 Bowel Movements Output, Urine 3900 2450 Current Medications Sig/Claire Start time Last Medication Dose Route Stop Time Status Admin Acetaminophen 325 MG Q6 PRN 02/05 1500 AC PO Amoxicillin 500 MG TID 02/14 1834 AC 02/16 PO 1717 Atorvastatin Calcium 5 MG 1700 02/05 1800 AC 02/16 PO 1717 Insulin Aspart 0 TIDAC 02/13 1215 AC 02/16 SC 1718 Insulin Aspart 0 AT BEDTIME 02/11 2200 AC 02/12 SC 2102 Insulin Detemir 16 UNITS BID 02/15 1000 AC 02/16 SC 0847 Lidocaine 1 PAT DAILY PRN 02/13 1015 AC EXT Lisinopril 10 MG DAILY 02/06 1429 AC 02/16 PO 0846 Metformin HCl 500 MG 0800,1700 02/12 1700 AC 02/16 PO 1717 Tamsulosin HCl 0.4 MG DAILY 02/06 1000 AC 02/16 PO 0846 Laboratory Tests 02/16/17 0715: CBC w Diff NO MAN DIFF REQ, RBC 3.25 L, MCV 92.8, MCH 31.5 H, RDW 13.2, MPV 6.8 L, Gran % 62.8, Lymphocytes % 28.4, Monocytes % 5.8, Eosinophils % 2.7, Basophils % 0.3, Absolute Granulocytes 3.3, Absolute Lymphocytes 1.5, Absolute Monocytes 0.3, Absolute Eosinophils 0.1, Absolute Basophils 0, PUBS MCHC 33.9 02/15/17 0648: CBC w Diff NO MAN DIFF REQ, RBC 3.23 L, MCV 94.1 H, MCH 31.7 H, RDW 12.9, MPV 7.3 L, Gran % 57.2, Lymphocytes % 35.3, Monocytes % 4.5, Eosinophils % 2.5, Basophils % 0.5, Absolute Granulocytes 2.7, Absolute Lymphocytes 1.6, Absolute Monocytes 0.2, Absolute Eosinophils 0.1, Absolute Basophils 0, PUBS MCHC 33.7
[2017-02-16 22:08] VITALS: BP 118/68
[2017-02-17 06:33] VITALS: BP 120/62
[2017-02-17 07:49] LABS: ABSOLUTE BASOPHIL COUNT 0 /CUMM (0.0-0.2); ABSOLUTE EOSINOPHIL COUNT 0.1 /CUMM (0.0-0.7); ABSOLUTE GRANULOCYTE CT 3.2 /CUMM (1.4-6.5); ABSOLUTE LYMPH COUNT 1.7 /CUMM (1.2-3.4); ABSOLUTE MONOCYTE COUNT 0.3 /CUMM (0.10-0.60); BASOPHIL % 0.4 % (0.0-2.0); EOSINOPHIL % 2.5 % (0-5); GRANULOCYTE % 59.9 % (42.2-75.2); HEMATOCRIT 28.9 % (42-52); MEAN CORPUSCULAR HGB 31.7 PG (27.0-31.0); MEAN CORPUSCULAR HGB CONC 34.2 G/DL (33.0-37.0); MEAN CORPUSCULAR VOLUME 92.7 FL (80.0-94.0); MEAN PLATELET VOLUME 7.2 FL (7.4-10.4); PLATELET COUNT 124 /CUMM (130-400); RBC DISTRIBUTION WIDTH 13.4 % (11.5-14.5); RED BLOOD CELL CT 3.12 /CUMM (4.70-6.10); WHITE BLOOD CELL COUNT 5.4 /CUMM (4.8-10.8)
--- NOTE | 2017-02-17 09:11 | PN- Diabetes ---
Assessment/Plan Assessment: Patient came into the hospital with uncontrolled diabetes, hyper glycemic hyperosmolar state, and was found to have sepsis with enterococcus. He has been placed on Unasyn for enterococcus sensitive to ampicillin. The CT scan of abdomen and pelvis shows evidence of chronic pancreatitis which could contribute to the onset of his diabetes.. Patient underwent TURP. He is eating diabetic diet. He was having difficulty in urinating and is still has the Love. Currently, he is on Levemir 16 units twice a day, Novolog coverage before meals and Novolog coverage at bedtime and metformin 500 mg twice a day. His FSGs [id number], 184, 133, 108 and 130. Plan: continue the current DM regimen; hold Novolog meal coverage and levemir in the morning when he is NPO; monitor FSGs. will follow. Subjective Subjective: He is waiting for the urology procedure. Objective Last 24 Hrs of Vital Signs/I&O Vital Signs Date Time Temp Pulse Resp B/P B/P Pulse O2 O2 Flow FiO2 Mean Ox Delivery Rate 02/17 0633 98.9 74 18 120/62 93 Room Air 02/16 2208 98.3 85 16 118/68 93 Room Air 02/16 1429 98.5 92 20 122/68 95 Intake & Output 02/17 1600 /03 0800 02/17 0000 Intake Total 100 1210 Output Total 1250 1000 Balance -1150 210 Intake, IV 10 Intake, Oral 1200 Intake, Other 100 Output, Urine 1250 1000 Findings Pertinent Lab/Marck Results: Laboratory Tests 02/17 0650 Hematology CBC w Diff NO MAN DIFF REQ WBC (4.8 - 10.8 /CUMM) 5.4 RBC (4.70 - 6.10 /CUMM) 3.12 L Hgb (14.0 - 18.0 G/DL) 9.9 L Hct (42 - 52 %) 28.9 L MCV (80.0 - 94.0 FL) 92.7 MCH (27.0 - 31.0 PG) 31.7 H RDW (11.5 - 14.5 %) 13.4 Plt Count (130 - 400 /CUMM) 124 L MPV (7.4 - 10.4 FL) 7.2 L Gran % (42.2 - 75.2 %) 59.9 Lymphocytes % (20.5 - 51.1 %) 32.2 Monocytes % (1.7 - 9.3 %) 5.0 Eosinophils % (0 - 5 %) 2.5 Basophils % (0.0 - 2.0 %) 0.4 Absolute Granulocytes (1.4 - 6.5 /CUMM) 3.2 Absolute Lymphocytes (1.2 - 3.4 /CUMM) 1.7 Absolute Monocytes (0.10 - 0.60 /CUMM) 0.3 Absolute Eosinophils (0.0 - 0.7 /CUMM) 0.1 Absolute Basophils (0.0 - 0.2 /CUMM) 0 PUBS MCHC (33.0 - 37.0 G/DL) 34.2
--- NOTE | 2017-02-17 09:52 | PN- Att Addend ---
Attending Addendum Attending Brief Note Patient did not go home because after the Love catheter was reinserted he had hematuria with clots Dr. Santos reevaluated the patient this morning patient is kept nothing by mouth and not IV site was started and possibly will have a look early this afternoon to see if there is any active bleeding otherwise patient is stable Current Medications Sig/Claire Start time Last Medication Dose Route Stop Time Status Admin Acetaminophen 325 MG Q6 PRN 02/05 1500 AC PO Amoxicillin 500 MG TID 02/14 1834 AC 02/16 PO 2058 Atorvastatin Calcium 5 [place] [address]002/05 1800 AC 02/16 PO 171 Insulin Aspart 0 TIDAC 02/13 1215 AC 02/16 SC 171 Insulin Aspart 0 AT BEDTIME 02/11 2200 AC 02/12 SC 210 Insulin Detemir 16 UNITS BID 02/15 1000 AC 02/16 SC 205 Lidocaine 1 PAT DAILY PRN 02/13 1015 AC EXT Lisinopril 10 MG DAILY 02/06 1429 AC 02/16 PO 0846 Metformin HCl 500 MG 0800,02/12 1700 AC 02/16 PO 171 Tamsulosin HCl 0.4 MG DAILY 02/06 1000 AC 02/16 PO 0846 Laboratory Tests 02/17/17 0650: CBC w Diff NO MAN DIFF REQ, RBC 3.12 L, MCV 92.7, MCH 31.7 H, RDW 13.4, MPV 7.2 L, Gran % 59.9, Lymphocytes % 32.2, Monocytes % 5.0, Eosinophils % 2.5, Basophils % 0.4, Absolute Granulocytes 3.2, Absolute Lymphocytes 1.7, Absolute Monocytes 0.3, Absolute Eosinophils 0.1, Absolute Basophils 0, PUBS MCHC 34.2 Vital Signs Date Time Temp Pulse Resp B/P B/P Pulse O2 O2 Flow FiO2 Mean Ox Delivery Rate 02/17 633 98.9 74 18 120/62 93 Room Air
--- NOTE | 2017-02-17 13:11 | PN- Housestaff ---
Subjective Follow-up For: 1. New onset diabetes mellitus type 2 2. Sepsis 2/2 urilogical origin 3. BPH s/p TURP Subjective: Patient was about to discharge yesterday when he started having bleeding around the penis and blood clots in his urine. Dr. Santos was contacted and it was decided to keep patient in hospital. This morning he has been seen by Dr. Santos and made nothing by mouth. Plan is to do a cystoscopy today any time. Patient is very anxious. Review of Systems Constitutional: Reports: see HPI. Objective Last 24 Hrs of Vital Signs/I&O Vital Signs Date Time Temp Pulse Resp B/P B/P Pulse O2 O2 Flow FiO2 Mean Ox Delivery Rate 02/17 1026 100 110/60 02/17 1026 100 110/60 / 0633 98.9 74 18 120/62 93 Room Air 02/16 2208 98.3 85 16 118/68 93 Room Air 02/16 1429 98.5 92 20 122/68 95 Intake & Output 02/17 1600 02/17 0800 05 0000 Intake Total 100 1210 Output Total 1250 1000 Balance -1150 210 Intake, IV 10 Intake, Oral 1200 Intake, Other 100 Output, Urine 1250 1000 Physical Exam General Appearance: Alert, Oriented X3, Cooperative, No Acute Distress Neck: Supple Cardiovascular: Regular Rate Lungs: Clear to Auscultation Abdomen: Normal Bowel Sounds, Soft, No Tenderness Neurological: Normal Speech, Strength at 5/5 X4 Ext, Sensation Intact, Cranial Nerves 3-12 NL Extremities: No Edema Current Medications: Current Medications Sig/Claire Start time Last Medication Dose Route Stop Time Status Admin Acetaminophen 325 MG Q6 PRN 02/05 1500 AC PO Amoxicillin 500 MG TID 02/14 1834 AC / PO 1023 Atorvastatin Calcium 5 MG 1700 02/05 1800 AC 02/16 PO 1717 Dextrose/Sodium 1,000 ML Q13H 02/17 1015 AC 05/03 Chloride IV 1112 Insulin Aspart 0 Q4 02/17 1400 AC SC Insulin Aspart 0 TIDAC 02/13 1215 DC 02/16 SC 1718 Insulin Aspart 0 AT BEDTIME 02/11 2200 DC 02/12 SC 2102 Insulin Detemir 8 UNITS BID 02/17 2200 AC SC Insulin Detemir 16 UNITS BID 02/15 1000 DC 02/16 SC 2059 Lidocaine 1 PAT DAILY PRN 02/13 1015 AC EXT Lisinopril 10 MG DAILY 02/06 1429 AC 02/17 PO 1026 Metformin HCl 500 MG 0800,1700 02/12 1700 AC 02/16 PO 1717 Tamsulosin HCl 0.4 MG DAILY 02/06 1000 AC 02/17 PO 1026 Last 24 Hrs of Lab/Marck Results Last 24 Hrs of Labs/Mics: Laboratory Tests 02/17/17 0650: CBC w Diff NO MAN DIFF REQ, RBC 3.12 L, MCV 92.7, MCH 31.7 H, RDW 13.4, MPV 7.2 L, Gran % 59.9, Lymphocytes % 32.2, Monocytes % 5.0, Eosinophils % 2.5, Basophils % 0.4, Absolute Granulocytes 3.2, Absolute Lymphocytes 1.7, Absolute Monocytes 0.3, Absolute Eosinophils 0.1, Absolute Basophils 0, PUBS MCHC 34.2 Lines/Diet/Fluids Catheters/Tubes: zelaya Zleaya Still Needed? Yes Assessment/Plan Assessment: Mr. Upton is a 77-year-old gentleman with past medical history of hypertension, HLD, and BPH who presented to the emergency department on 02/05/2017 complaining of urinary incontinence, polyuria and polydipsia. Was initially admitted to the ICU, transferred to on 02/06. 1. New onset diabetes mellitus type 2 * This patient is NPO so his Levemir has been decreased to 8 units twice a day and NovoLog sliding scale has been changed to nothing by mouth Q4 SS. * Continue metformin 2. Sepsis of urological origin/BPH * Continue amoxicillin x 14 days * He was seen by Dr. Santos this morning and plan is to do cystoscopy anytime today as he is still having hematuria and clots in his urine. 3. MARCO * Resolved 4. Incidental findings on CT abdomen and pelvis * Indeterminate cystic lesion within the tail of the pancreas with calcifications. pseudocyst versus a cystic pancreatic neoplasm. * Indeterminant liver lesion, cyst. * Small exophytic cyst at the lower pole the right kidney. * MRI abdomen was done without contrast yesterday. Same findings. Evaluation was limited due to lack of IV contrast * Plan is for open MRI with contrast as an outpatient Diet consistent carbohydrate 2 DVT prophylaxis Alps because of thrombocytopenia FULL CODE Problem List: 1. BPH (benign prostatic hyperplasia) 2. Diabetic hyperosmolar non-ketotic state Pain Ratin Pain Location: none Pain Goal: Remain pain free Pain Plan: tylenol Tomorrow's Labs & Rationales: cbc DVT/Prophylaxis: mechanical
[2017-02-17 14:29] VITALS: BP 120/62
--- NOTE | 2017-02-17 17:33 | Operative Report ---
Operative/Inv Procedure Report Surgery Date: 02/17/17 Name of Procedure: REVISION TURP. CYSTO-EVACUATION OF CLOT. FULGURATION OF BLEEDING PROSTATE VESSELS. Pre-Operative Diagnosis: BLOOD LOSS ANEMIA 2ND TO PROSTATE OOZING Post-Operative Diagnosis: SAME Estimated Blood Loss: 50ml to 100ml Surgeon/Brazer Production Line: MD NONA, [facility]-UROLOG[facility] Anesthesia: moderate sedation Drains: 24 FR. 3-WAY WITH NS CBI Specimens: PROSTATE CHIPS Complications: NONE Operative/Procedure Note Note: The patient was taken to the operating room and placed on the OR table in supine position. Timeout was performed, with the pt. awake, to correctly identify the patient, anesthesia, procedure, and IV antibiotics, and other pertinent perioperative information. After adequate anesthesia and antibiotics, the old Zelaya catheter was removed. The patient was then placed in lithotomy stirrups using yellowfin stirrups. The patient was then draped and prepped in the usual surgical fashion. A 26 English standard resectoscope sheath with a 30 angle lens and the 24 English loop was inserted into the urethra, and then advanced into the bladder without difficulty. A FEW small clots, and bladder stones, were noted in the bladder, and were Ellix evacuated out. With a clearer vision, the prostate was noted to have an irregular and ratty surface with severely coapting lobes. Areas of prostate oozing were cauterized to achieve good hemastasis. Additonally, the apical prostate was resected with fulguration to achieve good hemastatsis.. Upon entering the bladder, it was thoroughly and systematically surveyed revealing no evidence of tumor, no evidence of stone, both orifices were difficult to find due to the severe trabeculation, in their orthotopic position with clear yellow reflux. The external sphincter was preserved. The bladder was then re-entered via the resectoscope, and the prostate chips were irrigated out using tumey evacuation. Once all the prostate chips were removed, the bladder was re-evaluating and noted to have no untoward injury. Additionally, the prostate channel was noted to have good hemostasis, with a wide open channel. The resectoscope was removed with the bladder full. A 22 English couvalier three-way Zelaya catheter was inserted without difficulty draining clear fluid. The bladder was again copiously irrigated via the zelaya to ensure patency/ The 30 mL balloon was then filled, and continuous bladder irrigation with normal saline was initiated. Clear and easy drainage of NS from the main port was confirmed with CBI. All sponge needle and instrument count were correct at the end of the case. The patient tolerated the procedure well and was then taken to the recovery room in satisfactory condition. Findings: APICAL PROSTATE TISSUE BLEED. Discharge Disposition: PACU CC: SMILEY CASTELLANO MD
[2017-02-17 18:00] VITALS: BP 144/80
--- NOTE | 2017-02-17 18:00 | NUR ---
PT RETURNED FROM OR-S/P CYSTO, CLOT EVACUATION, AND TURPT REVISION. PT A&O. CBI INFUSING. URINE CLEAR AND PINK IN COLOR. PT C/O SOME ACHING PAIN TO GROIN AREA, UNSURE IF IT IS BEING CAUSED BY THE SIZE OF THE CATHETER INSERTED. PAGELake, ULTRAM ORDER OBTAINED AND ADMINISTERED. VSS. SUGAR 191. ALPS PLACED, WILL MONITOR.
[2017-02-17 22:41] VITALS: BP 112/60
[2017-02-18 06:49] VITALS: BP 118/56
[2017-02-18 07:59] LABS: ABSOLUTE BASOPHIL COUNT 0 /CUMM (0.0-0.2); ABSOLUTE EOSINOPHIL COUNT 0.1 /CUMM (0.0-0.7); ABSOLUTE LYMPH COUNT 1.3 /CUMM (1.2-3.4); ABSOLUTE MONOCYTE COUNT 0.3 /CUMM (0.10-0.60); BASOPHIL % 0.3 % (0.0-2.0); EOSINOPHIL % 1.4 % (0-5); GRANULOCYTE % 74.6 % (42.2-75.2); HEMATOCRIT 26.6 % (42-52); MEAN CORPUSCULAR HGB 31.8 PG (27.0-31.0); MEAN CORPUSCULAR HGB CONC 34.5 G/DL (33.0-37.0); MEAN CORPUSCULAR VOLUME 92.3 FL (80.0-94.0); MEAN PLATELET VOLUME 7.3 FL (7.4-10.4); PLATELET COUNT 121 /CUMM (130-400); RBC DISTRIBUTION WIDTH 13.1 % (11.5-14.5); RED BLOOD CELL CT 2.89 /CUMM (4.70-6.10); WHITE BLOOD CELL COUNT 6.7 /CUMM (4.8-10.8)
--- NOTE | 2017-02-18 08:41 | PN- Diabetes ---
Assessment/Plan Assessment: Patient came into the hospital with uncontrolled diabetes, hyper glycemic hyperosmolar state, and was found to have sepsis with enterococcus. He has been placed on Unasyn for enterococcus sensitive to ampicillin. The CT scan of abdomen and pelvis shows evidence of chronic pancreatitis which could contribute to the onset of his diabetes.. Patient underwent revision TURP and evacuation of clots on 02/17/2017. He is eating diabetic diet. Currently, he is on Levemir 16 units twice a day, Novolog coverage before meals and Novolog coverage at bedtime and metformin 500 mg twice a day. His FSGs were 130, 183, 191, 205 and 155. Plan: continue the current DM regimen for now; monitor FSGs. will follow. Subjective Subjective: He feels okay this morning. Objective Last 24 Hrs of Vital Signs/I&O Vital Signs Date Time Temp Pulse Resp B/P B/P Pulse O2 O2 Flow FiO2 Mean Ox Delivery Rate 02/18 0649 98.4 81 20 118/56 96 Room Air 02/17 2241 98.1 88 20 112/60 95 Room Air 02/17 1800 97.6 89 18 144/80 94 Room Air 02/17 1429 98.1 77 20 120/62 96 / 1026 100 110/60 05/ 1026 100 110/60 Intake & Output 02/18 1600 /04 0800 02/18 0000 Intake Total 8540 4820 Output Total 9400 5000 Balance -860 -180 Intake, Oral 240 320 Intake, Other 8300 4500 Number 0 0 Bowel Movements Output, Urine 9400 5000 Findings Pertinent Lab/Marck Results: Laboratory Tests 02/18 0625 Chemistry Sodium (137 - 145 mmol/L) 136 L Potassium (3.5 - 5.1 mmol/L) 4.1 Chloride (98 - 107 mmol/L) 103 Carbon Dioxide (22 - 30 mmol/L) 26 Anion Gap (5 - 16) 7 BUN (9 - 20 mg/dL) 9 Creatinine (0.7 - 1.2 mg/dL) 0.7 Estimated GFR (>60 ml/min) > 60 BUN/Creatinine Ratio (7 - 25 %) 12.9 Hematology CBC w Diff NO MAN DIFF REQ WBC (4.8 - 10.8 /CUMM) 6.7 RBC (4.70 - 6.10 /CUMM) 2.89 L Hgb (14.0 - 18.0 G/DL) 9.2 L Hct (42 - 52 %) 26.6 L MCV (80.0 - 94.0 FL) 92.3 MCH (27.0 - 31.0 PG) 31.8 H RDW (11.5 - 14.5 %) 13.1 Plt Count (130 - 400 /CUMM) 121 L MPV (7.4 - 10.4 FL) 7.3 L Gran % (42.2 - 75.2 %) 74.6 Lymphocytes % (20.5 - 51.1 %) 19.2 L Monocytes % (1.7 - 9.3 %) 4.5 Eosinophils % (0 - 5 %) 1.4 Basophils % (0.0 - 2.0 %) 0.3 Absolute Granulocytes (1.4 - 6.5 /CUMM) 5.0 Absolute Lymphocytes (1.2 - 3.4 /CUMM) 1.3 Absolute Monocytes (0.10 - 0.60 /CUMM) 0.3 Absolute Eosinophils (0.0 - 0.7 /CUMM) 0.1 Absolute Basophils (0.0 - 0.2 /CUMM) 0 PUBS MCHC (33.0 - 37.0 G/DL) 34.5
--- NOTE | 2017-02-18 10:58 | PN- Housestaff ---
Subjective Follow-up For: 1. New onset diabetes mellitus type 2 2. Sepsis 2/2 urilogical origin 3. BPH s/p TURP Subjective: This morning patient is alert, awake and oriented. Yesterday he went for revision TURP and fulguration of bleeding prostate vessels by Dr. Santos. He is complaining of leaking of urine around his penis. He is anxious about his current situation. On CBI right now. Urine in bag looks clear. Review of Systems Constitutional: Reports: see HPI. Objective Last 24 Hrs of Vital Signs/I&O Vital Signs Date Time Temp Pulse Resp B/P B/P Pulse O2 O2 Flow FiO2 Mean Ox Delivery Rate 02/18 0850 81 118/56 / 0850 81 118/56 / 0649 98.4 81 20 118/56 96 Room Air 02/17 2241 98.1 88 20 112/60 95 Room Air / 1800 97.6 89 18 144/80 94 Room Air 02/17 1429 98.1 77 20 120/62 96 Intake & Output 02/18 1600 02/18 0800 02/18 0000 Intake Total 8540 4820 Output Total 9400 5000 Balance -860 -180 Intake, Oral 240 320 Intake, Other 8300 4500 Number 0 0 Bowel Movements Output, Urine 9400 5000 Physical Exam General Appearance: Alert, Oriented X3, Cooperative, No Acute Distress Neck: Supple Cardiovascular: Regular Rate Lungs: Clear to Auscultation Abdomen: Normal Bowel Sounds, Soft, No Tenderness Neurological: Normal Speech, Strength at 5/5 X4 Ext, Sensation Intact, Cranial Nerves 3-12 NL Extremities: No Edema Current Medications: Current Medications Sig/Claire Start time Last Medication Dose Route Stop Time Status Admin Acetaminophen 325 MG .STK-MED ONE 02/17 1816 DC PO 02/17 1817 Acetaminophen 325 MG Q6 PRN 02/05 1500 AC PO Amoxicillin 500 MG TID 02/14 1834 AC 02/18 PO 0851 Atorvastatin Calcium 5 MG 1700 02/05 1800 AC / PO 1821 Dextrose/Sodium 1,000 ML Q13H 02/17 1015 DC 02/17 Chloride IV 1112 Fentanyl Citrate 100 MCG .STK-MED ONE 02/17 1547 DC IM 02/17 1548 Fentanyl Citrate 100 MCG .STK-MED ONE 02/17 1427 DC IM 02/17 1428 Hydromorphone HCl 2 MG .STK-MED ONE 02/17 1704 DC IM 02/17 1705 Insulin Aspart 0 AT BEDTIME 02/18 2200 AC SC Insulin Aspart 0 TIDAC 02/18 0800 AC 02/18 SC 0851 Insulin Aspart 0 Q4 02/17 1400 DC SC Insulin Detemir 8 UNITS BID 02/17 2200 CAN SC Insulin Detemir 16 UNITS BID 02/17 2200 AC 02/18 SC 0851 Lidocaine 1 PAT DAILY PRN 02/13 1015 AC EXT Lisinopril 10 MG DAILY 02/06 1429 AC 02/18 PO 0850 Meperidine HCl 50 MG .STK-MED ONE 02/17 1652 DC IM 02/17 1653 Metformin HCl 500 MG 0800,1700 02/12 1700 AC 02/18 PO 0850 Tamsulosin HCl 0.4 MG DAILY 02/06 1000 AC 02/18 PO 0850 Tramadol HCl 50 MG Q6P PRN 02/17 1815 AC 02/17 PO 1820 Last 24 Hrs of Lab/Marck Results Last 24 Hrs of Labs/Mics: Laboratory Tests 02/18/17 0625: Anion Gap 7, Estimated GFR > 60, BUN/Creatinine Ratio 12.9, CBC w Diff NO MAN DIFF REQ, RBC 2.89 L, MCV 92.3, MCH 31.8 H, RDW 13.1, MPV 7.3 L, Gran % 74.6, Lymphocytes % 19.2 L, Monocytes % 4.5, Eosinophils % 1.4, Basophils % 0.3, Absolute Granulocytes 5.0, Absolute Lymphocytes 1.3, Absolute Monocytes 0.3, Absolute Eosinophils 0.1, Absolute Basophils 0, PUBS MCHC 34.5 Assessment/Plan Assessment: Mr. Upton is a 77-year-old gentleman with past medical history of hypertension, HLD, and BPH who presented to the emergency department on 02/05/2017 complaining of urinary incontinence, polyuria and polydipsia. Was initially admitted to the ICU, transferred to on 02/06. 1. New onset diabetes mellitus type 2 * Continue with Levemir 16 units BID, NovoLog insulin sliding scale before each meal and at bedtime * Continue metformin 2. Sepsis of urological origin/BPH * Continue amoxicillin x 14 days * S/P revision TURP and fulguration of bleeding prostate vessels yesterday * urine in zelaya bag is clear 3. MRACO * Resolved 4. Incidental findings on CT abdomen and pelvis * Indeterminate cystic lesion within the tail of the pancreas with calcifications. pseudocyst versus a cystic pancreatic neoplasm. * Indeterminant liver lesion, cyst. * Small exophytic cyst at the lower pole the right kidney. * MRI abdomen was done without contrast yesterday. Same findings. Evaluation was limited due to lack of IV contrast * Plan is for open MRI with contrast as an outpatient 5. Acute blood loss anemia * 2/2 hematuria and clots in urine * H/H on ademission 15.6/47.2 * H/H today 9.2/26.6 * Monitor H/H daily and transfuse if Hb <7 6. Thrombocytopenia * platelets 121 today * no hematuria today. urine looks clear * monitor platelets daily Diet consistent carbohydrate 2 DVT prophylaxis Alps because of thrombocytopenia FULL CODE Problem List: 1. Diabetic hyperosmolar non-ketotic state 2. BPH (benign prostatic hyperplasia) Pain Ratin Pain Location: none Pain Goal: Pain 4 or less Pain Plan: ultram Tomorrow's Labs & Rationales: bep, cbc DVT/Prophylaxis: mechanical
--- NOTE | 2017-02-18 12:31 | PN- Att Addend ---
Attending Addendum Attending Brief Note Patient comfortably in bed, Love catheter being irrigated the urine looks better on a pink tinged not read anymore no clots patient had yesterday blood loss anemia secondary to the bleeding via the Love catheter had a cystoscopy evaluation and fulguration of bleeding prostate vessels by Dr. Santos today the patient seems stable his vital signs are stable has no fever, no new changes on physical. Today's hemoglobin is 9.2 his hematocrit 26.6 and we'll continue present treatment and check with Dr. Santos how much longer we need to irrigate the bladder 24 TOTALS 02/18 0000 02/17 0000 Intake Total 5320 1810 Output Total 6250 2650 Balance -930 -840 Intake, IV 400 10 Intake, Oral 320 1800 Intake, Other 4600 Number 0 Bowel Movements Output, Urine 6250 2650 Current Medications Sig/Claire Start time Last Medication Dose Route Stop Time Status Admin Acetaminophen 325 MG .STK-MED ONE 02/17 1816 DC PO 02/17 1817 Acetaminophen 325 MG Q6 PRN 02/05 1500 AC PO Amoxicillin 500 MG TID 02/14 1834 AC 02/18 PO 0851 Atorvastatin Calcium 5 MG 1700 02/05 1800 AC 02/17 PO 1821 Dextrose/Sodium 1,000 ML Q13H 02/17 1015 DC 02/17 Chloride IV 1112 Fentanyl Citrate 100 MCG .STK-MED ONE 02/17 1547 DC IM 02/17 1548 Fentanyl Citrate 100 MCG .STK-MED ONE 02/17 1427 DC IM 02/17 1428 Hydromorphone HCl 2 MG .STK-MED ONE 02/17 1704 DC IM 02/17 1705 Insulin Aspart 0 AT BEDTIME 02/18 2200 AC SC Insulin Aspart 0 TIDAC 02/18 0800 AC 02/18 SC 0851 Insulin Aspart 0 Q4 02/17 1400 DC SC Insulin Detemir 8 UNITS BID 02/17 2200 CAN SC Insulin Detemir 16 UNITS BID 02/17 2200 AC 02/18 SC 0851 Lidocaine 1 PAT DAILY PRN 02/13 1015 AC EXT Lisinopril 10 MG DAILY 02/06 1429 AC 02/18 PO 0850 Meperidine HCl 50 MG .STK-MED ONE 02/17 1652 DC IM 02/17 1653 Metformin HCl 500 MG 0800,1700 02/12 1700 AC 02/18 PO 0850 Tamsulosin HCl 0.4 MG DAILY 02/06 1000 AC 02/18 PO 0850 Tramadol HCl 50 MG Q6P PRN 02/17 1815 AC 02/17 PO 1820 Laboratory Tests 02/18/17 0625: Anion Gap 7, Estimated GFR > 60, BUN/Creatinine Ratio 12.9, CBC w Diff NO MAN DIFF REQ, RBC 2.89 L, MCV 92.3, MCH 31.8 H, RDW 13.1, MPV 7.3 L, Gran % 74.6, Lymphocytes % 19.2 L, Monocytes % 4.5, Eosinophils % 1.4, Basophils % 0.3, Absolute Granulocytes 5.0, Absolute Lymphocytes 1.3, Absolute Monocytes 0.3, Absolute Eosinophils 0.1, Absolute Basophils 0, PUBS MCHC 34.5 02/17/17 0650: CBC w Diff NO MAN DIFF REQ, RBC 3.12 L, MCV 92.7, MCH 31.7 H, RDW 13.4, MPV 7.2 L, Gran % 59.9, Lymphocytes % 32.2, Monocytes % 5.0, Eosinophils % 2.5, Basophils % 0.4, Absolute Granulocytes 3.2, Absolute Lymphocytes 1.7, Absolute Monocytes 0.3, Absolute Eosinophils 0.1, Absolute Basophils 0, PUBS MCHC 34.2
--- NOTE | 2017-02-18 13:29 | NUR ---
PT HAS BEEN UP AND WALKING INDENDENTLY AROUND THE FLOOR. WILL CONTINUE TO MONITOR.
--- NOTE | 2017-02-18 14:07 | PN- Infect Dx ---
Subjective Subjective: Afebrile. He complains of fatigue but is otherwise without complaints Objective Last 24 Hrs of Vital Signs/I&O Vital Signs Date Time Temp Pulse Resp B/P B/P Pulse O2 O2 Flow FiO2 Mean Ox Delivery Rate 02/18 0850 81 118/56 02/18 0850 81 118/56 02/18 0649 98.4 81 20 118/56 96 Room Air 02/17 2241 98.1 88 20 112/60 95 Room Air 02/17 1800 97.6 89 18 144/80 94 Room Air 02/17 1429 98.1 77 20 120/62 96 Intake & Output 02/18 1600 02/18 0800 02/18 0000 Intake Total 8540 4820 Output Total 9400 5000 Balance -860 -180 Intake, Oral 240 320 Intake, Other 8300 4500 Number 0 0 Bowel Movements Output, Urine 9400 5000 Physical Exam Other Physical Findings: He appears comfortable in no acute distress Love catheter is in place with clear urine Results Last 24 Hours of Lab Results: Laboratory Tests 02/18 0625 Chemistry Sodium (137 - 145 mmol/L) 136 L Potassium (3.5 - 5.1 mmol/L) 4.1 Chloride (98 - 107 mmol/L) 103 Carbon Dioxide (22 - 30 mmol/L) 26 Anion Gap (5 - 16) 7 BUN (9 - 20 mg/dL) 9 Creatinine (0.7 - 1.2 mg/dL) 0.7 Estimated GFR (>60 ml/min) > 60 BUN/Creatinine Ratio (7 - 25 %) 12.9 Hematology CBC w Diff NO MAN DIFF REQ WBC (4.8 - 10.8 /CUMM) 6.7 RBC (4.70 - 6.10 /CUMM) 2.89 L Hgb (14.0 - 18.0 G/DL) 9.2 L Hct (42 - 52 %) 26.6 L MCV (80.0 - 94.0 FL) 92.3 MCH (27.0 - 31.0 PG) 31.8 H RDW (11.5 - 14.5 %) 13.1 Plt Count (130 - 400 /CUMM) 121 L MPV (7.4 - 10.4 FL) 7.3 L Gran % (42.2 - 75.2 %) 74.6 Lymphocytes % (20.5 - 51.1 %) 19.2 L Monocytes % (1.7 - 9.3 %) 4.5 Eosinophils % (0 - 5 %) 1.4 Basophils % (0.0 - 2.0 %) 0.3 Absolute Granulocytes (1.4 - 6.5 /CUMM) 5.0 Absolute Lymphocytes (1.2 - 3.4 /CUMM) 1.3 Absolute Monocytes (0.10 - 0.60 /CUMM) 0.3 Absolute Eosinophils (0.0 - 0.7 /CUMM) 0.1 Absolute Basophils (0.0 - 0.2 /CUMM) 0 PUBS MCHC (33.0 - 37.0 G/DL) 34.5 Last 24 Hours of Marck Results: No recent cultures Assessment/Plan Impression: Stable status post TURP revision with evacuation of clots and fulguration of the bleeding prostate vessels yesterday because of persistent hematuria following a TURP, which was performed one week ago. He remains afebrile on Amoxicillin, Day 12 of treatment for Enterococcal bacteremia, presumed to be of urologic origin. Suggestion: 1. Continue Amoxicillin until February 20 to complete a two-week course of treatment
[2017-02-18 14:09] VITALS: BP 100/70
[2017-02-18 21:22] VITALS: BP 100/60
[2017-02-19 06:35] VITALS: BP 110/20
[2017-02-19 08:49] LABS: ABSOLUTE BASOPHIL COUNT 0 /CUMM (0.0-0.2); ABSOLUTE EOSINOPHIL COUNT 0.1 /CUMM (0.0-0.7); ABSOLUTE GRANULOCYTE CT 4.9 /CUMM (1.4-6.5); ABSOLUTE LYMPH COUNT 1.8 /CUMM (1.2-3.4); ABSOLUTE MONOCYTE COUNT 0.4 /CUMM (0.10-0.60); BASOPHIL % 0.2 % (0.0-2.0); EOSINOPHIL % 1.6 % (0-5); GRANULOCYTE % 68.1 % (42.2-75.2); HEMATOCRIT 26.6 % (42-52); MEAN CORPUSCULAR HGB 31.3 PG (27.0-31.0); MEAN CORPUSCULAR HGB CONC 33.7 G/DL (33.0-37.0); MEAN CORPUSCULAR VOLUME 92.8 FL (80.0-94.0); MEAN PLATELET VOLUME 7.3 FL (7.4-10.4); PLATELET COUNT 132 /CUMM (130-400); RBC DISTRIBUTION WIDTH 13.1 % (11.5-14.5); RED BLOOD CELL CT 2.87 /CUMM (4.70-6.10); WHITE BLOOD CELL COUNT 7.1 /CUMM (4.8-10.8)
[2017-02-19] MEDS ORDERED: AMOXICILLIN500 M3 PO ×2 (10:59→12:08)
--- NOTE | 2017-02-19 12:14 | PN- Diabetes ---
Assessment/Plan Assessment: Patient came into the hospital with uncontrolled diabetes, hyper glycemic hyperosmolar state, and was found to have sepsis with enterococcus. He has been placed on Unasyn for enterococcus sensitive to ampicillin. The CT scan of abdomen and pelvis shows evidence of chronic pancreatitis which could contribute to the onset of his diabetes.. Patient underwent revision TURP and evacuation of clots on 02/17/2017. He is eating diabetic diet. Currently, he is on Levemir 16 units twice a day, Novolog coverage before meals and Novolog coverage at bedtime and metformin 500 mg twice a day. His FSGs were 155, 222, 173, 209 and 121. Plan: continue the current DM regimen in hospital. if partient is medically stable for discharge, the discharge plan for DM ---Levemir 30 units daily starting tomorrow ( Levemier 15 units x1 tonight as he will receive Levemir 16 units in the morning in hospital) ---Metformin 1000 mg twice a day ( with breakfast and with dinner); ---Glimepiride 2 mg twice a day ( right before breakfast and right before dinner) ---monitor FSGs x 3-4 times a day; --- f/u with Dr. Monterroso in the office after discharge. please call if there are any questions. Subjective Subjective: He feels well. As per patient, he might go home today. Objective Last 24 Hrs of Vital Signs/I&O Vital Signs Date Time Temp Pulse Resp B/P B/P Pulse O2 O2 Flow FiO2 Mean Ox Delivery Rate 02/19 0859 95 122/70 02/19 0858 95 122/70 02/19 0635 99.1 81 19 110/20 95 Room Air 02/18 2122 99.8 90 18 100/60 95 Room Air 02/18 1409 99.2 99 18 100/70 95 Room Air Intake & Output 02/19 1600 02/19 0800 02/19 0000 Intake Total 800 Output Total 750 250 Balance -750 550 Intake, Oral 800 Output, Urine 750 250 Patient 220 lb Weight Findings Pertinent Lab/Marck Results: Laboratory Tests 02/19 0650 Hematology CBC w Diff NO MAN DIFF REQ WBC (4.8 - 10.8 /CUMM) 7.1 RBC (4.70 - 6.10 /CUMM) 2.87 L Hgb (14.0 - 18.0 G/DL) 9.0 L Hct (42 - 52 %) 26.6 L MCV (80.0 - 94.0 FL) 92.8 MCH (27.0 - 31.0 PG) 31.3 H RDW (11.5 - 14.5 %) 13.1 Plt Count (130 - 400 /CUMM) 132 MPV (7.4 - 10.4 FL) 7.3 L Gran % (42.2 - 75.2 %) 68.1 Lymphocytes % (20.5 - 51.1 %) 25.1 Monocytes % (1.7 - 9.3 %) 5.0 Eosinophils % (0 - 5 %) 1.6 Basophils % (0.0 - 2.0 %) 0.2 Absolute Granulocytes (1.4 - 6.5 /CUMM) 4.9 Absolute Lymphocytes (1.2 - 3.4 /CUMM) 1.8 Absolute Monocytes (0.10 - 0.60 /CUMM) 0.4 Absolute Eosinophils (0.0 - 0.7 /CUMM) 0.1 Absolute Basophils (0.0 - 0.2 /CUMM) 0 PUBS MCHC (33.0 - 37.0 G/DL) 33.7
[2017-02-19 13:45] VITALS: BP 140/80
--- NOTE | 2017-02-19 17:27 | PN- Housestaff ---
Subjective Follow-up For: 1. New onset diabetes mellitus type 2 2. Sepsis 2/2 urilogical origin 3. BPH s/p TURP x 2 Subjective: This morning patient is alert, awake and oriented. CBI was discontinued in the morning. He was again having hematuria. He was looking very anxious. Review of Systems Constitutional: Reports: see HPI. Objective Last 24 Hrs of Vital Signs/I&O Vital Signs Date Time Temp Pulse Resp B/P B/P Pulse O2 O2 Flow FiO2 Mean Ox Delivery Rate 02/19 1345 97.8 80 20 140/80 98 05/05 0859 95 122/70 05/05 0858 95 122/70 05/05 0635 99.1 81 19 110/20 95 Room Air 02/18 2122 99.8 90 18 100/60 95 Room Air Intake & Output 02/19 1600 02/19 0800 02/19 0000 Intake Total 800 800 Output Total 1250 750 250 Balance -450 -750 550 Intake, Oral 800 800 Output, Urine 1250 750 250 Patient 220 lb Weight Physical Exam General Appearance: Alert, Oriented X3, Cooperative, No Acute Distress Neck: Supple Cardiovascular: Regular Rate Lungs: Clear to Auscultation Abdomen: Normal Bowel Sounds, Soft, No Tenderness Neurological: Normal Speech, Strength at 5/5 X4 Ext, Sensation Intact, Cranial Nerves 3-12 NL Extremities: No Edema Current Medications: Current Medications Sig/Claire Start time Last Medication Dose Route Stop Time Status Admin Acetaminophen 325 MG Q6 PRN 02/05 1500 AC PO Amoxicillin 500 MG TID 02/19 1600 AC 02/19 PO 1719 Amoxicillin 500 MG TID 02/14 1834 DC 02/18 PO 1707 Atorvastatin Calcium 5 MG 02/05 1800 AC 02/19 PO 1719 Insulin Aspart 0 AT BEDTIME 02/18 2200 AC SC Insulin Aspart 0 TIDAC 02/18 0800 AC 02/19 SC 1719 Insulin Detemir 16 UNITS BID 02/17 2200 AC 02/19 SC 1112 Lidocaine 1 PAT DAILY PRN 02/13 1015 AC EXT Lisinopril 10 MG DAILY 02/06 1429 AC 02/19 PO 0859 Metformin HCl 500 MG 0800,1700 02/12 1700 AC 02/19 PO 1719 Tamsulosin HCl 0.4 MG DAILY 02/06 1000 AC 02/19 PO 0858 Tramadol HCl 50 MG Q6P PRN 02/17 1815 AC 02/17 PO 1820 Last 24 Hrs of Lab/Marck Results Last 24 Hrs of Labs/Mics: Laboratory Tests 02/19/17 0650: CBC w Diff NO MAN DIFF REQ, RBC 2.87 L, MCV 92.8, MCH 31.3 H, RDW 13.1, MPV 7.3 L, Gran % 68.1, Lymphocytes % 25.1, Monocytes % 5.0, Eosinophils % 1.6, Basophils % 0.2, Absolute Granulocytes 4.9, Absolute Lymphocytes 1.8, Absolute Monocytes 0.4, Absolute Eosinophils 0.1, Absolute Basophils 0, PUBS MCHC 33.7 Lines/Diet/Fluids Catheters/Tubes: zelaya Zelaya Still Needed? Yes Assessment/Plan Assessment: Mr. Upton is a 77-year-old gentleman with past medical history of hypertension, HLD, and BPH who presented to the emergency department on 02/05/2017 complaining of urinary incontinence, polyuria and polydipsia. Was initially admitted to the ICU, transferred to on 02/06. 1. New onset diabetes mellitus type 2 * Continue with Levemir 16 units BID, NovoLog insulin sliding scale before each meal and at bedtime * Continue metformin 2. Sepsis of urological origin/BPH * Continue amoxicillin x 14 days * CBI discontinued in morning. Urine is bloody in urine bag * Plan is to monitor patient for 24 hours. Resume CBI. We will discontinue CBI tomorrow at 6 AM. Observe patient for at least 4-5 hours. If no evidence of bleeding or clots then we can discharge patient Home with Zelaya. He will follow up with Dr. Santos next week. 3. MARCO * Resolved 4. Incidental findings on CT abdomen and pelvis * Indeterminate cystic lesion within the tail of the pancreas with calcifications. pseudocyst versus a cystic pancreatic neoplasm. * Indeterminant liver lesion, cyst. * Small exophytic cyst at the lower pole the right kidney. * MRI abdomen was done without contrast yesterday. Same findings. Evaluation was limited due to lack of IV contrast * Plan is for open MRI with contrast as an outpatient 5. Acute blood loss anemia * 2/2 hematuria and clots in urine * H/H on ademission 15.6/47.2 * H/H today 9.0/26.6 * Monitor H/H daily and transfuse if Hb <7 6. Thrombocytopenia Resolved Diet consistent carbohydrate 2 DVT prophylaxis Alps because of thrombocytopenia FULL CODE Problem List: 1. BPH (benign prostatic hyperplasia) 2. Sepsis Pain Ratin Pain Location: none Pain Goal: Remain pain free Pain Plan: tylenol Tomorrow's Labs & Rationales: cbc DVT/Prophylaxis: mechanical
[2017-02-19 21:49] VITALS: BP 110/70
[2017-02-20 06:52] VITALS: BP 116/64
--- NOTE | 2017-02-20 08:04 | PN- Housestaff ---
Subjective Follow-up For: sp turp Subjective: pt seen today, cbi off since 6am, pt not happy about his urine color (pink bloody urine) and visibility of some specks in the urine. even though he really wants to go home, he is willing to stay another night if need be. cbi resumed till 6am tomorrow, will reassess tomorrow if pt can be discharged. Review of Systems Constitutional: Reports: see HPI. Objective Last 24 Hrs of Vital Signs/I&O Vital Signs Date Time Temp Pulse Resp B/P B/P Pulse O2 O2 Flow FiO2 Mean Ox Delivery Rate 02/21 652 97.9 82 16 116/64 95 Room Air 02/19 2149 98.3 76 20 110/70 97 Room Air 02/19 1345 97.8 80 20 140/80 98 Intake & Output 02/20 1600 02/20 0800 02/20 0000 Intake Total 300 800 Output Total 400 Balance -100 800 Intake, Oral 100 800 Intake, Other 200 Output, Urine 400 Physical Exam General Appearance: Alert, Oriented X3, Cooperative, No Acute Distress HEENT: Atraumatic Cardiovascular: Regular Rate, Normal S1, Normal S2 Lungs: Clear to Auscultation, Normal Air Movement Abdomen: Normal Bowel Sounds, Soft, No Tenderness Extremities: No Edema Current Medications: Current Medications Sig/Claire Start time Last Medication Dose Route Stop Time Status Admin Acetaminophen 325 MG Q6 PRN 02/05 1500 AC PO Amoxicillin 500 MG TID 02/19 1600 AC 02/19 PO 2103 Atorvastatin Calcium 5 [place] [address]/05 1800 AC 02/19 PO 1719 Insulin Aspart 0 AT BEDTIME 02/18 2200 AC SC Insulin Aspart 0 TIDAC 02/18 0800 AC 02/20 SC 0801 Insulin Detemir 16 UNITS BID 02/17 2200 AC 02/19 SC 2105 Lidocaine 1 PAT DAILY PRN 02/13 1015 AC EXT Lisinopril 10 MG DAILY 02/06 1429 AC 02/19 PO 0859 Metformin HCl 500 MG 0800,1700 02/12 1700 AC 02/20 PO 0801 Tamsulosin HCl 0.4 MG DAILY 02/06 1000 AC 02/19 PO 0858 Tramadol HCl 50 MG Q6P PRN 02/17 1815 AC 02/17 PO 1820 Assessment/Plan Assessment: Mr. Upton is a 77-year-old gentleman with past medical history of hypertension, HLD, and BPH who presented to the emergency department on 02/05/2017 complaining of urinary incontinence, polyuria and polydipsia. Was initially admitted to the ICU, transferred to on 02/06. 1. New onset diabetes mellitus type 2 * Continue with Levemir 16 units BID, NovoLog insulin sliding scale before each meal and at bedtime * Continue metformin 2. Sepsis of urological origin/BPH * Continue amoxicillin x 14 days * Urine is bloody in urine bag off cbi. Resume CBI. * Plan is to monitor patient for 24 hours. We will discontinue CBI tomorrow at 6 AM. Observe patient for at least 4-5 hours. If no evidence of bleeding or clots then we can discharge patient Home with Love. He will follow up with Dr. Santos next week. 3. MARCO * Resolved 4. Incidental findings on CT abdomen and pelvis * Indeterminate cystic lesion within the tail of the pancreas with calcifications. pseudocyst versus a cystic pancreatic neoplasm. * Indeterminant liver lesion, cyst. * Small exophytic cyst at the lower pole the right kidney. * MRI abdomen was done without contrast yesterday. Same findings. Evaluation was limited due to lack of IV contrast * Plan is for open MRI with contrast as an outpatient 5. Acute blood loss anemia * 2/2 hematuria and clots in urine * H/H on ademission 15.6/47.2 * Monitor H/H daily and transfuse if Hb <7 6. Thrombocytopenia Resolved Diet consistent carbohydrate 2 DVT prophylaxis Alps because of thrombocytopenia FULL CODE Problem List: 1. Hematuria Pain Ratin Pain Location: none Pain Goal: Remain pain free Pain Plan: none Tomorrow's Labs & Rationales: cbc for h/h hematuria DVT/Prophylaxis: mechanical
[2017-02-20 09:04] LABS: MEAN CORPUSCULAR HGB 31.2 PG (27.0-31.0); MEAN CORPUSCULAR HGB CONC 33.5 G/DL (33.0-37.0); MEAN CORPUSCULAR VOLUME 93.3 FL (80.0-94.0); MEAN PLATELET VOLUME 7.6 FL (7.4-10.4); PLATELET COUNT 130 /CUMM (130-400); RBC DISTRIBUTION WIDTH 13.1 % (11.5-14.5); RED BLOOD CELL CT 2.89 /CUMM (4.70-6.10)
[2017-02-20 12:13] LABS: ABSOLUTE BASOPHIL COUNT 0 /CUMM (0.0-0.2); ABSOLUTE EOSINOPHIL COUNT 0.1 /CUMM (0.0-0.7); ABSOLUTE GRANULOCYTE CT 3.9 /CUMM (1.4-6.5); ABSOLUTE LYMPH COUNT 1.7 /CUMM (1.2-3.4); ABSOLUTE MONOCYTE COUNT 0.2 /CUMM (0.10-0.60); BASOPHIL % 0.4 % (0.0-2.0); EOSINOPHIL % 2.1 % (0-5); GRANULOCYTE % 64.9 % (42.2-75.2)
--- NOTE | 2017-02-20 12:33 | PN- Diabetes ---
Assessment/Plan Assessment: Patient came into the hospital with uncontrolled diabetes, hyper glycemic hyperosmolar state, and was found to have sepsis with enterococcus. He has been placed on Unasyn for enterococcus sensitive to ampicillin. The CT scan of abdomen and pelvis shows evidence of chronic pancreatitis which could contribute to the onset of his diabetes.. Patient underwent revision TURP and evacuation of clots on 02/17/2017. He is eating diabetic diet. He still has hematuria. Currently, he is on Levemir 16 units twice a day, Novolog coverage before meals and Novolog coverage at bedtime and metformin 500 mg twice a day. His FSGs were 121, 167,152, 167, 114. Plan: continue the current DM regimen for now; monitor FSGs. will follow. Subjective Subjective: He still has hematuria. Objective Last 24 Hrs of Vital Signs/I&O Vital Signs Date Time Temp Pulse Resp B/P B/P Pulse O2 O2 Flow FiO2 Mean Ox Delivery Rate 02/20 1048 68 120/80 05/ 1048 68 120/70 / 0652 97.9 82 16 116/64 95 Room Air 02/19 2149 98.3 76 20 110/70 97 Room Air / 1345 97.8 80 20 140/80 98 Intake & Output / 1600 05/06 0800 05/ 0000 Intake Total 300 800 Output Total 400 Balance -100 800 Intake, Oral 100 800 Intake, Other 200 Output, Urine 400 Findings Pertinent Lab/Marck Results: Laboratory Tests 02/20 0720 Hematology CBC w Diff NO MAN DIFF REQ WBC (4.8 - 10.8 /CUMM) 6.0 RBC (4.70 - 6.10 /CUMM) 2.89 L Hgb (14.0 - 18.0 G/DL) 9.0 L Hct (42 - 52 %) 27.0 L MCV (80.0 - 94.0 FL) 93.3 MCH (27.0 - 31.0 PG) 31.2 H RDW (11.5 - 14.5 %) 13.1 Plt Count (130 - 400 /CUMM) 130 MPV (7.4 - 10.4 FL) 7.6 Gran % (42.2 - 75.2 %) 64.9 Lymphocytes % (20.5 - 51.1 %) 28.9 Monocytes % (1.7 - 9.3 %) 3.7 Eosinophils % (0 - 5 %) 2.1 Basophils % (0.0 - 2.0 %) 0.4 Absolute Granulocytes (1.4 - 6.5 /CUMM) 3.9 Absolute Lymphocytes (1.2 - 3.4 /CUMM) 1.7 Absolute Monocytes (0.10 - 0.60 /CUMM) 0.2 Absolute Eosinophils (0.0 - 0.7 /CUMM) 0.1 Absolute Basophils (0.0 - 0.2 /CUMM) 0 PUBS MCHC (33.0 - 37.0 G/DL) 33.5
[2017-02-20 15:19] VITALS: BP 112/58
--- NOTE | 2017-02-20 16:57 | PN- Att Addend ---
Attending Addendum Attending Brief Note Patient comfortable in bed, sister visiting. Patient was walking around and noticed tiny little clot in the urine. Patient still has the irrigation the urine is not red, has a dark maikel color. His vital signs are stable, no fever, sugars under fairly good control patient is concerned to learn how to use insulin. Will continue present treatment check with urology to see how much longer he needs to irrigation Current Medications Sig/Claire Start time Last Medication Dose Route Stop Time Status Admin Acetaminophen 325 MG Q6 PRN 02/05 1500 AC PO Amoxicillin 500 MG TID 02/19 1600 AC 02/20 PO 1048 Atorvastatin Calcium 5 [place] [address]002/05 1800 AC 02/19 PO 1719 Insulin Aspart 0 AT BEDTIME 02/18 2200 AC SC Insulin Aspart 0 TIDAC 02/18 0800 AC 02/20 SC 1220 Insulin Detemir 16 UNITS BID 02/17 2200 AC 02/20 SC 1049 Lidocaine 1 PAT DAILY PRN 02/13 1015 AC EXT Lisinopril 10 MG DAILY 02/06 1429 AC 02/20 PO 1048 Metformin HCl 500 MG 0800,02/12 1700 AC 02/20 PO 0801 Tamsulosin HCl 0.4 MG DAILY 02/06 1000 AC 02/20 PO 1048 Tramadol HCl 50 MG Q6P PRN 02/17 1815 AC 02/17 PO 1820 Laboratory Tests 02/20/17 0720: CBC w Diff NO MAN DIFF REQ, RBC 2.89 L, MCV 93.3, MCH 31.2 H, RDW 13.1, MPV 7.6, Gran % 64.9, Lymphocytes % 28.9, Monocytes % 3.7, Eosinophils % 2.1, Basophils % 0.4, Absolute Granulocytes 3.9, Absolute Lymphocytes 1.7, Absolute Monocytes 0.2, Absolute Eosinophils 0.1, Absolute Basophils 0, PUBS MCHC 33.5 Vital Signs Date Time Temp Pulse Resp B/P B/P Pulse O2 O2 Flow FiO2 Mean Ox Delivery Rate 02/20 1519 97.5 91 20 112/58 95 02/20 1048 68 120/80 02/21 1048 68 120/70 Intake & Output 02/20 1600 Intake Total 60 Output Total Balance 60 Intake, Oral 60
[2017-02-20 22:30] VITALS: BP 120/62; BP 130/88
[2017-02-21 06:30] VITALS: BP 146/78
[2017-02-21 09:17] LABS: ABSOLUTE BASOPHIL COUNT 0 /CUMM (0.0-0.2); ABSOLUTE EOSINOPHIL COUNT 0.1 /CUMM (0.0-0.7); ABSOLUTE GRANULOCYTE CT 2.7 /CUMM (1.4-6.5); ABSOLUTE LYMPH COUNT 1.6 /CUMM (1.2-3.4); ABSOLUTE MONOCYTE COUNT 0.2 /CUMM (0.10-0.60); BASOPHIL % 0.7 % (0.0-2.0); EOSINOPHIL % 2.4 % (0-5); GRANULOCYTE % 57.6 % (42.2-75.2); HEMATOCRIT 26.3 % (42-52); MEAN CORPUSCULAR HGB 31.1 PG (27.0-31.0); MEAN CORPUSCULAR HGB CONC 33.8 G/DL (33.0-37.0); MEAN CORPUSCULAR VOLUME 92.1 FL (80.0-94.0); MEAN PLATELET VOLUME 6.9 FL (7.4-10.4); PLATELET COUNT 177 /CUMM (130-400); RBC DISTRIBUTION WIDTH 13.1 % (11.5-14.5); RED BLOOD CELL CT 2.86 /CUMM (4.70-6.10); WHITE BLOOD CELL COUNT 4.6 /CUMM (4.8-10.8)
[2017-02-21 09:37] VITALS: BP 126/78
--- NOTE | 2017-02-21 11:07 | PN- Diabetes ---
Assessment/Plan Assessment: Patient came into the hospital with uncontrolled diabetes, hyper glycemic hyperosmolar state, and was found to have sepsis with enterococcus. He has been placed on Unasyn for enterococcus sensitive to ampicillin. The CT scan of abdomen and pelvis shows evidence of chronic pancreatitis which could contribute to the onset of his diabetes.. Patient underwent revision TURP and evacuation of clots on 02/17/2017. He is eating diabetic diet. He is going home today with the Love. Currently, he is on Levemir 16 units twice a day, Novolog coverage before meals and Novolog coverage at bedtime and metformin 500 mg twice a day. His FSGs were 175, 129, 92 and 115. Plan: 1. decrease Levemir to 12 units twice a day; 2. continue the current insulin regimen as inpatient. 3. if patient is medically stable for discharge, the discharge plan for DM ---Levemir 24 units daily starting tomorrow ( Levemier 12 units x1 tonight as he will receive Levemir 16 units in the morning in hospital) ---Metformin 1000 mg twice a day ( with breakfast and with dinner); ---Glimepiride 2 mg twice a day ( right before breakfast and right before dinner) ---monitor FSGs x 3-4 times a day; ---call office ne3xt Wednesday to touch base; --- f/u with Dr. Monterroso in the office after discharge. please call if there are any questions. Subjective Subjective: He isgoing home today. Objective Last 24 Hrs of Vital Signs/I&O Vital Signs Date Time Temp Pulse Resp B/P B/P Pulse O2 O2 Flow FiO2 Mean Ox Delivery Rate 02/21 937 98 126/78 02/21 0937 98 126/78 02/21 0630 98.6 83 18 146/78 98 Room Air 02/20 2230 98.7 77 19 120/62 99 Room Air 02/20 1519 97.5 91 20 112/58 95 Intake & Output 02/21 1600 02/21 0800 02/21 0000 Intake Total 2600 1330 Output Total 1500 750 Balance 1100 580 Intake, IV 10 Intake, Oral 100 1320 Intake, Other 2500 Output, Urine 1500 750 Findings Pertinent Lab/Marck Results: Laboratory Tests 02/21 814 Hematology CBC w Diff NO MAN DIFF REQ WBC (4.8 - 10.8 /CUMM) 4.6 L RBC (4.70 - 6.10 /CUMM) 2.86 L Hgb (14.0 - 18.0 G/DL) 8.9 L Hct (42 - 52 %) 26.3 L MCV (80.0 - 94.0 FL) 92.1 MCH (27.0 - 31.0 PG) 31.1 H RDW (11.5 - 14.5 %) 13.1 Plt Count (130 - 400 /CUMM) 177 MPV (7.4 - 10.4 FL) 6.9 L Gran % (42.2 - 75.2 %) 57.6 Lymphocytes % (20.5 - 51.1 %) 34.8 Monocytes % (1.7 - 9.3 %) 4.5 Eosinophils % (0 - 5 %) 2.4 Basophils % (0.0 - 2.0 %) 0.7 Absolute Granulocytes (1.4 - 6.5 /CUMM) 2.7 Absolute Lymphocytes (1.2 - 3.4 /CUMM) 1.6 Absolute Monocytes (0.10 - 0.60 /CUMM) 0.2 Absolute Eosinophils (0.0 - 0.7 /CUMM) 0.1 Absolute Basophils (0.0 - 0.2 /CUMM) 0 PUBS MCHC (33.0 - 37.0 G/DL) 33.8
[2017-02-21] MEDS ORDERED: GLIMEPIRIDE2 MG PO (11:27)
[2017-02-21] MEDS ORDERED: LEVEMIR100 UNIT/1 SC (11:27)
[2017-02-21] MEDS ORDERED: GLUCOPHAGE1000 M1 PO (11:27)
--- NOTE | 2017-02-21 14:12 | PN- Att Addend ---
Attending Addendum Attending Brief Note No new complaints. Urine finally looking better color more yellow and a little sediment in it vital signs are stable his a febrile no new changes on physical blood sugars are stable. Pharmacist was in the room teaching the patient how to use his insulin. Patient will be going home today, to follow with Joey Hackett MD and myself, monitor his blood sugars at home. Monitor his urine still has the Love catheter in place. See C MR and discharge summary. Current Medications Sig/Claire Start time Last Medication Dose Route Stop Time Status Admin Acetaminophen 325 MG Q6 PRN 02/05 1500 AC PO Amoxicillin 500 MG TID 02/19 1600 AC 02/21 PO 0937 Atorvastatin Calcium 5 MG 1700 02/05 1800 AC 02/20 PO 1702 Insulin Aspart 0 AT BEDTIME 02/18 2200 AC SC Insulin Aspart 0 TIDAC 02/18 0800 AC 02/21 SC 1256 Insulin Detemir 12 UNITS BID 02/21 2200 AC SC Insulin Detemir 16 UNITS BID 02/17 2200 DC 02/21 SC 0937 Lidocaine 1 PAT DAILY PRN 02/13 1015 AC EXT Lisinopril 10 MG DAILY 02/06 1429 AC 02/21 PO 0937 Metformin HCl 500 MG 0800,1700 02/12 1700 AC 02/21 PO 0814 Tamsulosin HCl 0.4 MG DAILY 02/06 1000 AC 02/21 PO 0937 Tramadol HCl 50 MG Q6P PRN 02/17 1815 AC 02/17 PO 1820 Laboratory Tests 02/21/17 0814: CBC w Diff NO MAN DIFF REQ, RBC 2.86 L, MCV 92.1, MCH 31.1 H, RDW 13.1, MPV 6.9 L, Gran % 57.6, Lymphocytes % 34.8, Monocytes % 4.5, Eosinophils % 2.4, Basophils % 0.7, Absolute Granulocytes 2.7, Absolute Lymphocytes 1.6, Absolute Monocytes 0.2, Absolute Eosinophils 0.1, Absolute Basophils 0, PUBS MCHC 33.8 Vital Signs Date Time Temp Pulse Resp B/P B/P Pulse O2 O2 Flow FiO2 Mean Ox Delivery Rate 02/21 937 98 126/78 05/ 0937 98 126/78 05/ 0630 98.6 83 18 146/78 98 Room Air
--- NOTE | 2017-02-21 14:44 | Discharge Summary ---
Visit Information Visit Dates Admission Date: 02/05/17 Discharge Date: 02/21/17 Hospital Course Course Attending Physician: TOMA TOLLIVER MD Primary Care Physician: TOMA TOLLIVER MD Consulting Request: Consulting Specialty: Endocrinology (urology, infectious diseases) Consulting Physician: Dr. Monterroso.Tonny Santos Reason for Consult: no diagnosis of diabetes mellitus with hyperosmolar state , enterococcus uri Hospital Course: 77-year-old white male, with BPH also dealing with a fungal infection on the penis. For several days before admission wasn't feeling well start to have some urinary incontinence some nausea some increased frequency in urination and polydipsia but comes to the ER found to have blood sugars, and the past sugars were never elevated overt 104 110, was found to be in hyperglycemic hyperosmolar state. He was admitted to the intensive care unit and treated properly was seen by endocrine Zhanna Monterroso MD to give recommendations also was found to have a sepsis of urological origin due to enterococcus her patient was treated with appropriate antibiotics as per infectious diseases recommendations. Appreciate CAT scan of the abdomen showed some indication of chronic pancreatitis at a certain time which might have been responsible for the development of the diabetes and for the BPH eventually had a urological procedure. Patient had a Zelaya catheter in place and irrigation. Once the irrigation was stopped patient had some more hematuria. He had a repeat cystoscopy which showed some bleeding vessels was taking care of and finally his urine start to clear the patient is stable to go home on February 21 his Zelaya catheter in place that his finished with his antibiotic treatment. Patient will follow with urology and myself Complications: Some bleeding from vessels in the prostate which needed to be cauterized Allergies: Coded Allergies: No Known Allergies (02/05/17) Significant Procedures: SERVICE DATE: 02/05/17 EXAM TYPE: RAD - XRY-PORTABLE CHEST XRAY EXAMINATION: XR PORTABLE CHEST CLINICAL INFORMATION: Cough. COMPARISON: Chest done on 09/07/2016. TECHNIQUE: Portable AP view of the chest was obtained. FINDINGS: Nonspecific bibasilar airspace disease is noted, new since prior study, may represent hypoventilatory, atelectatic changes, infiltrate or combination thereof. The remainder of the lung [place] bilaterally appear clear. The cardiomediastinal silhouette is within normal limits. There is no pleural effusion present. The visualized upper abdomen is unremarkable. IMPRESSION: Nonspecific bibasilar airspace disease, new since 09/07/2016, may represent infiltrate, atelectasis or combination thereof. SERVICE DATE: 02/06/17- EXAM TYPE: CAT - CT ABD & PELVIS W/ & W/O IV CO EXAMINATION: CT ABDOMEN AND PELVIS WITHOUT AND WITH CONTRAST CLINICAL INFORMATION: Septicemia COMPARISON: CT chest 09/29/2016 TECHNIQUE: Multidetector volumetric imaging was performed through the abdomen prior to IV contrast. The abdomen and pelvis were then reexamined after the administration of 94 mL Optiray 320 intravenous contrast. Sagittal and coronal reformatted images were obtained on the technologist's workstation. DLP: 1099.9 mGy-cm FINDINGS: LUNG BASES: The visualized lung bases are unremarkable. LIVER, GALLBLADDER, AND BILIARY TREE: The liver is grossly unremarkable on this noncontrast study. There is a hypodense lesion within segment 7 of the liver measuring 1 cm in size which is too small to characterize (image 67, series 3). The gallbladder is mildly distended. There is no pericholecystic fluid or wall edema. High density layering material is present within the gallbladder. PANCREAS: There are numerous punctate densities scattered throughout the pancreas. There is a cystic lesion within the tail of the pancreas measuring 1.3 cm which is best appreciated on the coronal images (image 47, series 602). SPLEEN: Unremarkable. ADRENAL GLANDS: Unremarkable. KIDNEYS AND URETERS: There is no hydronephrosis. There is symmetric bilateral perinephric stranding. An exophytic cystic structures identified lower pole of the right kidney measuring 1.3 cm. There are bilateral punctate densities within the collecting system of the kidneys consistent with nonfasting stones. BLADDER: A Zelaya catheter is present within the bladder. Soft tissue stranding is noted surrounding the superior aspect of the bladder. GASTROINTESTINAL TRACT: There are no dilated loops of small or large bowel. Innumerable diverticula are seen involving the descending and sigmoid colon. The appendix is unremarkable. ABDOMINAL WALL: There is a small fat-containing inguinal hernia on the left. LYMPH NODES: Normal. VASCULAR: Unremarkable. PELVIC VISCERA: The prostate gland appears significantly enlarged measuring 8 cm in transverse diameter and extending superiorly into the bladder. There are numerous coarse calcifications at the base of the prostate. OSSEOUS STRUCTURES: There is a right-sided pars defect at the L5-S1 level. There are mild degenerative changes of the visualized portions of the lower thoracic lumbar spine. No spondylolisthesis. IMPRESSION: 1. Distended gallbladder without other CT evidence for acute cholecystitis. Correlation with patient's symptoms and consideration of dedicated right upper quadrant ultrasound is suggested. 2. Prostatomegaly. Inflammatory changes surrounding the upper portion of the bladder. Underlying bladder infection cannot be completely excluded. 3. Indeterminate cystic lesion within the tail of the pancreas. Evidence for repeated bouts of pancreatitis given the number of calcifications. Differential diagnostic considerations for the cystic mass within the pancreatic tail would include a pseudocyst versus a cystic pancreatic neoplasm. Consider further dedicated evaluation with ERCP or MRCP. 4. Indeterminant liver lesion. This is statistically most likely to represent a cyst. 5. Small exophytic cyst at the lower pole the right kidney. 6. Diverticulosis without CT evidence for acute diverticulitis. SERVICE DATE: 02/09/17 EXAM TYPE: US - US-LIMITED ABDOMEN EXAMINATION: US ABDOMEN LIMITED CLINICAL INFORMATION: Sepsis, question biliary source. COMPARISON: CT 02/06/2017 TECHNIQUE: Real-time imaging of the right upper quadrant abdominal viscera. FINDINGS: PANCREAS: No fluid around the pancreas. The cystic lesion identified on CT is not imaged here. Liver measuring 17 cm. Prominent. Increased echogenicity. Maybe consistent with fatty change. Echogenic bile within the gallbladder. The stones identified on CT in the gallbladder neck cannot imaged here. There is no tenderness. No edema. The common duct is 5 mm within normal limits. The right kidney is 12 cm. No hydronephrosis. Cyst in the lower pole measuring 1.6 x 1.3 cm. IMPRESSION: There is some echogenic bile in the gallbladder correlating with CT. The stones seen in the region of the neck of the gallbladder on CT are not defined here. There is no ductal dilatation. No edema of the gallbladder wall. No tenderness. The cystic lesion identified on CT in the pancreas is not defined here. Echogenic liver consistent with fatty change. SERVICE DATE: 02/10/17 EXAM TYPE: MRI - MRI-ABDOMEN EXAMINATION: MR ABDOMEN WITHOUT CONTRAST CLINICAL INFORMATION: 77-year-old male presented with septicemia. CT scan of the abdomen and pelvis done on 02/06/2017 showed distended gallbladder without other CT evidence of acute cholecystitis, indeterminate cystic lesion within the tail of the pancreas and indeterminate liver lesion. Subsequent ultrasound of the right upper quadrant of the abdomen failed to reveal the CT detected pancreatic cystic lesion. Follow-up MRI of the abdomen/MRCP is requested for further clarification. COMPARISON: CT of the abdomen and pelvis done on 02/06/2017 and right upper quadrant abdominal ultrasound done on 02/09/2017. TECHNIQUE: Multiplanar, multisequential MR images of the abdomen is obtained without administration of intravenous contrast. MRCP was performed. FINDINGS: LUNG BASES: Unremarkable. LIVER, GALLBLADDER, BILIARY TREE: Concordant with recent CT scan, there are at least 3 discrete focal subcentimeter T2 hyperintensities identified within the liver, not optimally characterized on this noncontrast study. There is mild diffuse hepatic steatosis present. The gallbladder remains distended, measures 6.1 x 5.8 cm at its maximum craniocaudal by transverse dimension however, appears unchanged since 02/06/2017. The CT detected layering milk of calcium is better visualized on the prior CT study and grossly appears unchanged as well. Similar to prior CT study, there is no evidence of any wall thickening, pericholecystic fluid collection identified. The cystic duct appears prominent and shows hypointense filling defects, consistent with calculi, better seen on prior CT study dated 02/06/2017. The intrahepatic as well as extrahepatic biliary ducts are decompressed. The common bile duct measures approximately 4-5 mm and is within normal limits without any filling defect. PANCREAS: Evaluation is technically limited on this noncontrast study. However, similar to prior CT study, there is indeed a 1.1 cm maximum dimension T2 hyperintensity identified within the tail of the pancreas consistent with nonspecific cyst. The adjacent part of the pancreatic duct within the distal part of the body and tail of the pancreas also appears slightly irregular, nodular with subtle hint of focal dilatation. The remainder of the pancreatic duct appears normal in course, caliber. There is no peripancreatic fluid collection identified. Differential diagnostic consideration would include pseudopancreatic cyst with underlying focal likely chronic pancreatitis versus cystic neoplasm including intraductal papillary mucinous tumor (IPMT). Further differentiation cannot be made based on this imaging appearance alone. SPLEEN: Unremarkable. ADRENAL GLANDS AND KIDNEYS: Both adrenal glands are unremarkable. There is an exophytic T2 hyperintensity present at the inferior posterolateral cortex of the right kidney measures 1.8 cm. 1.5 cm intracortical T2 hyperintensity is noted at the superior pole of the left kidney. These likely represent incidental cysts. Evaluation is limited due to lack of IV contrast. URETERS AND BLADDER: The visualized part of both proximal ureters appear decompressed. The urinary bladder is not included within the [id number] and accordingly not evaluated. BOWEL LOOPS: The visualized bowel loops appear decompressed. LYMPHOVASCULAR STRUCTURES: No pathologically enlarged lymphadenopathy identified within the visualized retroperitoneum. PELVIS: Was not included within the [id number] and accordingly not evaluated. BONES: Multilevel degenerative spondylosis-related changes are noted within the included visualized spine. IMPRESSION: 1. Persistent stable distended gallbladder with layering milk of calcium and evidence of calculi within the cystic duct, without any gallbladder wall thickening or pericholecystic fluid collection, appears stable since 02/06/2017. 2. Multiple nonspecific T2 hyperintense lesions are noted within the liver, not optimally characterized on this nonenhanced study. 3. A 1.1 cm cystic abnormality within the tail of the pancreas and subtle irregularities involving the adjacent part of the main pancreatic duct involving the distal part of the body and tail. Evaluation is limited due to lack of intravenous contrast. Possible differential diagnostic consideration would include pseudopancreatic cyst with underlying focal likely chronic pancreatitis versus cystic neoplasm including intraductal papillary mucinous tumor. 4. Decompressed intrahepatic biliary tree as well as decompressed common bile duct without any MR evidence of choledocholithiasis. 5. Bilateral T2 hyperintensities within the kidneys likely represent cortical renal cysts. Evaluation is limited due to lack of IV contrast. SERVICE DATE: 02/08/17- EXAM TYPE: CARD - ECHOCARDIOGRAM AAKASH CHENEY Age: 77 : 1940 Gender: M Exam Date: 02/08/2017 18:59 Exam Location: [address] [place] [address] Ht (in): 69 Wt (lb): 220 BSA: 2.24 BP: 120 / 60 Ordering Physician: DANA ADEN MD Referring Physician: DANA ADEN MD Technologist: Bibi Najera [facility] Room Number: 232 Indications: VENTRICULAR TACHYCARDIA Rhythm: Sinus Technical Quality: Fair FINDINGS Left Ventricle Normal size left ventricle. No obvious regional wall motion abnormalities. Normal left ventricular ejection fraction estimated at 55-60%. Right Ventricle Right ventricle not well visualized, grossly normal. Right Atrium Normal right atrial size. Left Atrium Mild left atrial dilatation. Mitral Valve Mitral valve thickened. Trace mitral regurgitation. Aortic Valve Trileaflet aortic valve. Diffuse thickening (sclerosis) of the aortic valve cusps without reduced excursion. No aortic stenosis. No aortic regurgitation. Tricuspid Valve Tricuspid valve not well visualized. Trace to mild tricuspid regurgitation. Right ventricular systolic pressure estimated at 30 mmHg. Pulmonic Valve Pulmonic valve not well visualized, grossly normal. Trace to mild pulmonic regurgitation. Pericardium No pericardial effusion. Great Vessels Aortic root and proximal ascending aorta not well visualized, grossly normal. CONCLUSIONS 1. This was a technically difficult examination. 2. Aortic sclerosis is present with no valvular stenosis or insufficiency. 3. Mitral leaflet thickening is present with minimal mitral insufficiency. 4. There is no pericardial fluid detected. 5. The left ventricular chamber size and systolic function appear normal. 6. The right heart structures were not optimally visualized. Minimal to mild tricuspid and pulmonic insufficiency are present with no evidence of pulmonary hypertension. Operative/Inv Procedure Report Surgery Date: 02/11/17 Name of Procedure: cystoscopy: standard TURP Pre-Operative Diagnosis: gross hematuria: urinary retention and failed multiple voiding trials. Post-Operative Diagnosis: same Estimated Blood Loss: 50ml to 100ml Surgeon/Operational Risk Analyst: MD NONA [facility] Anesthesia: laryngeal mask airway Drains: 22 FR: 3-Way with NS CBI Specimens: Prostate chips Complications: None Operative/Procedure Note Note: The patient was taken to the operating room and placed on the OR table in supine position. Timeout was performed, with the pt. awake, to correctly identify the patient, anesthesia, procedure, and IV antibiotics, and other pertinent perioperative information. After adequate anesthesia and antibiotics, the old Zelaya catheter was removed. The patient was then placed in lithotomy stirrups using yellowfin stirrups. The patient was then draped and prepped in the usual surgical fashion. A 26 Uzbek standard resectoscope sheath with a 30 angle lens and the 24 Uzbek loop was inserted into the urethra, and then advanced into the bladder without difficulty. A FEW small clots, and bladder stones, were noted in the bladder, and were Ellix evacuated out. With a clearer vision, the prostate was noted to have an irregular and ratty surface with severely coapting lobes. Additionally, the prostate was hypervascular consistent with regrowth. Upon entering the bladder, it was thoroughly and systematically surveyed revealing no evidence of tumor, no evidence of stone, both orifices were difficult to find due to the severe trabeculation, in their orthotopic position with clear yellow reflux. The resectoscope was then retracted to the level of the venu montanum. Under direct visualization the 24 Uzbek loop was then extended beyond the scope. Under direct visualization, and using the cutting current, the left lobe of the prostate was resected from the 2:00 to the 6 o'clock position to the level of the fibromuscular capsule. Using coag current, spot cauterization was performed in order to achieve good hemostasis of the prostate. The loop was then extended once again using cutting current to resect the right side of the prostate from the 10:00 to the 6 o'clock position to the level of the fibromuscular capsule. Spot cauterization using coag current was then performed in order to achieve good hemostasis. Maintaining the position of the resectoscope at the level of the vera montanum the apical tissue was resected as well on both sides. The external sphincter was preserved. The bladder was then re-entered via the resectoscope, and the prostate chips were irrigated out using tumey evacuation. Once all the prostate chips were removed, the bladder was re-evaluating and noted to have no untoward injury. Additionally, the prostate channel was noted to have good hemostasis, with a wide open channel. The resectoscope was removed with the bladder full. A 22 Uzbek couvalier three-way Zelaya catheter was inserted without difficulty draining clear fluid. The bladder was again copiously irrigated via the zelaya to ensure patency/ The 30 mL balloon was then filled, and continuous bladder irrigation with normal saline was initiated. Clear and easy drainage of NS from the main port was confirmed with CBI. All sponge needle and instrument count were correct at the end of the case. The patient tolerated the procedure well and was then taken to the recovery room in satisfactory condition. Findings: Large prostate. Approximately 20 g of prostate chips removed. Discharge Disposition: PACU CC: SMILEY SANTOS MD Operative/Inv Procedure Report Surgery Date: 02/17/17 Name of Procedure: REVISION TURP. CYSTO-EVACUATION OF CLOT. FULGURATION OF BLEEDING PROSTATE VESSELS. Pre-Operative Diagnosis: BLOOD LOSS ANEMIA 2ND TO PROSTATE OOZING Post-Operative Diagnosis: SAME Estimated Blood Loss: 50ml to 100ml Surgeon/Operational Risk Analyst: MD SANTOS [facility] Anesthesia: moderate sedation Drains: 24 FR. 3-WAY WITH NS CBI Specimens: PROSTATE CHIPS Complications: NONE Operative/Procedure Note Findings: APICAL PROSTATE TISSUE BLEED. Pertinent Lab Results: 02/05/17 1410: pH 7.40, pCO2 33 L, pO2 76 L, HCO3 20 L, ABG O2 Sat (Measured) 93.0 L, Carboxyhemoglobin 0.8 L, O2 Concentration % .21, O2 Delivery Method RA, Phlebotomy Draw Site LEFT RADIAL 02/05/17 1310: Anion Gap 17 H, Estimated GFR 37 L, BUN/Creatinine Ratio 24.4, Glucose 1146 *H , Hemoglobin A1c 12.2 H, Serum Osmolality 355 H, Calcium 9.7, Total Bilirubin 0.8, AST 28, ALT 71, Alkaline Phosphatase 99, Troponin I < 0.01, Total Protein 6.4, Albumin 4.1, Globulin 2.3, Albumin/Globulin Ratio 1.8, CBC w Diff NO MAN DIFF REQ, RBC 4.96, MCV 95.2 H, MCH 31.5 H, RDW 12.7, MPV 9.2, Gran % 89.7 H, Lymp 02/08/17 0620: Anion Gap 8, Estimated GFR > 60, BUN/Creatinine Ratio 17.5, CBC w Diff NO MAN DIFF REQ, RBC 3.93 L, MCV 92.4, MCH 31.3 H, RDW 13.1, MPV 8.5, Gran % 55.4, Lymphocytes % 37.4, Monocytes % 4.1, Eosinophils % 2.7, Basophils % 0.4, Absolute Granulocytes 2.7, Absolute Lymphocytes 1.8, Absolute Monocytes 0.2, Absolute Eosinophils 0.1, Absolute Basophils 0, PUBS MCHC 33.9 02/07/17 0800: Anion Gap 6, Estimated GFR > 60, Glucose 223 H, Calcium 8.3 L, Phosphorus 2.8, Magnesium 2.0, Total Bilirubin 0.3, AST 43, ALT 72, Albumin 2.5 L, CBC w Diff NO MAN DIFF REQ, RBC 4.09 L, MCV 92.7, MCH 31.2 H, RDW 13.3, MPV 8.9, Gran % 61.8, Lymphocytes % 32.4, Monocytes % 4.2, Eosinophils % 1.3, Basophils % 0.3, Absolute Granulocytes 3.6, Absolute Lymphocytes 1.9, Absolute Monocytes 0.2, Absolute Eosinophils 0.1, Absolute Basophils 0, PUBS MCHC 33.6 02/06/17 0510: Anion Gap 8, Estimated GFR > 60, Glucose 146 H, Calcium 8.5, Phosphorus 2.9, Magnesium 2.3, Total Bilirubin 0.3, AST 25, ALT 57, Albumin 2.4 L, CBC w Diff NO MAN DIFF REQ, RBC 3.95 L, MCV 93.6, MCH 31.2 H, RDW 13.1, MPV 8.7, Gran % 74.4, Lymphocytes % 20.3 L, Monocytes % 4.7, Eosinophils % 0.6, Basophils % 0 L, Absolute Granulocytes 7.2 H, Absolute Lymphocytes 2.0, Absolute Monocytes 0.5, Absolute Eosinophils 0.1, Absolute Basophils 0, [facility] MCHC 33.3 02/06/17 0100: Anion Gap 8, Estimated GFR 58 L, Glucose 189 H, Calcium 8.9, Phosphorus 3.6, Magnesium 2.5 H, Total Bilirubin 0.3, AST 25, ALT 56, Albumin 2.8 L 02/05/17 2138: Anion Gap 8, Estimated GFR 58 L, Glucose 149 H, Calcium 9.3, Phosphorus 3.2, Magnesium 2.6 H, Total Bilirubin 0.4, AST 27, ALT 57, Albumin 3.1 L Microbiologyhocytes % 5.7 L, Monocytes % 4.3, Eosinophils % 0, Basophils % 0.3 , Absolute Granulocytes 11.1 H, Absolute Lymphocytes 0.7 L, Absolute Monocytes 0.5, Absolute Eosinophils 0, Absolute Basophils 0, [facility] MCHC 33.1, Acetone Level POSITIVE AT 1:4 DIL 02/05/17 1250: Urine Color YEL, Urine Clarity CLEAR, Urine pH 5.5, Ur Specific Widen <= 1.005 , Urine Protein NEG, Urine Ketones 15 H, Urine Nitrite NEG, Urine Bilirubin NEG , Urine Urobilinogen 0.2, Ur Leukocyte Esterase NEG, Ur Microscopic SEDIMENT EXAMINED, Urine RBC 1-3, Urine WBC 1-3 H, Ur Epithelial Cells RARE, Urine Bacteria RARE H, Urine Mucus RARE, Urine Hemoglobin MOD H, Urine Glucose >= 1000 H 02/11/17 0630: PT 11.2, INR 1.07, CBC w Diff NO MAN DIFF REQ, RBC 3.85 L, MCV 92.1, MCH 31.6 H, RDW 12.9, MPV 7.9, Gran % 56.3, Lymphocytes % 34.0, Monocytes % 6.3, Eosinophils % 3.1, Basophils % 0.3, Absolute Granulocytes 2.7, Absolute Lymphocytes 1.6, Absolute Monocytes 0.3, Absolute Eosinophils 0.1, Absolute Basophils 0, PUBS MCHC 34.3 02/12/17 0725: 02/15/17 0648: CBC w Diff NO MAN DIFF REQ, RBC 3.23 L, MCV 94.1 H, MCH 31.7 H, RDW 12.9, MPV 7.3 L, Gran % 57.2, Lymphocytes % 35.3, Monocytes % 4.5, Eosinophils % 2.5, Basophils % 0.5, Absolute Granulocytes 2.7, Absolute Lymphocytes 1.6, Absolute Monocytes 0.2, Absolute Eosinophils 0.1, Absolute Basophils 0, PUBS MCHC 33.7 02/14/17 1700: CBC w Diff NO MAN DIFF REQ, RBC 3.73 L, MCV 92.4, MCH 30.9, RDW 13.4, MPV 7.2 L, Gran % 55.2, Lymphocytes % 35.4, Monocytes % 5.3, Eosinophils % 3.0, Basophils % 1.1, Absolute Granulocytes 2.8, Absolute Lymphocytes 1.8, Absolute Monocytes 0.3, Absolute Eosinophils 0.2, Absolute Basophils 0.1, PUBS MCHC 33.5 02/13/17 0630: CBC w Diff NO MAN DIFF REQ, RBC 3.20 L, MCV 92.3, MCH 31.8 H, RDW 13.2, MPV 7.9, Gran % 59.4, Lymphocytes % 31.0, Monocytes % 6.6, Eosinophils % 2.6, Basophils % 0.4, Absolute Granulocytes 3.6, Absolute Lymphocytes 1.9, Absolute Monocytes 0.4, Absolute Eosinophils 0.2, Absolute Basophils 0, PUBS MCHC 34.4 Anion Gap 6, Estimated GFR > 60, BUN/Creatinine Ratio 7.5, CBC w Diff NO MAN DIFF REQ, RBC 3.59 L, MCV 93.1, MCH 32.0 H, RDW 13.2, MPV 7.5, Gran % 72.2, Lymphocytes % 19.8 L, Monocytes % 5.2, Eosinophils % 2.3, Basophils % 0.5, Absolute Granulocytes 4.4, Absolute Lymphocytes 1.2, Absolute Monocytes 0.3, Absolute Eosinophils 0.1, Absolute Basophils 0, PUBS MCHC 34.4 02/16/17 0715: CBC w Diff NO MAN DIFF REQ, RBC 3.25 L, MCV 92.8, MCH 31.5 H, RDW 13.2, MPV 6.8 L, Gran % 62.8, Lymphocytes % 28.4, Monocytes % 5.8, Eosinophils % 2.7, Basophils % 0.3, Absolute Granulocytes 3.3, Absolute Lymphocytes 1.5, Absolute Monocytes 0.3, Absolute Eosinophils 0.1, Absolute Basophils 0, PUBS MCHC 33.9 02/17/17 0650: CBC w Diff NO MAN DIFF REQ, RBC 3.12 L, MCV 92.7, MCH 31.7 H, RDW 13.4, MPV 7.2 L, Gran % 59.9, Lymphocytes % 32.2, Monocytes % 5.0, Eosinophils % 2.5, Basophils % 0.4, Absolute Granulocytes 3.2, Absolute Lymphocytes 1.7, Absolute Monocytes 0.3, Absolute Eosinophils 0.1, Absolute Basophils 0, PUBS Date Time Temp Pulse Resp B/P B/P Pulse O2 O2 Flow FiO2 Mean Ox Delivery Rate 02/17 633 98.9 74 18 120/62 93 Room Air 02/18/17 0625: Anion Gap 7, Estimated GFR > 60, BUN/Creatinine Ratio 12.9, CBC w Diff NO MAN DIFF REQ, RBC 2.89 L, MCV 92.3, MCH 31.8 H, RDW 13.1, MPV 7.3 L, Gran % 74.6, Lymphocytes % 19.2 L, Monocytes % 4.5, Eosinophils % 1.4, Basophils % 0.3, Absolute Granulocytes 5.0, Absolute Lymphocytes 1.3, Absolute Monocytes 0.3, Absolute Eosinophils 0.1, Absolute Basophils 0, PUBS MCHC 34.5 02/20/17 0720: CBC w Diff NO MAN DIFF REQ, RBC 2.89 L, MCV 93.3, MCH 31.2 H, RDW 13.1, MPV 7.6, Gran % 64.9, Lymphocytes % 28.9, Monocytes % 3.7, Eosinophils % 2.1, Basophils % 0.4, Absolute Granulocytes 3.9, Absolute Lymphocytes 1.7, Absolute Monocytes 0.2, Absolute Eosinophils 0.1, Absolute Basophils 0, PUBS MCHC 33.5 02/21/17 0814: CBC w Diff NO MAN DIFF REQ, RBC 2.86 L, MCV 92.1, MCH 31.1 H, RDW 13.1, MPV 6.9 L, Gran % 57.6, Lymphocytes % 34.8, Monocytes % 4.5, Eosinophils % 2.4, Basophils % 0.7, Absolute Granulocytes 2.7, Absolute Lymphocytes 1.6, Absolute Monocytes 0.2, Absolute Eosinophils 0.1, Absolute Basophils 0, PUBS MCHC 33.8 Disposition Summary Disposition Principal Diagnosis: Uncontrolled diabetes Hyperglycemic hyperosmolar state Enterococcus sepsis urological origin Chronic pancreatitis BPH, status post TURP Additional Diagnosis: Hypertension Hyperlipidemia Discharge Disposition: home or self care Discharge Instructions General Discharge Information Code Status: Full Code Patient's Diet: Diabetic and healthy heart Patient's Activity: Self-limited Follow-Up Instructions/Appts: Follow with Dr. Santos, Zhanna Monterroso MD and Dr. Tolliver Medications at Discharge Discharge Medications: Stop taking the following medications: Cephalexin (Cephalexin) 500 MG CAPSULE ORAL WEEKLY Qty = 20 Continue taking these medications: Rosuvastatin Calcium (Crestor) 5 MG TABLET 1 Tablet ORAL DAILY Qty = 90 Comments: Last Taken: 02/20/17 Time: 1700 Trandolapril (Trandolapril) 1 MG TABLET 1 Milligram ORAL Every Day Qty = 90 Comments: Last Taken: 02/20/17 Time: 1700 Ubidecarenone (Coq-10) 100 MG CAPSULE 200 Milligram ORAL Every Day Comments: NOT TAKEN IN HOSPITAL Multivitamin (One Daily Multivitamin) 1 EACH TABLET 1 Tablet ORAL DAILY Comments: NOT TAKEN IN HOSPITAL Fish Oil/Borage/Flax/Om3,6,9#1 ([place] 3-6-9 1,200 MG Softgel) 1,200 MG CAPSULE 1 Capsule ORAL DAILY Comments: NOT TAKEN IN HOSPITAL Start taking the following new medications: Insulin Detemir (Levemir) 100 UNIT/ML VIAL 24 Units Inject into fatty tissue DAILY Qty = 1 No Refills Instructions: On day of discharge, 02/21/2017, take Levermir 12u at night Start Levemir 24 units daily starting 02/22/2017 Metformin HCl (Glucophage) 1,000 MG TABLET 1 Tablet ORAL TWICE DAILY Qty = 60 No Refills Instructions: Take one tab with breakfast and one with dinner Comments: Last Taken: 02/21/17 Time: 0800 Glimepiride (Glimepiride) 2 MG TABLET 1 Tablet ORAL TWICE DAILY Qty = 30 No Refills Instructions: Take one tablet BEFORE breakfast and take one tablet BEFORE dinner Tamsulosin HCl (Flomax) 0.4 MG CAP.ER.24H 0.4 Milligram ORAL DAILY Qty = 30 No Refills Comments: Last Taken: 02/21/17 Time: 1000 Copies To: JUSTIN CHAUHAN,ZHANNA Gunn; TONNY CHAUHAN,MARIA INES Parker; SMILEY SANTOS MD; LYRIC CHAUHAN,TOMA Attending MD Review Statement Documenting Attending: TOMA TOLLIVER MD
--- NOTE | 2017-02-21 16:41 | PN- Housestaff ---
Subjective Follow-up For: Hyperosmolar hyperglycemic state Hematuria Subjective: The patient bedside the same. He had no blood in his Love. DC'd CBI at 6 AM. Patient likely going home today Review of Systems Constitutional: Reports: no symptoms. Denies: chills, fever. EENTM: Reports: no symptoms. Cardiovascular: Reports: no symptoms. Respiratory: Reports: no symptoms. Gastrointestinal: Reports: no symptoms. Genitourinary: Reports: no symptoms. Musculoskeletal: Reports: no symptoms. Skin: Reports: no symptoms. Objective Last 24 Hrs of Vital Signs/I&O Vital Signs Date Time Temp Pulse Resp B/P B/P Pulse O2 O2 Flow FiO2 Mean Ox Delivery Rate 02/21 0937 98 126/78 05 0937 98 126/78 02/21 0630 98.6 83 18 146/78 98 Room Air 02/20 2230 98.7 77 19 120/62 99 Room Air Intake & Output 02/21 1600 05/ 0800 05/ 0000 Intake Total 600 2600 1330 Output Total 450 1500 750 Balance 150 1100 580 Intake, IV 10 Intake, Oral 117 398 0321 Intake, Other 2500 Number 1 Bowel Movements Output, Urine 450 1500 750 Physical Exam General Appearance: Alert, Oriented X3, Cooperative, No Acute Distress Skin: No Significant Lesion HEENT: Atraumatic, PERRLA, EOMI Neck: Supple Cardiovascular: Regular Rate, Normal S1, Normal S2 Lungs: Normal Air Movement Abdomen: Soft, No Tenderness Extremities: Normal Pulses Assessment/Plan Assessment: Mr. Upton is a 77-year-old gentleman with past medical history of hypertension, HLD, and BPH who presented to the emergency department on 02/05/2017 complaining of urinary incontinence, polyuria and polydipsia. Was initially admitted to the ICU, transferred to on 02/06. 1. New onset diabetes mellitus type 2 * Continue with Levemir 16 units BID, NovoLog insulin sliding scale before each meal and at bedtime * Continue metformin 2. Sepsis of urological origin/BPH * Continue amoxicillin x 14 days * Patient off CBI. Urine in Love bag without evidence of hematuria. * Discharge patient with Love. Follow-up with Dr. Santos early next week. 3. MARCO * Resolved 4. Incidental findings on CT abdomen and pelvis * Indeterminate cystic lesion within the tail of the pancreas with calcifications. pseudocyst versus a cystic pancreatic neoplasm. * Indeterminant liver lesion, cyst. * Small exophytic cyst at the lower pole the right kidney. * MRI abdomen was done without contrast yesterday. Same findings. Evaluation was limited due to lack of IV contrast * Plan is for open MRI with contrast as an outpatient 5. Acute blood loss anemia * 2/2 hematuria and clots in urine * H/H on ademission 15.6/47.2 * Monitor H/H daily and transfuse if Hb <7 6. Thrombocytopenia Resolved Diet consistent carbohydrate 2 DVT prophylaxis Alps because of thrombocytopenia FULL CODE Problem List: 1. Hematuria 2. BPH (benign prostatic hyperplasia) 3. Diabetic hyperosmolar non-ketotic state Pain Ratin Pain Location: none Pain Goal: Remain pain free Pain Plan: none Tomorrow's Labs & Rationales: none DVT/Prophylaxis: pharmacological Consulting Request: Consulting Specialty: Endocrinology (urology, infectious diseases) Consulting Physician: Dr. Monterroso.Catina Santos Reason for Consult: no diagnosis of diabetes mellitus with hyperosmolar state , enterococcus uri
== END 2017-02-21 15:08 | disposition home health service (06) | DRG 853 ==
LOC: DELPENDDIS → ERH 11:44 → ERHI 15:06 → 2NA 15:06 → ENRESERV 15:26 → CRI 16:46 → 2NA 02-06 22:47 → ENPENDDIS 02-16 10:39 → 2NA 02-21 15:08
PROVIDERS: Internal Medicine; Internal Medicine Hematology & Oncology; Internal Medicine Interventional Cardiology; Physician Assistant; Radiology Diagnostic Radiology; Student in an Organized Health Care Education/Training Program; ADMIT Internal Medicine
PROC: 0VB08ZZ Excision of Prostate, Via Natural or Artificial Opening Endoscopic (ICD-10-PCS; principal; 2017-02-11)
PROC: 0VB08ZZ Excision of Prostate, Via Natural or Artificial Opening Endoscopic (ICD-10-PCS; 2017-02-17)
PROC: 0TCB8ZZ Extirpation of Matter from Bladder, Via Natural or Artificial Opening Endoscopic (ICD-10-PCS; 2017-02-17)
PROC: 0W3R8ZZ Control Bleeding in Genitourinary Tract, Via Natural or Artificial Opening Endoscopic (ICD-10-PCS; 2017-02-17)
DX: A41.81 Sepsis due to Enterococcus (principal); E11.00 Type 2 diabetes mellitus with hyperosmolarity without nonketotic hyperglycemic-hyperosmolar coma (NKHHC); N17.9 Acute kidney failure, unspecified; D69.6 Thrombocytopenia, unspecified; E87.1 Hypo-osmolality and hyponatremia; D62 Acute posthemorrhagic anemia; K86.1 Other chronic pancreatitis; E87.5 Hyperkalemia; E86.0 Dehydration; N21.0 Calculus in bladder; N32.89 Other specified disorders of bladder; N40.1 Benign prostatic hyperplasia with lower urinary tract symptoms; I10 Essential (primary) hypertension; E78.5 Hyperlipidemia, unspecified; N48.1 Balanitis; R33.8 Other retention of urine; E66.9 Obesity, unspecified; Z68.32 Body mass index [BMI] 32.0-32.9, adult; Z79.4 Long term (current) use of insulin
CPT/HCPCS: 2NAP; 74181; CCU; 36415; 74178; 81001; 82436; 87040; 87086; 87147; 88305; 93005; 93010; 93306; 96361; 96374; 99291; J0131; J0290; J0610; J0690; J1644; J1815; J1885; J2405; J3480; J7042